=== PATIENT | female | born 1940 | race Hispanic/Latino ===

== ENCOUNTER 2017-06-07 10:57 | Emergency (ER) | payer MEDICARE, OTHER ==
[2017-06-07 11:25] VITALS: BMI 32.0
[2017-06-07 11:38] VITALS: TEMP 98.3
--- NOTE | 2017-06-07 11:50 | RAD ---
HISTORY: r/o infiltrate COMPARISON: 03/29/2016 at 1335 hours FINDINGS: LUNGS: Shallow lung volumes. No consolidation PLEURA: No significant pleural effusion identified, no pneumothorax apparent. CARDIOVASCULAR: Cardiomegaly. Central pulmonary venous congestion probable- in addition to crowding due to shallow lung volumes OSSEOUS STRUCTURES: Cervical thoracic spondylosis. Bilateral shoulder arthrosis. . 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 OTHER FINDINGS: None. IMPRESSION: Cardiomegaly with central pulmonary venous congestion - probably similar allowing for the more shallow current lung volumes.
--- NOTE | 2017-06-07 11:54 | C.PDOC ---
History Of Present Illness 77 year old female presents to the ED c/o upper abdominal pain she describes as "squeezing" for the past 2 days. Patient reports she ate last night without any difficulty. Patient denies fever, chills, nausea, vomit, CP, SOB, cough. Chief Complaint (Nursing): Chest Pain History Per: Patient History/Exam Limitations: no limitations Onset/Duration Of Symptoms: Days Current Symptoms Are (Timing): Still Present Quality: Squeezing Alleviating Factors: None Recent travel outside of the [place]: No Additional History Per: Patient Past Medical History Reviewed: Historical Data, Nursing Documentation, Vital Signs Vital Signs: Last Vital Signs Temp 98.3 F 06/07/17 11:38 Pulse 68 06/07/17 14:07 Resp 16 06/07/17 14:07 BP 119/58 L 06/07/17 14:07 Pulse Ox 98 06/07/17 14:07 - Medical History PMH: Anemia, Anxiety, Arthritis, CHF, Depression, Fractures (right ankle), Gall Bladder Disease, HTN, Hypercholesterolemia, Hypothyroidism Denies: Alzheimer's Disease, Asthma, Bipolar Disorder, Bronchitis, Cardia Arrhythmia, COPD, Crohn's Disease, Dementia, Diverticulitis, Emphysema, Fibromyalgia, Gastrointestinal Ulcer, HIV, Hyperthyroidism, Kidney Stones, Migraine, Mitral Valve Prolapse, Osteoporosis, Pancreatitis, Paranoia, Parkinson 's Disease, Peripheral Edema, Pneumonia, Post Traumatic Stress Disorder, Chronic Kidney Disease, Schizophrenia, Seizures, Sickle Cell Disease, Sexually Transmitted Disease, Sleep Apnea, TIA Surgical History: Cholecystectomy, Coronary Stent (x2) Denies: Appendectomy, Pacemaker - [facility] Procedures FLUOROSCOPY OF LEFT HEART USING LOW OSMOLAR CONTRAST (03/29/16) FLUOROSCOPY OF MULT COR ART USING L OSM CONTRAST (03/29/16) MEASURE OF CARDIAC SAMPL & PRESSURE, L HEART, PERC APPROACH (03/29/16) Family History: States: Unknown Family Hx - Social History Hx Alcohol Use: No Hx Substance Use: No Review Of Systems Constitutional: Negative for: Fever, Chills Cardiovascular: Negative for: Chest Pain, Palpitations Respiratory: Negative for: Cough, Shortness of Breath Gastrointestinal: Positive for: Abdominal Pain. Negative for: Nausea, Vomiting Genitourinary: Negative for: Dysuria Musculoskeletal: Negative for: Back Pain Skin: Negative for: Rash Neurological: Negative for: Weakness, Numbness Physical Exam - Physical Exam Appears: Non-toxic, No Acute Distress Skin: Normal Color, Warm, Dry Head: Atraumatic, Normacephalic Nose: No Discharge Oral Mucosa: Moist Neck: Normal ROM, Supple Chest: Symmetrical Cardiovascular: Rhythm Regular, No Murmur Respiratory: Normal Breath Sounds, No Rales, No Rhonchi, No Wheezing Gastrointestinal/Abdominal: Soft, Tenderness (mild upper abdomen), No Guarding, No Rebound Extremity: Normal ROM, Pedal Edema (lower extremities), No Calf Tenderness, No Deformity, No Swelling Neurological/Psych: Oriented x3, Normal Speech, Normal Cognition ED Course And Treatment - Laboratory Results Result Diagrams: 06/07/17 11:50 06/07/17 11:50 ECG: Interpreted By Me, Viewed By Me ECG Rhythm: Sinus Rhythm Interpretation Of ECG: Left axis deviation, 1st degree AV block Rate From EC O2 Sat by Pulse Oximetry: 97 (On RA) Pulse Ox Interpretation: Normal - Radiology CXR: Viewed By Me, Read By Radiologist CXR Interpretation: Yes: Cardiomegaly (Cardiomegaly with central pulmonary venous congestion - probably similar allowing for the more shallow current lung volumes.) - CT Scan/US CT abd/pelvis Other Rad Studies (CT/US): Read By Radiologist, Radiology Report Reviewed CT/US Interpretation: FINDINGS: LOWER THORAX: No infiltrate or effusion. Mild cardiomegaly. Coronary arterial calcification. LIVER: Nodular contour consistent with hepatic cirrhosis. No mass. No biliary ductal dilatation. GALLBLADDER AND BILE DUCTS: Not visualized. Likely contracted. Please correlate with any history of cholecystectomy. PANCREAS: Unremarkable. No gross lesion or ductal dilatation. SPLEEN: Unremarkable. ADRENALS: Unremarkable. No mass. KIDNEYS AND URETERS: Partially duplicated right renal collecting system. Right upper pole renal cyst, 7.1 cm, measuring 7 Hounsfield units attenuation. Two small nonobstructing calculi lower pole left kidney. Probable cortical calcification mid left kidney. No hydronephrosis. VASCULATURE : Unremarkable. No aortic aneurysm. BOWEL: Diverticulosis of distal descending and sigmoid colon. No evidence of diverticulitis. No bowel obstruction. APPENDIX: Unremarkable. Normal appendix. PERITONEUM: Unremarkable. No free fluid. No free air. LYMPH NODES: Unremarkable. No enlarged lymph nodes. BLADDER: Unremarkable. REPRODUCTIVE: Normal postmenopausal uterus. BONES: No evidence of fracture. Multilevel degenerative disc disease. OTHER FINDINGS: None. IMPRESSION: Probable hepatic cirrhosis. Gallbladder not well visualized. Likely contracted. Coronary arterial calcification. Additional minor findings as above Medical Decision Making Medical Decision Making: Impression : abdominal pain Plan: * EKG * CT abdo/pelvis * Blood work * Pepcid 20 mg IVP * Toradol 30 mg IVP * Zofran 4 mg IVP * urine culture * UA Patient states she is feeling better and will be d/c home. Patient was instructed to follow up with her PMD in 1-2 days for further evaluation. Disposition - Disposition Referrals: Heath Han [Staff Provider] - Disposition: HOME/ ROUTINE Disposition Time: 12:50 Condition: IMPROVED Additional Instructions: Thank you for letting us take care of you today. The emergency medical care you received today was directed at your acute symptoms. If you were prescribed any medication, please fill it and take as directed. It may take several days for your symptoms to resolve. Return to the Emergency Department if your symptoms worsen, do not improve, or if you have any other problems. Please contact your doctor or call one of the physicians/clinics you have been referred to that are listed on the Patient Visit Information form that is included in your discharge packet. Bring any paperwork you were given at discharge with you along with any medications you are taking to your follow up visit. Our treatment cannot replace ongoing medical care by a primary care provider (PCP) outside of the emergency department. Thank you for allowing the [facility] team to be part of your care today. Follow up with Dr. Han in 1-2 days for re-evaluation and further management. Prescriptions: Ciprofloxacin [Cipro] 500 mg PO BID #14 tab Ibuprofen [Motrin] 600 mg PO Q6 PRN #20 tab PRN Reason: Pain, Moderate (4-7) Ranitidine HCl [Zantac] 150 mg PO BID #20 tablet Instructions: Abdominal Pain (ED) Forms: [employer] ([place]ese) - Clinical Impression Clinical Impression: Abdominal pain - Scribe Statement The provider has reviewed the documentation as recorded by the Scribe Bird Cochran All medical record entries made by the Scribe were at my direction and personally dictated by me. I have reviewed the chart and agree that the record accurately reflects my personal performance of the history, physical exam, medical decision making, and the department course for this patient. I have also personally directed, reviewed, and agree with the discharge instructions and disposition.
[2017-06-07 12:07] LABS: BASO # 0.1 K/uL (0.0-0.2); BASO % 0.9 % (0.0-2.0); EOS # 0.1 K/uL (0.0-0.7); HEMATOCRIT 30.6 % (34.0-47.0); LYMPH # 0.9 K/uL (1.0-4.3); LYMPH % 12.3 % (20.0-40.0); MEAN CELL VOLUME 90.8 fL (81.0-99.0); MEAN CORPUSCULAR HEMOGLOBIN 30.5 pg (27.0-31.0); MEAN CORPUSCULAR HGB CONC 33.6 g/dL (33.0-37.0); MEAN PLATELET VOLUME 7.3 fL (7.2-11.7); MONO # 0.6 K/uL (0.0-0.8); MONO % 8.3 % (0.0-10.0); RED CELL DISTRIBUTION WIDTH 16.4 % (11.5-14.5)
[2017-06-07 12:08] LABS: WHITE BLOOD COUNT 7.3 K/uL (4.8-10.8)
--- NOTE | 2017-06-07 12:13 | CT ---
PROCEDURE: CT Abdomen and Pelvis without intravenous contrast HISTORY: upper abdominal pain COMPARISON: None. TECHNIQUE: Without contrast.. Contrast Dose: 0 Radiation dose: Total exam DLP = 1187.59 mGy-cm. This CT exam was performed using one or more of the following dose reduction techniques: Automated exposure control, adjustment of the mA and/or kV according to patient size, and/or use of iterative reconstruction technique. FINDINGS: LOWER THORAX: No infiltrate or effusion. Mild cardiomegaly. Coronary arterial calcification. LIVER: Nodular contour consistent with hepatic cirrhosis. No mass. No biliary ductal dilatation. GALLBLADDER AND BILE DUCTS: Not visualized. Likely contracted. Please correlate with any history of cholecystectomy. PANCREAS: Unremarkable. No gross lesion or ductal dilatation. SPLEEN: Unremarkable. ADRENALS: Unremarkable. No mass. KIDNEYS AND URETERS: Partially duplicated right renal collecting system. Right upper pole renal cyst, 7.1 cm, measuring 7 Hounsfield units attenuation. Two small nonobstructing calculi lower pole left kidney. Probable cortical calcification mid left kidney. No hydronephrosis. VASCULATURE: Unremarkable. No aortic aneurysm. BOWEL: Diverticulosis of distal descending and sigmoid colon. No evidence of diverticulitis. No bowel obstruction. APPENDIX: Unremarkable. Normal appendix. PERITONEUM: Unremarkable. No free fluid. No free air. LYMPH NODES: Unremarkable. No enlarged lymph nodes. BLADDER: Unremarkable. REPRODUCTIVE: Normal postmenopausal uterus BONES: No evidence of fracture. Multilevel degenerative disc disease. OTHER FINDINGS: None. IMPRESSION: Probable hepatic cirrhosis. Gallbladder not well visualized. Likely contracted. Coronary arterial calcification. Additional minor findings as above
[2017-06-07 12:20] LABS: BILIRUBIN,TOTAL 0.7 mg/dL (0.2-1.3); CALCIUM 8.4 mg/dl (8.6-10.4); POTASSIUM 3.9 mmol/L (3.6-5.2); TOTAL PROTEIN 6.9 g/dL (6.3-8.3)
[2017-06-07 12:35] LABS: TROPONIN I 0.015 ng/mL (0.00-0.120)
[2017-06-07 14:08] VITALS: BP 119/58; PULSE 68; RESP 16
[2017-06-07 18:32] VITALS: O2SAT 97
== END 2017-06-07 14:21 | disposition home or self-care (01) ==
LOC: C.ER 10:57
DX: R10.10 Upper abdominal pain, unspecified (principal); E78.00 Pure hypercholesterolemia, unspecified; I50.9 Heart failure, unspecified; I10 Essential (primary) hypertension; E03.9 Hypothyroidism, unspecified
CPT/HCPCS: 71010; 74176; 80053; 83690; 83880; 84484; 85025; 96374; 96375; 99284; J1885; J2405

== ENCOUNTER 2017-06-13 11:57 | Inpatient (IN) | payer MEDICARE, OTHER ==
[2017-06-13 11:57] VITALS: BMI 45.7
--- NOTE | 2017-06-13 12:44 | C.PDOC ---
History Of Present Illness 77 y/o female with PMHx of CHF and CAD presents to ED with complaints of sob with excertion, chest soreness and abdominal pain "for few days". Patient also complaints of bilateral leg swelling. Patient was seen recently at ED had negative labs and CT, was discharged home. Patient denies fever, chills, nausea , vomiting, weakness, numbness or any other complaints at this time. Time Seen by Provider: 06/13/17 12:19 Chief Complaint (Nursing): Abdominal Pain History Per: Patient History/Exam Limitations: no limitations Onset/Duration Of Symptoms: Days Current Symptoms Are (Timing): Still Present Past Medical History Reviewed: Historical Data, Nursing Documentation, Vital Signs Vital Signs: Last Vital Signs Temp 97.9 F 06/13/17 16:45 Pulse 60 06/13/17 16:45 Resp 20 06/13/17 16:45 BP 117/42 L 06/13/17 16:45 Pulse Ox 94 L 06/13/17 17:33 - Medical History PMH: Anemia, Anxiety, Arthritis, CHF, Depression, Fractures (right ankle), Gall Bladder Disease, HTN, Hypercholesterolemia, Hypothyroidism Surgical History: Cholecystectomy, Coronary Stent (x2) - [facility] Procedures FLUOROSCOPY OF LEFT HEART USING LOW OSMOLAR CONTRAST (03/29/16) FLUOROSCOPY OF MULT COR ART USING L OSM CONTRAST (03/29/16) MEASURE OF CARDIAC SAMPL & PRESSURE, L HEART, PERC APPROACH (03/29/16) Family History: States: No Known Family Hx - Social History Hx Alcohol Use: No Hx Substance Use: No Review Of Systems Constitutional: Negative for: Fever, Chills Cardiovascular: Positive for: Chest Pain (soreness) Respiratory: Positive for: SOB with Excertion Gastrointestinal: Negative for: Nausea, Vomiting Musculoskeletal: Positive for: Leg Pain Skin: Negative for: Rash Neurological: Negative for: Weakness, Numbness Physical Exam - Physical Exam Appears: Non-toxic, No Acute Distress Skin: Normal Color, Warm, Dry, No Rash Head: Atraumatic, Normacephalic Oral Mucosa: Moist Neck: Supple Chest: Symmetrical Cardiovascular: Rhythm Regular Respiratory: Rales (At bases bilaterally), No Rhonchi, No Wheezing Gastrointestinal/Abdominal: Soft, Tenderness (Epigastric), No Guarding, No Rebound Extremity: Pedal Edema (+2 bilateral), No Deformity Extremity: Bilateral: Normal ROM Pulses: Left Dorsalis Pedis: Normal, Right Dorsalis Pedis: Normal Neurological/Psych: Oriented x3, Normal Motor, Normal Sensation ED Course And Treatment - Laboratory Results Result Diagrams: 06/13/17 12:53 06/13/17 12:53 ECG: Interpreted By Me, Viewed By Me ECG Rhythm: Sinus Rhythm Rate From EC (bpm) O2 Sat by Pulse Oximetry: 94 (ra) Pulse Ox Interpretation: Normal Medical Decision Making Medical Decision Making: ro chf, dvt- recent neg abd ct neg. labs imagign pending 300: pt reassesed noted cxr with pulm vasc congestion, and elevated bnp. lasix dosed. discussed with hospitalist. accepts for admission. Progress: Patient state she took Aspirin today Disposition - Disposition Disposition: HOSPITALIZED Disposition Time: 05:00 Condition: FAIR - Clinical Impression Clinical Impression: Abdominal pain, CHF (congestive heart failure) - Scribe Statement The provider has reviewed the documentation as recorded by the Scribe Inder Caro All medical record entries made by the Scribe were at my direction and personally dictated by me. I have reviewed the chart and agree that the record accurately reflects my personal performance of the history, physical exam, medical decision making, and the department course for this patient. I have also personally directed, reviewed, and agree with the discharge instructions and disposition. Decision To Admit - Pt Status Changed To: Hospital Disposition Of: Inpatient - Admit Certification Admit to Inpatient:: After my assessment, the patient will require hospitalization for at least two midnights. This is because of the severity of symptoms shown, intensity of services needed, and/or the medical risk in this patient being treated as an outpatient. - InPatient: Physician Admission Certification:: needs iv diuresis - . Bed Request Type: Telemetry Admitting Physician: Jackie Vargas Patient Diagnosis: Abdominal pain, CHF (congestive heart failure)
[2017-06-13 12:57] LABS: BASO % 0.3 % (0.0-2.0); EOS % 0.5 % (0.0-4.0); HEMOGLOBIN 8.8 g/dL (11.0-16.0); LYMPH # 0.6 K/uL (1.0-4.3); LYMPH % 9.3 % (20.0-40.0); MEAN CORPUSCULAR HEMOGLOBIN 30.2 pg (27.0-31.0); MEAN CORPUSCULAR HGB CONC 33.2 g/dL (33.0-37.0); MEAN PLATELET VOLUME 7.2 fL (7.2-11.7); MONO # 0.4 K/uL (0.0-0.8); MONO % 6.3 % (0.0-10.0); NEUT # 5.8 K/uL (1.8-7.0); NEUT % 83.6 % (50.0-75.0); PLATELET COUNT 161 K/uL (130-400); RBC 2.92 Mil/uL (3.80-5.20); RED CELL DISTRIBUTION WIDTH 16.3 % (11.5-14.5)
[2017-06-13 13:06] LABS: INR 1.2; PROTHROMBIN TIME 14.3 SECONDS (9.7-12.2)
--- NOTE | 2017-06-13 13:18 | RAD ---
HISTORY: chest pain COMPARISON: Chest x-ray performed 06/07/17 TECHNIQUE: Chest, one view. FINDINGS: Examination limited by habitus and hypoinflation. LUNGS: Pulmonary vascular congestion versus vascular crowding due to hypoinflation. Please note that chest x-ray has limited sensitivity for the detection of pulmonary masses. PLEURA: No significant pleural effusion identified. No definite pneumothorax . CARDIOVASCULAR: Borderline cardiomegaly. OSSEOUS STRUCTURES: Osseous demineralization. Degenerative changes of the spine and shoulders. VISUALIZED UPPER ABDOMEN: Unremarkable. OTHER FINDINGS: None. IMPRESSION: Pulmonary venous congestion versus vascular crowding due to hypoinflation. Borderline cardiomegaly. Osseous demineralization. Degenerative changes.
[2017-06-13 13:21] LABS: TROPONIN I 0.038 ng/mL (0.00-0.120)
[2017-06-13 13:32] LABS: ALB/GLOB RATIO 0.9 (1.0-2.1)
[2017-06-13 13:33] LABS: ANISOCYTOSIS SLIGHT; BANDS 1 % (0-2); HYPOCHROMIC SLIGHT; LYMPHOCYTE 10 % (20-40); MONOCYTE 7 % (0-10); NEUTROPHIL 82 % (50-75); PLATELET ESTIMATE NORMAL (NORMAL); POIKILOCYTOSIS SLIGHT; TOTAL CELLS COUNTED 100
[2017-06-13] MEDS ORDERED: Potassium Chloride 20 mEq ER Tab PO STA (13:33)
[2017-06-13 13:34] LABS: TARGET CELLS SLIGHT
[2017-06-13] MEDS ORDERED: Potassium Chloride 20 mEq ER Tab PO ONE (13:44)
[2017-06-13 13:52] LABS: SQUAMOUS EPITHIAL < 1 /hpf (0-5); URINE BACTERIA OCC (<OCC); URINE BILIRUBIN NEGATIVE (NEGATIVE); URINE BLOOD NEGATIVE (NEGATIVE); URINE CLARITY Clear (Clear); URINE COLOR Yellow (YELLOW); URINE GLUCOSE (UA) NORMAL (Normal); URINE LEUKOCYTE ESTERASE NEG Leu/uL (Negative); URINE NITRATE NEGATIVE (NEGATIVE); URINE PROTEIN NEGATIVE (NEGATIVE); URINE UROBILINOGEN NORMAL mg/dL (0.2-1.0)
[2017-06-13 13:57] LABS: URINE HYALINE CAST >20 /lpf (0-2)
--- NOTE | 2017-06-13 16:06 | CP.PCM.HP ---
<Araceli Key - Last Filed: 06/13/17 17:54> History of Present Illness - History of Present Illness History of Present Illness: CC: "My legs hurt, I cant stand on them" HPI: Patient is a 77 year old female with past medical history of CHF, ID, HTN, HLD, CKD, CAD s/p 4 stents (last stent was placed in 2016) presents to the ED for bilateral lower extremity pain that has progressively getting worse. Patient has also noticed lower extremity swelling. Patient ambulates with a rollator however has not been able to walk due to the pain. Patient took ibuprofen at home with no relief in symptoms. Patient states that she does get short of breath on exertion, however she is currently at her baseline. Patient was recently seen in the ED for abdominal pain. At that time she was discharged on Ciprofloxacin, Motrin and Zantac. Denies fevers, chills, headaches, dizziness , cp, palpitations, urinary symptoms. Admits to feeling constipated, last BM was on Sunday. PMD: Dr Han Cardiology: Dr Maravilla Allergies: Iodinated contrast, PCN, sulfa, erythromycin base Medications: Levothyroxine 100mcg, Losartan 25mg, Lasix 40/20mg QamQpm, Gabapentin 300mg TID, Plavix 75mg, ASA 81mg, Carvedilol 3.125mg, Crestor 20mg Medical Hx: CHF, ID, HTN, HLD, CKD, CAD s/p 4 stents (last stent was placed in 2016 at [facility]), Hypothyroidism Surgical Hx: Cholecystectomy, B/L cataract surgery, D+C, Cyst removal from arm Social Hx: former smoker (3ppd x 2-3yrs - quit 42yrs ago); social alcohol use; no recreational drug use Family Hx: Father - cardiac arrest, heart dz, deafness; Brother - brain aneurysm ; Maternal grandfather - cancer Present on Admission - Present on Admission Any Indicators Present on Admission: No Review of Systems - Review of Systems All systems: reviewed and no additional remarkable complaints except - Constitutional Constitutional: absent: Chills, Fever, Frequent Falls, Headache - EENT Eyes: absent: Blurred Vision, Change in Vision Ears: absent: Dizziness - Cardiovascular Cardiovascular: Dyspnea, Leg Edema. absent: Chest Pain, Lightheadedness, Palpitations - Respiratory Respiratory: Dyspnea. absent: Cough, Wheezing - Gastrointestinal Gastrointestinal: Abdominal Pain, Constipation. absent: Diarrhea, Nausea, Vomiting (diffuse ) - Genitourinary Genitourinary: absent: Dysuria, Hematuria - Musculoskeletal Musculoskeletal: Numbness, Tingling - Neurological Neurological: Abnormal Gait. absent: Dizziness, Headaches, Weakness Past Patient History - Infectious Disease Hx of Infectious Diseases: None - Past Medical History & Family History Past Medical History?: Yes - Past Social History Smoking Status: Never Smoked - CARDIAC Hx Congestive Heart Failure: Yes Hx Hypercholesterolemia: Yes Hx Hypertension: Yes - PULMONARY Hx Emphysema: No Hx Sleep Apnea: No - NEUROLOGICAL Hx Seizures: No Hx Transient Ischemic Attacks (TIA): No - HEENT Hx HEENT Problems: Yes Hx Cataracts: Yes - RENAL Hx Chronic Kidney Disease: No - ENDOCRINE/METABOLIC Hx Hypothyroidism: Yes - HEMATOLOGICAL/ONCOLOGICAL Hx Anemia: Yes - INTEGUMENTARY Hx Dermatological Problems: Yes Other/Comment: rash right groin - MUSCULOSKELETAL/RHEUMATOLOGICAL Hx Arthritis: Yes Hx Fractures: Yes (right ankle) - GASTROINTESTINAL Hx Gall Bladder Disease: Yes - GENITOURINARY/GYNECOLOGICAL Hx Sexually Transmitted Disorders: No - PSYCHIATRIC Hx Anxiety: Yes Hx Depression: Yes Hx Substance Use: No - SURGICAL HISTORY Hx Cholecystectomy: Yes Hx Coronary Stent: Yes (x2) - ANESTHESIA Hx Anesthesia: Yes Hx Anesthesia Reactions: No Meds Allergies/Adverse Reactions: Allergies Allergy/AdvReac Type Severity Reaction Status Date / Time erythromycin base Allergy RASH Verified 03/27/17 12:34 Iodinated Contrast- Oral and Allergy SHORTNESS Verified 03/29/16 07:16 IV Dye OF BREATH [Iodinated Contrast Media - IV Dye] Penicillins Allergy RASH Verified 03/29/16 07:16 Sulfa (Sulfonamide Allergy RASH Verified 03/29/16 07:16 Antibiotics) ivp dye Allergy RASH Uncoded 03/27/17 12:34 tape Allergy RASH Uncoded 03/27/17 12:34 Physical Exam - Constitutional Appears: Well, No Acute Distress Additional comments: Obese - Head Exam Head Exam: ATRAUMATIC, NORMAL INSPECTION, NORMOCEPHALIC - Eye Exam Eye Exam: EOMI, Normal appearance - ENT Exam ENT Exam: Mucous Membranes Moist - Neck Exam Neck exam: Positive for: Full Rom - Respiratory Exam Respiratory Exam: Decreased Breath Sounds, Rales (Bilateral crackles in lower lung astudillo), NORMAL BREATHING PATTERN. absent: Accessory Muscle Use, Respiratory Distress Additional comments: Poor inspiratory effort - Cardiovascular Exam Cardiovascular Exam: REGULAR RHYTHM, +S1, +S2, Systolic Murmur. absent: Tachycardia - GI/Abdominal Exam GI & Abdominal Exam: Distended, Normal Bowel Sounds, Soft, Tenderness (Diffuse abdominal tenderness). absent: Firm, Guarding, Rigid - Rectal Exam Rectal Exam: Deferred - Extremities Exam Additional comments: +2 lower extremity edema bilaterally Pulses palpable bilaterally Right: 2cm healing ulcer on posterior aspect of right leg, dressed with island dressing and xeroform Left: warm to touch, erythema noted on lateral aspect of left leg - Neurological Exam Neurological exam: Alert, Oriented x3 - Psychiatric Exam Psychiatric exam: Normal Affect, Normal Mood - Skin Skin Exam: Dry, Normal Color, Warm Results - Vital Signs Recent Vital Signs: Last Vital Signs Temp 97.8 F 06/13/17 15:32 Pulse 60 06/13/17 15:32 Resp 18 06/13/17 15:32 BP 105/51 L 06/13/17 15:32 Pulse Ox 96 06/13/17 15:32 - Labs Result Diagrams: 06/13/17 12:53 06/13/17 12:53 Labs: Laboratory Results - last 24 hr 06/13/17 06/13/17 06/13/17 12:49 12:53 12:53 WBC 7.0 RBC 2.92 L Hgb 8.8 L Hct 26.5 L MCV 91.0 MCH 30.2 MCHC 33.2 RDW 16.3 H Plt Count 161 MPV 7.2 Neut % (Auto) 83.6 H Lymph % (Auto) 9.3 L [place] % (Auto) 6.3 Eos % (Auto) 0.5 Baso % (Auto) 0.3 Neut # 5.8 Lymph # 0.6 L [place] # 0.4 Eos # 0.0 Baso # 0.0 Neutrophils % (Manual) 82 H Band Neutrophils % 1 Lymphocytes % (Manual) 10 L Monocytes % (Manual) 7 Platelet Estimate Normal Hypochromasia (manual) Slight Poikilocytosis (manual Slight Anisocytosis (manual) Slight Target Cells Slight PT 14.3 H INR 1.2 APTT 28 Sodium Potassium Chloride Carbon Dioxide Anion Gap BUN Creatinine Est GFR ( Amer) Est GFR (Non-Af Amer) Random Glucose Calcium Total Bilirubin AST ALT Alkaline Phosphatase Troponin I NT-Pro-B Natriuret Pep Total Protein Albumin Globulin Albumin/Globulin Ratio Lipase Urine Color Yellow Urine Clarity Clear Urine pH 5.0 Ur Specific [place] 1.014 Urine Protein Negative Urine Glucose (UA) Normal Urine Ketones Negative Urine Blood Negative Urine Nitrate Negative Urine Bilirubin Negative Urine Urobilinogen Normal Ur Leukocyte Esterase Neg Urine WBC (Auto) 6 H Urine RBC (Auto) 3 Ur Squamous Epith Cells < 1 Urine Bacteria Occ H Hyaline Casts >20 H 06/13/17 12:53 WBC RBC Hgb Hct MCV MCH MCHC RDW Plt Count MPV Neut % (Auto) Lymph % (Auto) [place] % (Auto) Eos % (Auto) Baso % (Auto) Neut # Lymph # [place] # Eos # Baso # Neutrophils % (Manual) Band Neutrophils % Lymphocytes % (Manual) Monocytes % (Manual) Platelet Estimate Hypochromasia (manual) Poikilocytosis (manual Anisocytosis (manual) Target Cells PT INR APTT Sodium 138 Potassium 3.2 L Chloride 102 Carbon Dioxide 30 Anion Gap 10 BUN 36 H Creatinine 1.8 H Est GFR ( Amer) 33 Est GFR (Non-Af Amer) 27 Random Glucose 136 H Calcium 8.0 L Total Bilirubin 0.4 AST 33 ALT 21 Alkaline Phosphatase 63 Troponin I 0.0380 NT-Pro-B Natriuret Pep 4500 H Total Protein 6.4 Albumin 3.0 L Globulin 3.4 Albumin/Globulin Ratio 0.9 L Lipase 215 Urine Color Urine Clarity Urine pH Ur Specific [place] Urine Protein Urine Glucose (UA) Urine Ketones Urine Blood Urine Nitrate Urine Bilirubin Urine Urobilinogen Ur Leukocyte Esterase Urine WBC (Auto) Urine RBC (Auto) Ur Squamous Epith Cells Urine Bacteria Hyaline Casts Assessment & Plan - Assessment and Plan (Free Text) Assessment: Acute on Chronic CHF exacerbation -Stable, afebrile -Will admit to med/surg tele -BNP 4500 -Cardiac Catheterization 03/2016 showed EF 25-30% -CXR: pulmonary venous congestion vs vascular crowding due to hypoinflation. Borderline cardiomyopathy -Continue Carvedilol 3.125 mg PO fawn -Continue Cozaar 25mg PO daily -Cardiology on consult, Dr Bautista, help appreciated -Lasix 40mg IVP Qam, Lasix 20mg IVP Qpm -Daily weights, Strict I/Os -Supplemental O2 prn -HOB elevated 45 degrees Bilateral Lower Extremity Pain, Idiopathic Peripheral neuropathy -Lower extremity dopplers pending -Pain contol Ultram 25mg Q8H prn pain -Gabapentin 200mg TID (Home dose lowered due to CKD) -PT/OT evaluation Abdominal Pain -Will continue Ciprofloxacin 400mg IV Q12H -Protonix 40mg PO daily -CT abd/pelvis 05/2017 showed diverticulosis, no evidence of diverticulitis, hepatic cirrhosis Severe Coronary Artery Disease s/p stent placement -Last stent was placed in [address] Kaur at [facility] -Last Cardiac Cath in 2016; 95% proximal LAD and 90% proximal LCX occlusions. EF 25-30%. Elevated pulm artery pressure. -Troponin 0.0380 -Continue ASA 81mg -Continue Plavix 75mg -Continue Crestor 20mg PO HS -Cardiology on consult, Dr Bautista, help appreciated Ischemic Cardiomyopathy, Severe Pulmonary HTN -Continue ASA/Plavix -Cardiology on consult Anemia -Hgb 8.8 today -Baseline Hgb 9-10 -Patient was supposed to follow up with Heme/onc for outpatient workup -No active signs of bleeding at this time, will continue to monitor Hypokalemia -Potassium 3.2 -Replete, continue to monitor Right Lower Extremity Healing Wound -Wound care consulted Chronic Kidney Disease -BUN/Creatinine 36/1.8 -Appears at baseline -Avoid nephrotoxic medications, renally dose all medications -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 ; right upper pole renal cyst 7.1cm Hx of Hypertension -Continue Carvedilol 3.125mg PO daily -Cozaar 25mg PO daily Hx of Hypothyroidism -Continue Levothyroxine 100mcg daily Hx of Hyperlipidemia -Crestor 20mg PO HS -F/U lipid panel Prophylactic Measure -Protonix 40mg PO daily -Heparin 5000U Q8H -Heart Healthy Diet, Salt restricted <Jackie Vargas - Last Filed: 06/14/17 15:42> Results - Vital Signs Recent Vital Signs: Last Vital Signs Temp 98.0 F 06/14/17 07:20 Pulse 59 L 06/14/17 12:00 Resp 20 06/14/17 07:20 BP 110/67 06/14/17 11:51 Pulse Ox 98 06/14/17 07:20 - Labs Result Diagrams: 06/14/17 06:41 06/14/17 06:41 Labs: Laboratory Results - last 24 hr 06/14/17 06/14/17 06/14/17 06:41 06:41 06:41 WBC 6.3 RBC 2.78 L Hgb 8.6 L Hct 25.2 L MCV 90.4 MCH 30.7 MCHC 34.0 RDW 16.0 H Plt Count 161 MPV 7.5 Neut % (Auto) 78.8 H Lymph % (Auto) 12.9 L [place] % (Auto) 6.9 Eos % (Auto) 1.0 Baso % (Auto) 0.4 Neut # 5.0 Lymph # 0.8 L [place] # 0.4 Eos # 0.1 Baso # 0.0 Sodium 138 Potassium 3.3 L Chloride 104 Carbon Dioxide 27 Anion Gap 10 BUN 34 H Creatinine 1.6 H Est GFR ( Amer) 38 Est GFR (Non-Af Amer) 31 Random Glucose 138 H Hemoglobin A1c 6.1 Calcium 7.9 L Phosphorus 3.1 Magnesium 1.8 Total Bilirubin 0.3 AST 35 ALT 24 Alkaline Phosphatase 59 Total Protein 6.1 L Albumin 2.9 L Globulin 3.2 Albumin/Globulin Ratio 0.9 L Triglycerides 79 Cholesterol 98 LDL Cholesterol Direct 35 HDL Cholesterol 29 L Free T4 TSH 3rd Generation 4.08 06/14/17 06:41 WBC RBC Hgb Hct MCV MCH MCHC RDW Plt Count MPV Neut % (Auto) Lymph % (Auto) [place] % (Auto) Eos % (Auto) Baso % (Auto) Neut # Lymph # [place] # Eos # Baso # Sodium Potassium Chloride Carbon Dioxide Anion Gap BUN Creatinine Est GFR ( Amer) Est GFR (Non-Af Amer) Random Glucose Hemoglobin A1c Calcium Phosphorus Magnesium Total Bilirubin AST ALT Alkaline Phosphatase Total Protein Albumin Globulin Albumin/Globulin Ratio Triglycerides Cholesterol LDL Cholesterol Direct HDL Cholesterol Free T4 1.12 TSH 3rd Generation Attending/Attestation - Attestation I have personally seen and examined this patient.: Yes I have fully participated in the care of the patient.: Yes I have reviewed all pertinent clinical information: Yes Notes (Text): Patient was seen and examined Discussed with her daughter at bedside. c/o leg pain,dyspnea on exertion D/W the resident in detail I agree with the resident's documentation of the assessment and the plan
[2017-06-13] MEDS: Ciprofloxacin 400mg/200ml D5W 400 MG/200 ML BAG IVPB SCH (18:51)
[2017-06-13] MEDS: Tramadol 25 mg PO PRN (18:52)
--- NOTE | 2017-06-13 23:35 | CP.PCM.CON ---
History of Present Illness - History of Present Illness History of Present Illness: Patient seen and evaluated Admitted for pedal edema, cellulits and CHF CAD hx of multi vessel PCI Check ECHO Podiatry consult Past Patient History - Infectious Disease Hx of Infectious Diseases: None - Past Medical History & Family History Past Medical History?: Yes - Past Social History Smoking Status: Never Smoked - CARDIAC Hx Cardiac Disorders: Yes Hx Congestive Heart Failure: Yes (Hx) Hx Hypercholesterolemia: Yes Hx Hypertension: Yes - PULMONARY Hx Respiratory Disorders: No Hx Emphysema: No Hx Sleep Apnea: No - NEUROLOGICAL Hx Neurological Disorder: No Hx Seizures: No Hx Transient Ischemic Attacks (TIA): No - HEENT Hx HEENT Problems: Yes Hx Cataracts: Yes - RENAL Hx Chronic Kidney Disease: No - ENDOCRINE/METABOLIC Hx Endocrine Disorders: Yes Hx Hypothyroidism: Yes - HEMATOLOGICAL/ONCOLOGICAL Hx Blood Disorders: Yes Hx Anemia: Yes - INTEGUMENTARY Hx Dermatological Problems: Yes Other/Comment: rash right groin - MUSCULOSKELETAL/RHEUMATOLOGICAL Hx Arthritis: Yes Hx Falls: No Hx Fractures: Yes (right ankle) - GASTROINTESTINAL Hx Gall Bladder Disease: Yes - GENITOURINARY/GYNECOLOGICAL Hx Sexually Transmitted Disorders: No - PSYCHIATRIC Hx Anxiety: Yes Hx Depression: Yes Hx Substance Use: No - SURGICAL HISTORY Hx Cholecystectomy: Yes Hx Coronary Stent: Yes (x2) - ANESTHESIA Hx Anesthesia: Yes Hx Anesthesia Reactions: No Meds Allergies/Adverse Reactions: Allergies Allergy/AdvReac Type Severity Reaction Status Date / Time erythromycin base Allergy RASH Verified 03/27/17 12:34 Iodinated Contrast- Oral and Allergy SHORTNESS Verified 03/29/16 07:16 IV Dye OF BREATH [Iodinated Contrast Media - IV Dye] Penicillins Allergy RASH Verified 03/29/16 07:16 Sulfa (Sulfonamide Allergy RASH Verified 03/29/16 07:16 Antibiotics) ivp dye Allergy RASH Uncoded 03/27/17 12:34 tape Allergy RASH Uncoded 03/27/17 12:34 - Medications Medications: Current Medications Aspirin (Aspirin Chewable) 81 mg PO DAILY [facility] Carvedilol (Coreg) 3.125 mg PO DAILY [facility] Clopidogrel Bisulfate (Plavix) 75 mg PO DAILY [facility] Furosemide (Lasix) 20 mg IVP QPM [facility] Furosemide (Lasix) 40 mg IVP QAM [facility] Gabapentin (Neurontin) 200 mg PO TID [facility] Last Admin: 06/13/17 18:52 Dose: 200 mg Heparin Sodium (Porcine) (Heparin) 5,000 units SC Q8 [facility] Last Admin: 06/13/17 21:40 Dose: 5,000 units Ciprofloxacin (Cipro 400mg/200ml Dsw) 400 mg in 200 mls @ 133 mls/hr IVPB Q12H [facility] Stop: 06/14/17 07:31 Last Admin: 06/13/17 18:51 Dose: 133 mls/hr Levothyroxine Sodium (Synthroid) 100 mcg PO DAILY@0630 [facility] Losartan Potassium (Cozaar) 25 mg PO DAILY [facility] Pantoprazole Sodium (Protonix Ec Tab) 40 mg PO DAILY [facility] Rosuvastatin Calcium (Crestor) 20 mg PO HS [facility] Last Admin: 06/13/17 21:40 Dose: 20 mg Tramadol HCl (Ultram) 25 mg PO TID PRN PRN Reason: Pain, moderate (4-7) Last Admin: 06/13/17 18:52 Dose: 25 mg Results - Vital Signs Recent Vital Signs: Last Vital Signs Temp 98.1 F 06/13/17 18:08 Pulse 71 06/13/17 18:08 Resp 18 06/13/17 18:08 BP 107/64 06/13/17 18:08 Pulse Ox 97 06/13/17 18:08 - Labs Result Diagrams: 06/13/17 12:53 06/13/17 12:53 Labs: Laboratory Results - last 24 hr 06/13/17 06/13/17 06/13/17 12:49 12:53 12:53 WBC 7.0 RBC 2.92 L Hgb 8.8 L Hct 26.5 L MCV 91.0 MCH 30.2 MCHC 33.2 RDW 16.3 H Plt Count 161 MPV 7.2 Neut % (Auto) 83.6 H Lymph % (Auto) 9.3 L [place] % (Auto) 6.3 Eos % (Auto) 0.5 Baso % (Auto) 0.3 Neut # 5.8 Lymph # 0.6 L [place] # 0.4 Eos # 0.0 Baso # 0.0 Neutrophils % (Manual) 82 H Band Neutrophils % 1 Lymphocytes % (Manual) 10 L Monocytes % (Manual) 7 Platelet Estimate Normal Hypochromasia (manual) Slight Poikilocytosis (manual Slight Anisocytosis (manual) Slight Target Cells Slight PT 14.3 H INR 1.2 APTT 28 Sodium Potassium Chloride Carbon Dioxide Anion Gap BUN Creatinine Est GFR ( Amer) Est GFR (Non-Af Amer) Random Glucose Calcium Total Bilirubin AST ALT Alkaline Phosphatase Troponin I NT-Pro-B Natriuret Pep Total Protein Albumin Globulin Albumin/Globulin Ratio Lipase Urine Color Yellow Urine Clarity Clear Urine pH 5.0 Ur Specific [place] 1.014 Urine Protein Negative Urine Glucose (UA) Normal Urine Ketones Negative Urine Blood Negative Urine Nitrate Negative Urine Bilirubin Negative Urine Urobilinogen Normal Ur Leukocyte Esterase Neg Urine WBC (Auto) 6 H Urine RBC (Auto) 3 Ur Squamous Epith Cells < 1 Urine Bacteria Occ H Hyaline Casts >20 H 06/13/17 12:53 WBC RBC Hgb Hct MCV MCH MCHC RDW Plt Count MPV Neut % (Auto) Lymph % (Auto) [place] % (Auto) Eos % (Auto) Baso % (Auto) Neut # Lymph # [place] # Eos # Baso # Neutrophils % (Manual) Band Neutrophils % Lymphocytes % (Manual) Monocytes % (Manual) Platelet Estimate Hypochromasia (manual) Poikilocytosis (manual Anisocytosis (manual) Target Cells PT INR APTT Sodium 138 Potassium 3.2 L Chloride 102 Carbon Dioxide 30 Anion Gap 10 BUN 36 H Creatinine 1.8 H Est GFR ( Amer) 33 Est GFR (Non-Af Amer) 27 Random Glucose 136 H Calcium 8.0 L Total Bilirubin 0.4 AST 33 ALT 21 Alkaline Phosphatase 63 Troponin I 0.0380 NT-Pro-B Natriuret Pep 4500 H Total Protein 6.4 Albumin 3.0 L Globulin 3.4 Albumin/Globulin Ratio 0.9 L Lipase 215 Urine Color Urine Clarity Urine pH Ur Specific [place] Urine Protein Urine Glucose (UA) Urine Ketones Urine Blood Urine Nitrate Urine Bilirubin Urine Urobilinogen Ur Leukocyte Esterase Urine WBC (Auto) Urine RBC (Auto) Ur Squamous Epith Cells Urine Bacteria Hyaline Casts
[2017-06-14] MEDS ORDERED: Bismuth Subsalicylate 262 mg Chew Tab PO ONE (02:33)
[2017-06-14] MEDS: Ciprofloxacin 400mg/200ml D5W 400 MG/200 ML BAG IVPB SCH (05:50)
[2017-06-14] MEDS: Levothyroxine 100 MCG TAB PO SCH (05:51)
[2017-06-14 06:56] LABS: BASO % 0.4 % (0.0-2.0); EOS # 0.1 K/uL (0.0-0.7); HEMOGLOBIN 8.6 g/dL (11.0-16.0); LYMPH # 0.8 K/uL (1.0-4.3); LYMPH % 12.9 % (20.0-40.0); MEAN CELL VOLUME 90.4 fL (81.0-99.0); MEAN CORPUSCULAR HEMOGLOBIN 30.7 pg (27.0-31.0); MEAN PLATELET VOLUME 7.5 fL (7.2-11.7); MONO # 0.4 K/uL (0.0-0.8); MONO % 6.9 % (0.0-10.0); NEUT % 78.8 % (50.0-75.0); RBC 2.78 Mil/uL (3.80-5.20); WHITE BLOOD COUNT 6.3 K/uL (4.8-10.8)
[2017-06-14 07:00] LABS: ALBUMIN 2.9 g/dL (3.5-5.0); CALCIUM 7.9 mg/dl (8.6-10.4); MAGNESIUM 1.8 mg/dL (1.6-2.3)
[2017-06-14 07:02] LABS: ALB/GLOB RATIO 0.9 (1.0-2.1)
[2017-06-14] MEDS ORDERED: Potassium Chloride 20 mEq ER Tab PO SCH (10:00)
--- NOTE | 2017-06-14 10:00 | VASCLAB ---
PROCEDURE: Lower Extremity Venous Duplex Exam. HISTORY: leg pain PRIORS: None. TECHNIQUE: Bilateral common femoral, femoral, popliteal and posterior tibial, peroneal and great saphenous veins were evaluated. Flow was assessed with color Doppler, compressibility, assessment of phasic flow and augmentation response. Report prepared by JOHN Garcia, RVT FINDINGS: RIGHT: 1. Common Femoral Vein: 1.1. Compressibility - Fully compressible: Thrombus - None : Flow - Phasic: Augmentation -Normal: Reflux - None. 2. Femoral Vein: 2.1. Compressibility - Fully compressible: Thrombus - None : Flow - Phasic: Augmentation -Normal: Reflux - None. 3. Popliteal Vein: 3.1. Compressibility - Fully compressible: Thrombus - None : Flow - Phasic: Augmentation -Normal: Reflux - None. 4. Posterior Tibial Vein: 4.1. Compressibility - Fully compressible: Thrombus - None: Flow - Phasic: Augmentation -Normal: Reflux - None. 5. Peroneal Vein: 5.1. Compressibility - Fully compressible: Thrombus - None: Flow - Phasic: Augmentation -Normal: Reflux - None. 6. Great Saphenous Vein: 6.1. Compressibility - Fully compressible: Thrombus - None: Flow - Phasic: Augmentation - Normal: Reflux - None. LEFT: 1. Common Femoral Vein: 1.1. Compressibility - Fully compressible: Thrombus - None: Flow - Phasic: Augmentation -Normal: Reflux - None. 2. Femoral Vein: 2.1. Compressibility - Fully compressible: Thrombus - None: Flow - Phasic: Augmentation -Normal: Reflux - None. 3. Popliteal Vein: 3.1. Compressibility - Fully compressible: Thrombus - None : Flow - Phasic: Augmentation -Normal: Reflux - None. 4. Posterior Tibial Vein: 4.1. Compressibility - Fully compressible: Thrombus - None: Flow - Phasic: Augmentation -Normal: Reflux - None. 5. Peroneal Vein: 5.1. Compressibility - Fully compressible: Thrombus - None: Flow - Phasic: Augmentation -Normal: Reflux - None. 6. Great Saphenous Vein: 6.1. Compressibility - Fully compressible: Thrombus - None: Flow - Phasic: Augmentation - Normal: Reflux - None. OTHER FINDINGS: Technically limited study due to patient intolerance to compressions. IMPRESSION: Right: No evidence of deep or superficial vein thrombosis of the right lower extremity. Normal valve function noted of the right side. Left: No evidence of deep or superficial vein thrombosis of the left lower extremity. Normal valve function noted of the left side.
[2017-06-14] MEDS: Tramadol 25 mg PO PRN ×2 (10:52→20:01)
[2017-06-14] MEDS: Pantoprazole 40 mg EC Tab PO SCH (10:53)
--- NOTE | 2017-06-14 12:56 | CP.PCM.PN ---
<Ame Catalan - Last Filed: 06/14/17 12:50> Subjective - Date & Time of Evaluation Date of Evaluation: 06/14/17 Time of Evaluation: 07:00 - Subjective Subjective: PGY1- Medicine Note- Dr. Vargas's service Patient seen and examined at bedside and in no acute distress. Patient says her legs are painful to touch and it is hard for her to put any weight on them. Patient says the pain is the same as yesterday and feels like burning/stinging. Patient also complains of chronic shoulder pain which she says makes it hard for her to move, and she is worried she will not be able to tolerate her Echo. Patient denies any headache, shortness of breath, chest pain, abdominal pain, nausea, vomiting, constipation, or diarrhea. Objective - Vital Signs/Intake and Output Vital Signs (last 24 hours): Temp Pulse Resp BP Pulse Ox 98.0 F 60 20 110/67 98 06/14/17 07:20 06/14/17 11:49 06/14/17 07:20 06/14/17 11:51 06/14/17 07:20 Intake and Output: 06/14/17 06/14/17 06:59 18:59 Intake Total 200 Balance 200 - Medications Medications: Current Medications Aspirin (Aspirin Chewable) 81 mg PO DAILY [facility] Last Admin: 06/14/17 10:52 Dose: 81 mg Carvedilol (Coreg) 3.125 mg PO DAILY [facility] Last Admin: 06/14/17 10:53 Dose: 3.125 mg Ciprofloxacin (Cipro) 500 mg PO BID [facility] Clopidogrel Bisulfate (Plavix) 75 mg PO DAILY [facility] Last Admin: 06/14/17 10:54 Dose: 75 mg Furosemide (Lasix) 20 mg IVP QPM [facility] Furosemide (Lasix) 40 mg IVP QAM [facility] Last Admin: 06/14/17 11:51 Dose: 40 mg Gabapentin (Neurontin) 200 mg PO TID [facility] Last Admin: 06/14/17 10:53 Dose: 200 mg Heparin Sodium (Porcine) (Heparin) 5,000 units SC Q8 [facility] Last Admin: 06/14/17 05:50 Dose: 5,000 units Levothyroxine Sodium (Synthroid) 100 mcg PO DAILY@0630 [facility] Last Admin: 06/14/17 05:51 Dose: 100 mcg Losartan Potassium (Cozaar) 25 mg PO DAILY [facility] Last Admin: 06/14/17 10:53 Dose: 25 mg Mupirocin (Bactroban Ointment) 0 gm TOP BID [facility] Last Admin: 06/14/17 11:50 Dose: Not Given Pantoprazole Sodium (Protonix Ec Tab) 40 mg PO DAILY [facility] Last Admin: 06/14/17 10:53 Dose: 40 mg Rosuvastatin Calcium (Crestor) 20 mg PO [facility] Last Admin: 06/13/17 21:40 Dose: 20 mg Tramadol HCl (Ultram) 25 mg PO TID PRN PRN Reason: Pain, moderate (4-7) Last Admin: 06/14/17 10:52 Dose: 25 mg Zolpidem Tartrate (Ambien) 5 mg PO HS PRN PRN Reason: Insomnia Stop: 06/15/17 02:00 - Labs Labs: 06/14/17 06:41 06/14/17 06:41 PT 14.3 SECONDS (9.7-12.2) H 06/13/17 12:53 INR 1.2 06/13/17 12:53 APTT 28 SECONDS (21-34) 06/13/17 12:53 - Constitutional Appears: Non-toxic, Other (morbidly obese) - Head Exam Head Exam: ATRAUMATIC, NORMAL INSPECTION, NORMOCEPHALIC - Eye Exam Eye Exam: EOMI, Normal appearance - ENT Exam ENT Exam: Mucous Membranes Moist - Neck Exam Neck Exam: Full ROM - Respiratory Exam Respiratory Exam: Decreased Breath Sounds, Rales, NORMAL BREATHING PATTERN. absent: Rhonchi, Wheezes, Respiratory Distress, Stridor - Cardiovascular Exam Cardiovascular Exam: REGULAR RHYTHM, +S1, +S2 - GI/Abdominal Exam GI & Abdominal Exam: Soft, Normal Bowel Sounds. absent: Firm, Guarding, Tenderness - Extremities Exam Extremities Exam: Pedal Edema, Tenderness Additional comments: Right: 2cm healing ulcer on posterior aspect of right leg, dressed with island dressing and xeroform - Neurological Exam Neurological Exam: Alert, Awake, Oriented x3 - Psychiatric Exam Psychiatric exam: Anxious, Normal Affect - Skin Skin Exam: Normal Color, Warm Assessment and Plan - Assessment and Plan (Free Text) Assessment: Acute on Chronic CHF exacerbation -Stable, afebrile -BNP 4500 -Cardiac Catheterization 03/2016 showed EF 25-30% -CXR: pulmonary venous congestion vs vascular crowding due to hypoinflation. Borderline cardiomyopathy -Continue Carvedilol 3.125 mg PO fawn -Continue Cozaar 25mg PO daily -Cardiology on consult, Dr Bautista, help appreciated -Lasix 40mg IVP Qam, Lasix 20mg IVP Qpm -Daily weights, Strict I/Os -Supplemental O2 prn -HOB elevated 45 degrees -f/u Echo Bilateral Lower Extremity Pain, Idiopathic Peripheral neuropathy -Lower extremity dopplers negative for DVT -Pain contol Ultram 25mg Q8H prn pain -Gabapentin 200mg TID (Home dose lowered due to CKD) -PT/OT evaluation Abdominal Pain -Cipro changed to 500mg po BID as patient was having pain from IV cipro -Protonix 40mg PO daily -CT abd/pelvis 05/2017 showed diverticulosis, no evidence of diverticulitis, hepatic cirrhosis Severe Coronary Artery Disease s/p stent placement -Last stent was placed in [address] Kaur at [place] -Last Cardiac Cath in 2015; 95% proximal LAD and 90% proximal LCX occlusions. EF 25-30%. Elevated pulm artery pressure. -Troponin 0.0380 -Continue ASA 81mg -Continue Plavix 75mg -Continue Crestor 20mg PO HS -Cardiology on consult, Dr Bautista, help appreciated Ischemic Cardiomyopathy, Severe Pulmonary HTN -Continue ASA/Plavix -Cardiology on consult Anemia -Hgb 8.8 today -Baseline Hgb 9-10 -Patient was supposed to follow up with Heme/onc for outpatient workup -No active signs of bleeding at this time, will continue to monitor -f/u Iron, TIBC, Ferritin, Folate, B12 Hypokalemia -Potassium 3.3 -Replete, continue to monitor Right Lower Extremity Healing Wound -Wound care consulted, help appreciated -Podiatry consulted, help appreciated Chronic Kidney Disease -BUN/Creatinine 34/1.6 -Appears at baseline -Avoid nephrotoxic medications, renally dose all medications -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 Garcia consulted, help appreciated Hx of Hypertension -Continue Carvedilol 3.125mg PO daily -Cozaar 25mg PO daily Hx of Hypothyroidism -Continue Levothyroxine 100mcg daily Hx of Hyperlipidemia -Crestor 20mg PO HS -lipid panel: triglycerides: 79, cholesterol: 98, LDL: 35, HDL: 29 Prophylactic Measure -Protonix 40mg PO daily -Heparin 5000U Q8H -Heart Healthy Diet, Salt restricted <Alfredo Vargaspedrofredrick - Last Filed: 06/15/17 17:58> Objective - Vital Signs/Intake and Output Vital Signs (last 24 hours): Temp Pulse Resp BP Pulse Ox 99.3 F 61 20 115/72 100 06/14/17 15:13 06/14/17 15:13 06/14/17 15:13 06/14/17 18:21 06/14/17 15:13 Intake and Output: 06/14/17 06/14/17 06:59 18:59 Intake Total 200 400 Balance 200 400 - Medications Medications: Current Medications Aspirin (Aspirin Chewable) 81 mg PO DAILY [facility] Last Admin: 06/14/17 10:52 Dose: 81 mg Carvedilol (Coreg) 3.125 mg PO DAILY [facility] Last Admin: 06/14/17 10:53 Dose: 3.125 mg Ciprofloxacin (Cipro) 500 mg PO BID [facility] Last Admin: 06/14/17 18:22 Dose: 500 mg Clopidogrel Bisulfate (Plavix) 75 mg PO DAILY [facility] Last Admin: 06/14/17 10:54 Dose: 75 mg Furosemide (Lasix) 20 mg IVP QPM [facility] Last Admin: 06/14/17 18:21 Dose: 20 mg Furosemide (Lasix) 40 mg IVP QAM [facility] Last Admin: 06/14/17 11:51 Dose: 40 mg Gabapentin (Neurontin) 200 mg PO TID [facility] Last Admin: 06/14/17 18:21 Dose: 200 mg Heparin Sodium (Porcine) (Heparin) 5,000 units SC Q8 [facility] Last Admin: 06/14/17 14:54 Dose: 5,000 units Levothyroxine Sodium (Synthroid) 100 mcg PO DAILY@0630 [facility] Last Admin: 06/14/17 05:51 Dose: 100 mcg Losartan Potassium (Cozaar) 25 mg PO DAILY [facility] Last Admin: 06/14/17 10:53 Dose: 25 mg Mupirocin (Bactroban Ointment) 0 gm TOP BID [facility] Last Admin: 06/14/17 11:50 Dose: Not Given Pantoprazole Sodium (Protonix Ec Tab) 40 mg PO DAILY [facility] Last Admin: 06/14/17 10:53 Dose: 40 mg Rosuvastatin Calcium (Crestor) 20 mg PO HS [facility] Last Admin: 06/13/17 21:40 Dose: 20 mg Tramadol HCl (Ultram) 25 mg PO TID PRN PRN Reason: Pain, moderate (4-7) Last Admin: 06/14/17 10:52 Dose: 25 mg Zolpidem Tartrate (Ambien) 5 mg PO HS PRN PRN Reason: Insomnia Stop: 06/15/17 02:00 - Labs Labs: 06/14/17 06:41 06/14/17 06:41 PT 14.3 SECONDS (9.7-12.2) H 06/13/17 12:53 INR 1.2 06/13/17 12:53 APTT 28 SECONDS (21-34) 06/13/17 12:53 Attending/Attestation - Attestation I have personally seen and examined this patient.: Yes I have fully participated in the care of the patient.: Yes I have reviewed all pertinent clinical information, including history, physical exam and plan: Yes Notes (Text): Patient was seen and examined She is anxious about her Echo c/o leg pain and unable to ambulate due to her wound.She has dyspnea on exertion. 1.Acute on chronic systolic heart failure CAD and s/p Stent,cardiomyopathy , pulmonary hypertension continue lasix 40mg IV in am,20mg qpm continue cozaar,carvedilol,asprin and plavix follow echo report monitor creatinine Dr Bautista consult appreciated 2.Leg pain-Idiopathic peripheral neuropathy gabapentin and ultram PT and ot Rehab 3.leg wound is on cipro 4.Anemia Low Iron,has chronic kidney disease also we will follow nephrology recommendation to give epogen start on oral iron 5.Chronic kidney disease continue current meds including lasix and follow creatinine follow renal consult 6.HYpertension 7.Hypothyroidism 8.Hyperlipidemia 9. cnontiue prophylactic -Protonix 40mg PO daily Heparin 5000U Q8H 10.Heart Healthy Diet, Salt restricted
--- NOTE | 2017-06-14 13:02 | CP.PCM.CON ---
<Rozina Taylor - Last Filed: 06/14/17 12:57> History of Present Illness - History of Present Illness History of Present Illness: Podiatry note for Dr. Andrade 77 year old female patient with PMHx of CHF, ME, HTN, HLD, CKD, CAD s/p 4 stents was seen at bedside this morning with attending Dr. Andrade concerning ulceration to right leg. Patient states that she had the wound for for than a week and her daughter at home was treating it with saline. She denies of any trauma to the area, and does not recall how it started. She complains of severe pain to right foot more than right leg where the ulceration is. Patient states that she noticed pain only a few days ago from today. Patient denies of any N/V/ F/C or SOB today Review of Systems - Constitutional Constitutional: As Per HPI Past Patient History - Infectious Disease Hx of Infectious Diseases: None - Past Medical History & Family History Past Medical History?: Yes - Past Social History Smoking Status: Never Smoked - CARDIAC Hx Cardiac Disorders: Yes Hx Congestive Heart Failure: Yes (Hx) Hx Hypercholesterolemia: Yes Hx Hypertension: Yes - PULMONARY Hx Respiratory Disorders: No Hx Emphysema: No Hx Sleep Apnea: No - NEUROLOGICAL Hx Neurological Disorder: No Hx Seizures: No Hx Transient Ischemic Attacks (TIA): No - HEENT Hx HEENT Problems: Yes Hx Cataracts: Yes - RENAL Hx Chronic Kidney Disease: No - ENDOCRINE/METABOLIC Hx Endocrine Disorders: Yes Hx Hypothyroidism: Yes - HEMATOLOGICAL/ONCOLOGICAL Hx Blood Disorders: Yes Hx Anemia: Yes - INTEGUMENTARY Hx Dermatological Problems: Yes Other/Comment: rash right groin - MUSCULOSKELETAL/RHEUMATOLOGICAL Hx Arthritis: Yes Hx Falls: No Hx Fractures: Yes (right ankle) - GASTROINTESTINAL Hx Gall Bladder Disease: Yes - GENITOURINARY/GYNECOLOGICAL Hx Sexually Transmitted Disorders: No - PSYCHIATRIC Hx Anxiety: Yes Hx Depression: Yes Hx Substance Use: No - SURGICAL HISTORY Hx Cholecystectomy: Yes Hx Coronary Stent: Yes (x2) - ANESTHESIA Hx Anesthesia: Yes Hx Anesthesia Reactions: No Meds Allergies/Adverse Reactions: Allergies Allergy/AdvReac Type Severity Reaction Status Date / Time erythromycin base Allergy RASH Verified 03/27/17 12:34 Iodinated Contrast- Oral and Allergy SHORTNESS Verified 03/29/16 07:16 IV Dye OF BREATH [Iodinated Contrast Media - IV Dye] Penicillins Allergy RASH Verified 03/29/16 07:16 Sulfa (Sulfonamide Allergy RASH Verified 03/29/16 07:16 Antibiotics) ivp dye Allergy RASH Uncoded 03/27/17 12:34 tape Allergy RASH Uncoded 03/27/17 12:34 - Medications Medications: Current Medications Aspirin (Aspirin Chewable) 81 mg PO DAILY [facility] Last Admin: 06/14/17 10:52 Dose: 81 mg Carvedilol (Coreg) 3.125 mg PO DAILY [facility] Last Admin: 06/14/17 10:53 Dose: 3.125 mg Ciprofloxacin (Cipro) 500 mg PO BID [facility] Clopidogrel Bisulfate (Plavix) 75 mg PO DAILY [facility] Last Admin: 06/14/17 10:54 Dose: 75 mg Furosemide (Lasix) 20 mg IVP QPM [facility] Furosemide (Lasix) 40 mg IVP QAM [facility] Last Admin: 06/14/17 11:51 Dose: 40 mg Gabapentin (Neurontin) 200 mg PO TID [facility] Last Admin: 06/14/17 10:53 Dose: 200 mg Heparin Sodium (Porcine) (Heparin) 5,000 units SC Q8 [facility] Last Admin: 06/14/17 05:50 Dose: 5,000 units Levothyroxine Sodium (Synthroid) 100 mcg PO DAILY@0630 [facility] Last Admin: 06/14/17 05:51 Dose: 100 mcg Losartan Potassium (Cozaar) 25 mg PO DAILY [facility] Last Admin: 06/14/17 10:53 Dose: 25 mg Mupirocin (Bactroban Ointment) 0 gm TOP BID [facility] Last Admin: 06/14/17 11:50 Dose: Not Given Pantoprazole Sodium (Protonix Ec Tab) 40 mg PO DAILY [facility] Last Admin: 06/14/17 10:53 Dose: 40 mg Rosuvastatin Calcium (Crestor) 20 mg PO HS [facility] Last Admin: 06/13/17 21:40 Dose: 20 mg Tramadol HCl (Ultram) 25 mg PO TID PRN PRN Reason: Pain, moderate (4-7) Last Admin: 06/14/17 10:52 Dose: 25 mg Zolpidem Tartrate (Ambien) 5 mg PO HS PRN PRN Reason: Insomnia Stop: 06/15/17 02:00 Physical Exam - Constitutional Appears: Well, Non-toxic, No Acute Distress - Head Exam Head Exam: ATRAUMATIC - Extremities Exam Additional comments: Right lower extremity exam DERM: Open wound noted to posterior aspect of right mid leg measuring 3cm x 1cm x 0.3cm with fibrotic base. Mild drainage is noted. No malodor noted. nu erythema noted around the wound. No probe to bone noted. VASC: +2 lower extremity edema bilaterally. Palpable DP and PT noted b/l 2/4 manager of hospital <3 sec to all digits ORTHO: Pain on palpation to right lower extremity from distal to knee NEURO: Dross sensation intact to bilateral feet - Neurological Exam Neurological exam: Alert, Oriented x3 - Psychiatric Exam Psychiatric exam: Normal Affect, Normal Mood - Skin Skin Exam: Normal Color, Warm Results - Vital Signs Recent Vital Signs: Last Vital Signs Temp 98.0 F 06/14/17 07:20 Pulse 60 06/14/17 11:49 Resp 20 06/14/17 07:20 BP 110/67 06/14/17 11:51 Pulse Ox 98 06/14/17 07:20 - Labs Result Diagrams: 06/14/17 06:41 06/14/17 06:41 Labs: Laboratory Results - last 24 hr 06/13/17 06/13/17 06/13/17 12:49 12:53 12:53 WBC 7.0 RBC 2.92 L Hgb 8.8 L Hct 26.5 L MCV 91.0 MCH 30.2 MCHC 33.2 RDW 16.3 H Plt Count 161 MPV 7.2 Neut % (Auto) 83.6 H Lymph % (Auto) 9.3 L [place] % (Auto) 6.3 Eos % (Auto) 0.5 Baso % (Auto) 0.3 Neut # 5.8 Lymph # 0.6 L [place] # 0.4 Eos # 0.0 Baso # 0.0 Neutrophils % (Manual) 82 H Band Neutrophils % 1 Lymphocytes % (Manual) 10 L Monocytes % (Manual) 7 Platelet Estimate Normal Hypochromasia (manual) Slight Poikilocytosis (manual Slight Anisocytosis (manual) Slight Target Cells Slight PT 14.3 H INR 1.2 APTT 28 Sodium Potassium Chloride Carbon Dioxide Anion Gap BUN Creatinine Est GFR ( Amer) Est GFR (Non-Af Amer) Random Glucose Hemoglobin A1c Calcium Phosphorus Magnesium Total Bilirubin AST ALT Alkaline Phosphatase Troponin I NT-Pro-B Natriuret Pep Total Protein Albumin Globulin Albumin/Globulin Ratio Triglycerides Cholesterol LDL Cholesterol Direct HDL Cholesterol Lipase Free T4 TSH 3rd Generation Urine Color Yellow Urine Clarity Clear Urine pH 5.0 Ur Specific [place] 1.014 Urine Protein Negative Urine Glucose (UA) Normal Urine Ketones Negative Urine Blood Negative Urine Nitrate Negative Urine Bilirubin Negative Urine Urobilinogen Normal Ur Leukocyte Esterase Neg Urine WBC (Auto) 6 H Urine RBC (Auto) 3 Ur Squamous Epith Cells < 1 Urine Bacteria Occ H Hyaline Casts >20 H 06/13/17 06/14/17 06/14/17 12:53 06:41 06:41 WBC 6.3 RBC 2.78 L Hgb 8.6 L Hct 25.2 L MCV 90.4 MCH 30.7 MCHC 34.0 RDW 16.0 H Plt Count 161 MPV 7.5 Neut % (Auto) 78.8 H Lymph % (Auto) 12.9 L [place] % (Auto) 6.9 Eos % (Auto) 1.0 Baso % (Auto) 0.4 Neut # 5.0 Lymph # 0.8 L [place] # 0.4 Eos # 0.1 Baso # 0.0 Neutrophils % (Manual) Band Neutrophils % Lymphocytes % (Manual) Monocytes % (Manual) Platelet Estimate Hypochromasia (manual) Poikilocytosis (manual Anisocytosis (manual) Target Cells PT INR APTT Sodium 138 138 Potassium 3.2 L 3.3 L Chloride 102 104 Carbon Dioxide 30 27 Anion Gap 10 10 BUN 36 H 34 H Creatinine 1.8 H 1.6 H Est GFR ( Amer) 33 38 Est GFR (Non-Af Amer) 27 31 Random Glucose 136 H 138 H Hemoglobin A1c Calcium 8.0 L 7.9 L Phosphorus 3.1 Magnesium 1.8 Total Bilirubin 0.4 0.3 AST 33 35 ALT 21 24 Alkaline Phosphatase 63 59 Troponin I 0.0380 NT-Pro-B Natriuret Pep 4500 H Total Protein 6.4 6.1 L Albumin 3.0 L 2.9 L Globulin 3.4 3.2 Albumin/Globulin Ratio 0.9 L 0.9 L Triglycerides 79 Cholesterol 98 LDL Cholesterol Direct 35 HDL Cholesterol 29 L Lipase 215 Free T4 TSH 3rd Generation 4.08 Urine Color Urine Clarity Urine pH Ur Specific [place] Urine Protein Urine Glucose (UA) Urine Ketones Urine Blood Urine Nitrate Urine Bilirubin Urine Urobilinogen Ur Leukocyte Esterase Urine WBC (Auto) Urine RBC (Auto) Ur Squamous Epith Cells Urine Bacteria Hyaline Casts 06/14/17 06/14/17 06:41 06:41 WBC RBC Hgb Hct MCV MCH MCHC RDW Plt Count MPV Neut % (Auto) Lymph % (Auto) [place] % (Auto) Eos % (Auto) Baso % (Auto) Neut # Lymph # [place] # Eos # Baso # Neutrophils % (Manual) Band Neutrophils % Lymphocytes % (Manual) Monocytes % (Manual) Platelet Estimate Hypochromasia (manual) Poikilocytosis (manual Anisocytosis (manual) Target Cells PT INR APTT Sodium Potassium Chloride Carbon Dioxide Anion Gap BUN Creatinine Est GFR ( Amer) Est GFR (Non-Af Amer) Random Glucose Hemoglobin A1c 6.1 Calcium Phosphorus Magnesium Total Bilirubin AST ALT Alkaline Phosphatase Troponin I NT-Pro-B Natriuret Pep Total Protein Albumin Globulin Albumin/Globulin Ratio Triglycerides Cholesterol LDL Cholesterol Direct HDL Cholesterol Lipase Free T4 1.12 TSH 3rd Generation Urine Color Urine Clarity Urine pH Ur Specific [place] Urine Protein Urine Glucose (UA) Urine Ketones Urine Blood Urine Nitrate Urine Bilirubin Urine Urobilinogen Ur Leukocyte Esterase Urine WBC (Auto) Urine RBC (Auto) Ur Squamous Epith Cells Urine Bacteria Hyaline Casts Assessment & Plan - Assessment and Plan (Free Text) Assessment: 77 yo female patient presents with open ulceration to right leg posterior aspect Plan: Patient was seen, evaluated discussed in detail with attending Dr. Andrade labs and vitals reviewed; afebrile right lower extremity dressed with Xeroform, DSD Help from woundcare appreciated. Podiatry will continue to follow inhouse <Oneal Andrade - Last Filed: 06/15/17 08:29> Meds - Medications Medications: Current Medications Aspirin (Aspirin Chewable) 81 mg PO DAILY [facility] Last Admin: 06/14/17 10:52 Dose: 81 mg Carvedilol (Coreg) 3.125 mg PO DAILY [facility] Last Admin: 06/14/17 10:53 Dose: 3.125 mg Ciprofloxacin (Cipro) 500 mg PO BID [facility] Last Admin: 06/14/17 18:22 Dose: 500 mg Clopidogrel Bisulfate (Plavix) 75 mg PO DAILY [facility] Last Admin: 06/14/17 10:54 Dose: 75 mg Furosemide (Lasix) 20 mg IVP QPM [facility] Last Admin: 06/14/17 18:21 Dose: 20 mg Furosemide (Lasix) 40 mg IVP QAM [facility] Last Admin: 06/14/17 11:51 Dose: 40 mg Gabapentin (Neurontin) 200 mg PO TID [facility] Last Admin: 06/14/17 18:21 Dose: 200 mg Heparin Sodium (Porcine) (Heparin) 5,000 units SC Q8 [facility] Last Admin: 06/15/17 05:39 Dose: 5,000 units Levothyroxine Sodium (Synthroid) 100 mcg PO DAILY@0630 [facility] Last Admin: 06/15/17 05:36 Dose: 100 mcg Losartan Potassium (Cozaar) 25 mg PO DAILY [facility] Last Admin: 06/14/17 10:53 Dose: 25 mg Mupirocin (Bactroban Ointment) 0 gm TOP BID [facility] Last Admin: 06/14/17 18:25 Dose: 1 applic Pantoprazole Sodium (Protonix Ec Tab) 40 mg PO DAILY [facility] Last Admin: 06/14/17 10:53 Dose: 40 mg Rosuvastatin Calcium (Crestor) 20 mg PO HS [facility] Tramadol HCl (Ultram) 25 mg PO TID PRN PRN Reason: Pain, moderate (4-7) Last Admin: 06/14/17 20:01 Dose: 25 mg Results - Vital Signs Recent Vital Signs: Last Vital Signs Temp 98.4 F 06/15/17 07:10 Pulse 65 06/15/17 07:10 Resp 20 06/15/17 07:10 BP 106/58 L 06/15/17 07:10 Pulse Ox 97 06/15/17 07:10 - Labs Result Diagrams: 06/15/17 07:23 06/14/17 06:41 Labs: Laboratory Results - last 24 hr 06/14/17 06/15/17 06:41 07:23 WBC 6.0 RBC 2.74 L Hgb 8.4 L Hct 24.7 L MCV 90.2 MCH 30.9 MCHC 34.2 RDW 15.8 H Plt Count 173 MPV 7.7 Neut % (Auto) 73.3 Lymph % (Auto) 15.8 L [place] % (Auto) 9.7 Eos % (Auto) 0.8 Baso % (Auto) 0.4 Neut # 4.4 Lymph # 0.9 L [place] # 0.6 Eos # 0.0 Baso # 0.0 Hemoglobin A1c 6.1 Attending/Attestation - Attestation I have personally seen and examined this patient.: Yes I have fully participated in the care of the patient.: Yes I have reviewed all pertinent clinical information: Yes Notes (Text): 06/15/17 08:28 Pt seen at bedside with resident. Will treat with local wound care. Pt may need Unna boot dressing as outpatient.
--- NOTE | 2017-06-14 14:14 | US ---
PROCEDURE: Ultrasound of the Kidneys HISTORY: CKD COMPARISON: CT abdomen pelvis without contrast performed 06/07/17 TECHNIQUE: Sonogram of the kidneys. FINDINGS: Examination limited by habitus. RIGHT KIDNEY: Measures: 12.2 x 5.5 x 6.1 cm. 7.7 x 7.0 x 7.3 cm upper pole renal cyst. No hydronephrosis or obstructing calculus. LEFT KIDNEY: Measures: 10.1 x 4.8 x 6.3 cm. No hydronephrosis or obstructing calculus. OTHER FINDINGS: None. IMPRESSION: Markedly limited examination. 7.7 x 7.0 x 7.3 cm right upper pole renal cyst.
--- NOTE | 2017-06-14 14:43 | CARD ---
APPROVED REPORT EKG Measurement Heart [id number] <Conclusion> Sinus rhythm with 1st degree AV block Left axis deviation Septal infarct, age undetermined Possible Lateral infarct, age undetermined Abnormal ECG
--- NOTE | 2017-06-14 22:05 | CP.PCM.PN ---
Subjective - Date & Time of Evaluation Date of Evaluation: 06/14/17 Time of Evaluation: 08:05 - Subjective Subjective: Patient seen and evaluated Denies chest pain and dyspnea Chronic systolic CHF CAD s/p multi vessel PCI Objective - Vital Signs/Intake and Output Vital Signs (last 24 hours): Temp Pulse Resp BP Pulse Ox 99.3 F 61 20 115/72 100 06/14/17 15:13 06/14/17 16:00 06/14/17 15:13 06/14/17 18:21 06/14/17 15:13 Intake and Output: 06/14/17 06/15/17 18:59 06:59 Intake Total 400 Balance 400 - Medications Medications: Current Medications Aspirin (Aspirin Chewable) 81 mg PO DAILY [facility] Last Admin: 06/14/17 10:52 Dose: 81 mg Carvedilol (Coreg) 3.125 mg PO DAILY [facility] Last Admin: 06/14/17 10:53 Dose: 3.125 mg Ciprofloxacin (Cipro) 500 mg PO BID [facility] Last Admin: 06/14/17 18:22 Dose: 500 mg Clopidogrel Bisulfate (Plavix) 75 mg PO DAILY [facility] Last Admin: 06/14/17 10:54 Dose: 75 mg Furosemide (Lasix) 20 mg IVP QPM [facility] Last Admin: 06/14/17 18:21 Dose: 20 mg Furosemide (Lasix) 40 mg IVP QAM [facility] Last Admin: 06/14/17 11:51 Dose: 40 mg Gabapentin (Neurontin) 200 mg PO TID [facility] Last Admin: 06/14/17 18:21 Dose: 200 mg Heparin Sodium (Porcine) (Heparin) 5,000 units SC Q8 [facility] Last Admin: 06/14/17 14:54 Dose: 5,000 units Levothyroxine Sodium (Synthroid) 100 mcg PO DAILY@0630 [facility] Last Admin: 06/14/17 05:51 Dose: 100 mcg Losartan Potassium (Cozaar) 25 mg PO DAILY [facility] Last Admin: 06/14/17 10:53 Dose: 25 mg Mupirocin (Bactroban Ointment) 0 gm TOP BID [facility] Last Admin: 06/14/17 18:25 Dose: 1 applic Pantoprazole Sodium (Protonix Ec Tab) 40 mg PO DAILY [facility] Last Admin: 06/14/17 10:53 Dose: 40 mg Rosuvastatin Calcium (Crestor) 20 mg PO HS [facility] Last Admin: 06/13/17 21:40 Dose: 20 mg Tramadol HCl (Ultram) 25 mg PO TID PRN PRN Reason: Pain, moderate (4-7) Last Admin: 06/14/17 20:01 Dose: 25 mg Zolpidem Tartrate (Ambien) 5 mg PO HS PRN PRN Reason: Insomnia Stop: 06/15/17 02:00 - Labs Labs: 06/14/17 06:41 06/14/17 06:41 PT 14.3 SECONDS (9.7-12.2) H 06/13/17 12:53 INR 1.2 06/13/17 12:53 APTT 28 SECONDS (21-34) 06/13/17 12:53
[2017-06-15] MEDS: Levothyroxine 100 MCG TAB PO SCH (05:36)
[2017-06-15 07:37] LABS: BASO % 0.4 % (0.0-2.0); EOS % 0.8 % (0.0-4.0); HEMOGLOBIN 8.4 g/dL (11.0-16.0); LYMPH # 0.9 K/uL (1.0-4.3); LYMPH % 15.8 % (20.0-40.0); MEAN CELL VOLUME 90.2 fL (81.0-99.0); MEAN CORPUSCULAR HEMOGLOBIN 30.9 pg (27.0-31.0); MEAN CORPUSCULAR HGB CONC 34.2 g/dL (33.0-37.0); MEAN PLATELET VOLUME 7.7 fL (7.2-11.7); MONO # 0.6 K/uL (0.0-0.8); MONO % 9.7 % (0.0-10.0); NEUT # 4.4 K/uL (1.8-7.0); NEUT % 73.3 % (50.0-75.0); RBC 2.74 Mil/uL (3.80-5.20); RED CELL DISTRIBUTION WIDTH 15.8 % (11.5-14.5)
[2017-06-15] MEDS: Tramadol 25 mg PO PRN ×2 (08:42→21:45)
[2017-06-15 08:45] LABS: IRON < 10 ug/dL (37-170)
[2017-06-15 08:51] LABS: % IRON SATURATION 4.5 (20-55); ALB/GLOB RATIO 0.9 (1.0-2.1); ALBUMIN 2.9 g/dL (3.5-5.0); ALT/SGPT 28 U/L (9-52); AST/SGOT 44 U/L (14-36); BLOOD UREA NITROGEN 29 mg/dL (7-17); CALCIUM 7.8 mg/dl (8.6-10.4); GFR AFRICAN-AMERICAN 41; GFR NON-AFRICAN AMERICAN 34; MAGNESIUM 1.8 mg/dL (1.6-2.3); TOTAL IRON BINDING CAPACITY 223 ug/dL (250-450)
[2017-06-15 09:36] LABS: FOLATE > 20.0 ng/mL
[2017-06-15] MEDS ORDERED: Perflutren Lipid Microsphere 1.5 ML SUS IV ONE (10:10)
[2017-06-15] MEDS: Pantoprazole 40 mg EC Tab PO SCH (11:11)
--- NOTE | 2017-06-15 13:59 | CP.PCM.PN ---
<Rozina Taylor - Last Filed: 06/15/17 13:56> Subjective - Date & Time of Evaluation Date of Evaluation: 06/15/17 Time of Evaluation: 11:56 - Subjective Subjective: Podiatry note for Dr. Andrade 77 year old female patient was seen at bedside this morning with attending Dr. Andrade concerning ulceration to right leg. Patient was resting comfortably in bed and denies of any over night acute distress. AAOx3, NAD. She complains of severe pain to entire right lower extremity distal to knee. Patient denies of any N/V/F/C or SOB today Objective - Vital Signs/Intake and Output Vital Signs (last 24 hours): Temp Pulse Resp BP Pulse Ox 98.4 F 60 20 110/69 98 06/15/17 07:10 06/15/17 12:36 06/15/17 07:10 06/15/17 12:37 06/15/17 12:36 Intake and Output: 06/15/17 06/15/17 06:59 18:59 Intake Total 100 Balance 100 - Medications Medications: Current Medications Aspirin (Aspirin Chewable) 81 mg PO DAILY [facility] Last Admin: 06/15/17 11:10 Dose: 81 mg Carvedilol (Coreg) 3.125 mg PO DAILY [facility] Last Admin: 06/15/17 11:12 Dose: 3.125 mg Ciprofloxacin (Cipro) 500 mg PO BID [facility] Last Admin: 06/15/17 11:12 Dose: 500 mg Clopidogrel Bisulfate (Plavix) 75 mg PO DAILY [facility] Last Admin: 06/15/17 11:11 Dose: 75 mg Ferrous Sulfate (Feosol) 325 mg PO BID [facility] Last Admin: 06/15/17 11:55 Dose: 325 mg Furosemide (Lasix) 20 mg IVP QPM [facility] Last Admin: 06/14/17 18:21 Dose: 20 mg Furosemide (Lasix) 40 mg IVP QAM [facility] Last Admin: 06/15/17 12:37 Dose: 40 mg Gabapentin (Neurontin) 200 mg PO TID [facility] Last Admin: 06/15/17 11:12 Dose: 200 mg Heparin Sodium (Porcine) (Heparin) 5,000 units SC Q8 [facility] Last Admin: 06/15/17 05:39 Dose: 5,000 units Levothyroxine Sodium (Synthroid) 100 mcg PO DAILY@0630 [facility] Last Admin: 06/15/17 05:36 Dose: 100 mcg Losartan Potassium (Cozaar) 25 mg PO DAILY [facility] Last Admin: 06/15/17 11:11 Dose: 25 mg Mupirocin (Bactroban Ointment) 0 gm TOP BID [facility] Last Admin: 06/15/17 11:13 Dose: 1 applic Pantoprazole Sodium (Protonix Ec Tab) 40 mg PO DAILY [facility] Last Admin: 06/15/17 11:11 Dose: 40 mg Rosuvastatin Calcium (Crestor) 10 mg PO [facility] Tramadol HCl (Ultram) 25 mg PO TID PRN PRN Reason: Pain, moderate (4-7) Last Admin: 06/15/17 08:42 Dose: 25 mg - Labs Labs: 06/15/17 07:23 06/15/17 07:23 PT 14.3 SECONDS (9.7-12.2) H 06/13/17 12:53 INR 1.2 06/13/17 12:53 APTT 28 SECONDS (21-34) 06/13/17 12:53 - Constitutional Appears: Well, Non-toxic, No Acute Distress - Head Exam Head Exam: ATRAUMATIC - Extremities Exam Additional comments: Right lower extremity exam DERM: Open wound noted to posterior aspect of right mid leg measuring 3cm x 1cm x 0.3cm with fibrotic base. Mild drainage is noted. No malodor noted. nu erythema noted around the wound. No probe to bone noted. VASC: +2 lower extremity edema bilaterally. 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 Andrade labs and vitals reviewed; afebrile right lower extremity dressed with Xeroform, DSD Help from woundcare appreciated. Podiatry will continue to follow inhouse <Oneal Andrade - Last Filed: 06/18/17 10:08> Objective - Vital Signs/Intake and Output Vital Signs (last 24 hours): Temp Pulse Resp BP Pulse Ox 101.1 F H 81 20 119/76 94 L 06/18/17 08:00 06/18/17 08:00 06/18/17 08:00 06/18/17 09:49 06/18/17 08:00 - Medications Medications: Current Medications Acetaminophen (Tylenol 325mg Tab) 650 mg PO Q6 PRN PRN Reason: Fever >100.4 F Aspirin (Aspirin Chewable) 81 mg PO DAILY [facility] Last Admin: 06/18/17 09:48 Dose: 81 mg Carvedilol (Coreg) 3.125 mg PO DAILY [facility] Last Admin: 06/18/17 09:49 Dose: 3.125 mg Ciprofloxacin (Cipro) 500 mg PO BID [facility] Last Admin: 06/18/17 09:49 Dose: 500 mg Clopidogrel Bisulfate (Plavix) 75 mg PO DAILY [facility] Last Admin: 06/18/17 09:49 Dose: 75 mg Cyclobenzaprine HCl (Flexeril) 5 mg PO TID [facility] Stop: 06/18/17 10:46 Last Admin: 06/18/17 09:48 Dose: 5 mg Docusate Sodium (Colace) 100 mg PO BID [facility] Last Admin: 06/18/17 09:49 Dose: Not Given Furosemide (Lasix) 20 mg IVP QPM [facility] Last Admin: 06/17/17 17:32 Dose: 20 mg Furosemide (Lasix) 40 mg IVP QAM [facility] Last Admin: 06/18/17 09:49 Dose: 40 mg Gabapentin (Neurontin) 200 mg PO TID [facility] Last Admin: 06/18/17 09:48 Dose: 200 mg Levothyroxine Sodium (Synthroid) 100 mcg PO DAILY@0630 [facility] Last Admin: 06/18/17 06:32 Dose: 100 mcg Losartan Potassium (Cozaar) 25 mg PO DAILY [facility] Last Admin: 06/18/17 09:49 Dose: 25 mg Morphine Sulfate (Morphine) 2 mg IVP Q4 PRN PRN Reason: Pain, severe (8-10) Last Admin: 06/16/17 21:42 Dose: 2 mg Mupirocin (Bactroban Ointment) 0 gm TOP BID [facility] Last Admin: 06/17/17 17:41 Dose: Not Given Pantoprazole Sodium (Protonix Ec Tab) 40 mg PO DAILY [facility] Last Admin: 06/18/17 09:49 Dose: 40 mg Rosuvastatin Calcium (Crestor) 10 mg PO HS [facility] Last Admin: 06/17/17 21:25 Dose: 10 mg Tramadol HCl (Ultram) 25 mg PO TID PRN PRN Reason: Pain, moderate (4-7) Last Admin: 06/18/17 08:14 Dose: 25 mg Trolamine Salicylate (Aspercreme) 0 gm TOP TID [facility] Last Admin: 06/18/17 09:50 Dose: 85 gm - Labs Labs: 06/18/17 07:30 06/18/17 07:30 PT 14.3 SECONDS (9.7-12.2) H 06/13/17 12:53 INR 1.2 06/13/17 12:53 APTT 28 SECONDS (21-34) 06/13/17 12:53 Attending/Attestation - Attestation I have personally seen and examined this patient.: Yes I have fully participated in the care of the patient.: Yes I have reviewed all pertinent clinical information, including history, physical exam and plan: Yes
--- NOTE | 2017-06-15 14:42 | CP.PCM.PN ---
<HosseinAme L. - Last Filed: 06/15/17 14:33> Subjective - Date & Time of Evaluation Date of Evaluation: 06/15/17 Time of Evaluation: 07:00 - Subjective Subjective: PGY1- Medicine Note- Dr. Vargas's service Patient seen and examined at bedside and in no acute distress. Patient says her legs are painful to touch and it is hard for her to put any weight on them. Patient says the pain is the same as yesterday and feels like burning/stinging. Patient says she does not want to work with PT today. As per telemtry, patient had 6 beats of vtach at 730. Patient denied any chest pain or palpitations. Patient denies any headache, shortness of breath, abdominal pain, nausea, vomiting, constipation, or diarrhea. Objective - Vital Signs/Intake and Output Vital Signs (last 24 hours): Temp Pulse Resp BP Pulse Ox 98.4 F 60 20 110/69 98 06/15/17 07:10 06/15/17 12:36 06/15/17 07:10 06/15/17 12:37 06/15/17 12:36 Intake and Output: 06/15/17 06/15/17 06:59 18:59 Intake Total 100 Balance 100 - Medications Medications: Current Medications Aspirin (Aspirin Chewable) 81 mg PO DAILY [facility] Last Admin: 06/15/17 11:10 Dose: 81 mg Carvedilol (Coreg) 3.125 mg PO DAILY [facility] Last Admin: 06/15/17 11:12 Dose: 3.125 mg Ciprofloxacin (Cipro) 500 mg PO BID [facility] Last Admin: 06/15/17 11:12 Dose: 500 mg Clopidogrel Bisulfate (Plavix) 75 mg PO DAILY [facility] Last Admin: 06/15/17 11:11 Dose: 75 mg Ferrous Sulfate (Feosol) 325 mg PO BID [facility] Last Admin: 06/15/17 11:55 Dose: 325 mg Furosemide (Lasix) 20 mg IVP QPM [facility] Last Admin: 06/14/17 18:21 Dose: 20 mg Furosemide (Lasix) 40 mg IVP QAM [facility] Last Admin: 06/15/17 12:37 Dose: 40 mg Gabapentin (Neurontin) 200 mg PO TID [facility] Last Admin: 06/15/17 11:12 Dose: 200 mg Heparin Sodium (Porcine) (Heparin) 5,000 units SC Q8 [facility] Last Admin: 06/15/17 05:39 Dose: 5,000 units Levothyroxine Sodium (Synthroid) 100 mcg PO DAILY@0630 [facility] Last Admin: 06/15/17 05:36 Dose: 100 mcg Losartan Potassium (Cozaar) 25 mg PO DAILY [facility] Last Admin: 06/15/17 11:11 Dose: 25 mg Mupirocin (Bactroban Ointment) 0 gm TOP BID [facility] Last Admin: 06/15/17 11:13 Dose: 1 applic Pantoprazole Sodium (Protonix Ec Tab) 40 mg PO DAILY [facility] Last Admin: 06/15/17 11:11 Dose: 40 mg Rosuvastatin Calcium (Crestor) 10 mg PO HS [facility] Tramadol HCl (Ultram) 25 mg PO TID PRN PRN Reason: Pain, moderate (4-7) Last Admin: 06/15/17 08:42 Dose: 25 mg - Labs Labs: 06/15/17 07:23 06/15/17 07:23 PT 14.3 SECONDS (9.7-12.2) H 06/13/17 12:53 INR 1.2 06/13/17 12:53 APTT 28 SECONDS (21-34) 06/13/17 12:53 - Constitutional Appears: Non-toxic, No Acute Distress, Other (morbidly obese) - Head Exam Head Exam: ATRAUMATIC, NORMAL INSPECTION, NORMOCEPHALIC - Eye Exam Eye Exam: EOMI, Normal appearance - ENT Exam ENT Exam: Mucous Membranes Moist - Respiratory Exam Respiratory Exam: Decreased Breath Sounds, NORMAL BREATHING PATTERN - Cardiovascular Exam Cardiovascular Exam: REGULAR RHYTHM, +S1, +S2 - GI/Abdominal Exam GI & Abdominal Exam: Soft, Normal Bowel Sounds. absent: Tenderness - Extremities Exam Extremities Exam: Pedal Edema Additional comments: trace pedal edema Right: 2cm healing ulcer on posterior aspect of right leg, dressed with island dressing and xeroform - Neurological Exam Neurological Exam: Alert, Awake, Oriented x3 - Psychiatric Exam Psychiatric exam: Agitated, Normal Affect - Skin Skin Exam: Intact, Normal Color, Warm Assessment and Plan - Assessment and Plan (Free Text) Assessment: Acute on Chronic CHF exacerbation -Stable, afebrile -BNP 4500 -Cardiac Catheterization 03/2016 showed EF 25-30% -CXR: pulmonary venous congestion vs vascular crowding due to hypo-inflation. Borderline cardiomyopathy -Continue Carvedilol 3.125 mg PO daily -Continue Cozaar 25mg PO daily -Cardiology on consult, Dr Bautista, help appreciated -Lasix 40mg IVP Qam, Lasix 20mg IVP Qpm -Daily weights, Strict I/Os -Supplemental O2 prn -HOB elevated 45 degrees -f/u Echo Bilateral Lower Extremity Pain, Idiopathic Peripheral neuropathy -Lower extremity dopplers negative for DVT -Pain contol Ultram 25mg Q8H prn pain -Gabapentin 200mg TID (Home dose lowered due to CKD) -PT/OT Abdominal Pain -Cipro changed to 500mg po BID as patient was having pain from IV cipro -Protonix 40mg PO daily -CT abd/pelvis 05/2017 showed diverticulosis, no evidence of diverticulitis, hepatic cirrhosis Severe Coronary Artery Disease s/p stent placement -Last stent was placed in [address] Kaur at [facility] -Last Cardiac Cath in 2015; 95% proximal LAD and 90% proximal LCX occlusions. EF 25-30%. Elevated pulm artery pressure. -Troponin 0.0380 -Continue ASA 81mg -Continue Plavix 75mg -Continue Crestor 20mg PO HS -Cardiology on consult, Dr Bautista, help appreciated Ischemic Cardiomyopathy, Severe Pulmonary HTN -Continue ASA/Plavix -Cardiology on consult Anemia -Hgb 8.4 today -Baseline Hgb 9-10 -Patient was supposed to follow up with Heme/onc for outpatient workup -No active signs of bleeding at this time, will continue to monitor -Iron<10, TIBC: 223, %Sat 4.5, B12: 612, Folate >20 -Feosol 325mg po BID Hypokalemia, resolved -Potassium 3.7 -Replete, continue to monitor Right Lower Extremity Healing Wound -Wound care consulted, help appreciated -Podiatry consulted, help appreciated Chronic Kidney Disease -BUN/Creatinine 29/1.5 -Appears at baseline -Avoid nephrotoxic medications, renally dose all medications -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 Garcia consulted, help appreciated Hx of Hypertension -Continue Carvedilol 3.125mg PO daily -Cozaar 25mg PO daily Hx of Hypothyroidism -Continue Levothyroxine 100mcg daily Hx of Hyperlipidemia -Crestor decreased to 10mg PO HS for renal dosing -lipid panel: triglycerides: 79, cholesterol: 98, LDL: 35, HDL: 29 Prophylactic Measure -Protonix 40mg PO daily -Heparin 5000U Q8H -Heart Healthy Diet, Salt restricted <AliciaAlfredokarelkyle - Last Filed: 06/15/17 17:59> Objective - Vital Signs/Intake and Output Vital Signs (last 24 hours): Temp Pulse Resp BP Pulse Ox 98.9 F 86 18 126/77 96 06/15/17 15:25 06/15/17 15:25 06/15/17 15:25 06/15/17 15:25 06/15/17 15:25 Intake and Output: 06/15/17 06/15/17 06:59 18:59 Intake Total 100 400 Balance 100 400 - Medications Medications: Current Medications Aspirin (Aspirin Chewable) 81 mg PO DAILY [facility] Last Admin: 06/15/17 11:10 Dose: 81 mg Carvedilol (Coreg) 3.125 mg PO DAILY [facility] Last Admin: 06/15/17 11:12 Dose: 3.125 mg Ciprofloxacin (Cipro) 500 mg PO BID [facility] Last Admin: 06/15/17 11:12 Dose: 500 mg Clopidogrel Bisulfate (Plavix) 75 mg PO DAILY [facility] Last Admin: 06/15/17 11:11 Dose: 75 mg Ferrous Sulfate (Feosol) 325 mg PO BID [facility] Last Admin: 06/15/17 11:55 Dose: 325 mg Furosemide (Lasix) 20 mg IVP QPM [facility] Last Admin: 06/14/17 18:21 Dose: 20 mg Furosemide (Lasix) 40 mg IVP QAM [facility] Last Admin: 06/15/17 12:37 Dose: 40 mg Gabapentin (Neurontin) 200 mg PO TID [facility] Last Admin: 06/15/17 15:08 Dose: 200 mg Heparin Sodium (Porcine) (Heparin) 5,000 units SC Q8 [facility] Last Admin: 06/15/17 14:30 Dose: Not Given Levothyroxine Sodium (Synthroid) 100 mcg PO DAILY@0630 [facility] Last Admin: 06/15/17 05:36 Dose: 100 mcg Losartan Potassium (Cozaar) 25 mg PO DAILY [facility] Last Admin: 06/15/17 11:11 Dose: 25 mg Mupirocin (Bactroban Ointment) 0 gm TOP BID [facility] Last Admin: 06/15/17 11:13 Dose: 1 applic Pantoprazole Sodium (Protonix Ec Tab) 40 mg PO DAILY [facility] Last Admin: 06/15/17 11:11 Dose: 40 mg Rosuvastatin Calcium (Crestor) 10 mg PO HS [facility] Tramadol HCl (Ultram) 25 mg PO TID PRN PRN Reason: Pain, moderate (4-7) Last Admin: 06/15/17 08:42 Dose: 25 mg - Labs Labs: 06/15/17 07:23 06/15/17 07:23 PT 14.3 SECONDS (9.7-12.2) H 06/13/17 12:53 INR 1.2 06/13/17 12:53 APTT 28 SECONDS (21-34) 06/13/17 12:53 Attending/Attestation - Attestation I have personally seen and examined this patient.: Yes I have fully participated in the care of the patient.: Yes I have reviewed all pertinent clinical information, including history, physical exam and plan: Yes Notes (Text): 1. Acute on chronic systolic heart failure CAD and s/p Stent,cardiomyopathy , pulmonary hypertension continue lasix 40mg IV in am,20mg qpm continue cozaar,carvedilol,asprin and plavix follow echo report monitor creatinine Dr Bautista consult appreciated 2.Leg pain-Idiopathic peripheral neuropathy gabapentin and ultram PT and ot Rehab 3.leg wound is on cipro 4.Anemia Low Iron,has chronic kidney disease also we will follow nephrology recommendation to give epogen start on oral iron 5.Chronic kidney disease continue current meds including lasix and follow creatinine follow renal consult 6.HYpertension 7.Hypothyroidism 8.Hyperlipidemia 9. cnontiue prophylactic -Protonix 40mg PO daily Heparin 5000U Q8H 10.Heart Healthy Diet, Salt restricted d/w patient's son at bedside
--- NOTE | 2017-06-15 23:20 | CARD ---
APPROVED REPORT EXAM: Two-dimensional and M-mode echocardiogram with Doppler, color Doppler with contrast. Other Information Quality : TDSRhythm : INDICATION Cardiac Disease: CAD Pulmonary Hypertention Congestive Heart Failure 2D DIMENSIONS IVSd0.9 (0.7-1.1cm)Aortic Root (2D)3.1 (2.0-3.7cm) LVDd5.5 (3.9-5.9cm)PWd1.0 (0.7-1.1cm) LVDs3.7 (2.5-4.0cm)FS (%) 31.4 % LVEF (%)35.0 (>50%) M-Mode DIMENSIONS Left Atrium (MM)3.89 (2.5-4.0cm)Aortic Root2.98 (2.2-3.7cm) Aortic Cusp Exc.2.12 (1.5-2.0cm) Mitral Valve MV E [id number]/sMV A Ihyelyri456.9cm/sE/A ratio1.0 TDI E/Lateral E'0.0E/Medial E'0.0 Tricuspid Valve TR Peak [id number]/sTR Peak [id number] LEFT VENTRICLE The left ventricle is normal size. There is normal left ventricular wall thickness. The left ventricular function is moderately reduced. The mid/apical-septal, apical, anteroseptal, apical-lateral and inferoapical lantigua are akinetic. The left ventricular ejection fraction is about 35%. No regional wall motion abnormalities noted. Transmitral Doppler flow pattern is Grade I-abnormal relaxation pattern. No left ventricle thrombus noted on this study. There is no ventricular septal defect visualized. There is no left ventricular aneurysm. There is no mass noted in the left ventricle. RIGHT VENTRICLE The right ventricle is normal size. There is normal right ventricular wall thickness. The right ventricular systolic function is normal. ATRIA The left atrium size is normal. The right atrium size is normal. The interatrial septum is intact with no evidence for an atrial septal defect. AORTIC VALVE The aortic valve is normal in structure and function. No aortic regurgitation is present. There is no aortic valvular stenosis. There is no aortic valvular vegetation. MITRAL VALVE The mitral valve is normal in structure and function. There is no evidence of mitral valve prolapse. There is no mitral valve stenosis. There is no mitral valve regurgitation noted. TRICUSPID VALVE The tricuspid valve is normal in structure and function. There is mild tricuspid valve regurgitation noted. There is no tricuspid valve prolapse or vegetation. There is no tricuspid valve stenosis. PULMONIC VALVE The pulmonary valve is normal in structure and function. There is no pulmonic valvular regurgitation. There is no pulmonic valvular stenosis. GREAT VESSELS The aortic root is normal in size. The ascending aorta is normal in size. The pulmonary artery is normal. The IVC is dilated and collapses >50% with inspiration. PERICARDIAL EFFUSION The pericardium appears normal. There is no pleural effusion. <Conclusion> Ischemic cardiomyopathy with moderately reduced LV EF Normal Doppler.
[2017-06-16] MEDS: Levothyroxine 100 MCG TAB PO SCH (06:32)
[2017-06-16] MEDS: Tramadol 25 mg PO PRN ×2 (06:35→15:15)
[2017-06-16 08:00] LABS: BASO % 0.6 % (0.0-2.0); EOS % 0.7 % (0.0-4.0); HEMOGLOBIN 8.9 g/dL (11.0-16.0); LYMPH # 0.9 K/uL (1.0-4.3); LYMPH % 12.9 % (20.0-40.0); MEAN CELL VOLUME 90.1 fL (81.0-99.0); MEAN CORPUSCULAR HEMOGLOBIN 30.7 pg (27.0-31.0); MEAN CORPUSCULAR HGB CONC 34.1 g/dL (33.0-37.0); MEAN PLATELET VOLUME 7.8 fL (7.2-11.7); MONO # 0.6 K/uL (0.0-0.8); MONO % 9.1 % (0.0-10.0); NEUT # 5.2 K/uL (1.8-7.0); NEUT % 76.7 % (50.0-75.0); RBC 2.9 Mil/uL (3.80-5.20); RED CELL DISTRIBUTION WIDTH 15.4 % (11.5-14.5); WHITE BLOOD COUNT 6.8 K/uL (4.8-10.8)
[2017-06-16 08:19] LABS: MAGNESIUM 1.8 mg/dL (1.6-2.3)
[2017-06-16 08:21] LABS: ALB/GLOB RATIO 0.9 (1.0-2.1)
[2017-06-16] MEDS ORDERED: Ferric Sodium Gluconat Complex 62.5 mg/5 ml Vial IVPB SCH (10:45)
[2017-06-16] MEDS: Pantoprazole 40 mg EC Tab PO SCH (11:00)
[2017-06-16] MEDS ORDERED: Ferric Sodium Gluconat Complex 125 MG in Sodium Chloride 0.9% 100 ML IVPB ONE (11:00)
--- NOTE | 2017-06-16 11:23 | CP.PCM.CON ---
History of Present Illness - History of Present Illness History of Present Illness: HPI: Patient is a 77 year old female with past medical history of CHF, MN, HTN, HLD, CKD, CAD s/p 4 stents (last stent was placed in 2015) presents to the ED for bilateral lower extremity pain that has progressively getting worse. Patient has also noticed lower extremity swelling. Patient ambulates with a rollator however has not been able to walk due to the pain. Patient took ibuprofen at home with no relief in symptoms. Patient states that she does get short of breath on exertion, however she is currently at her baseline. Patient was recently seen in the ED for abdominal pain. At that time she was discharged on Ciprofloxacin, Motrin and Zantac. Denies fevers, chills, headaches, dizziness , cp, palpitations, urinary symptoms. Admits to feeling constipated, last BM was on Sunday. PMD: Dr Han Cardiology: Dr Maravilla Allergies: Iodinated contrast, PCN, sulfa, erythromycin base Medications: Levothyroxine 100mcg, Losartan 25mg, Lasix 40/20mg QamQpm, Gabapentin 300mg TID, Plavix 75mg, ASA 81mg, Carvedilol 3.125mg, Crestor 20mg Medical Hx: CHF, MN, HTN, HLD, CKD, CAD s/p 4 stents (last stent was placed in 2015 at [place]), Hypothyroidism Surgical Hx: Cholecystectomy, B/L cataract surgery, D+C, Cyst removal from arm Social Hx: former smoker (3ppd x 2-3yrs - quit 42yrs ago); social alcohol use; no recreational drug use Family Hx: Father - cardiac arrest, heart dz, deafness; Brother - brain aneurysm ; Maternal grandfather - cancer Consulted for CKD- pt claims she has had this for long time To receive IV Fe for fe deficiency anemia Review of Systems - Constitutional Constitutional: Fatigue, Weakness - EENT Eyes: absent: As Per HPI, Blind Spots, Blurred Vision, Change in Vision, Decreased Night Vision, Diplopia, Discharge, Dry Eye, Exophthalmos, Floaters, Irritation, Itchy Eyes, Loss of Peripheral Vision, Pain, Photophobia, Requires Corrective Lenses, Sees Flashes, Spots in Vision, Tunnel Vision, Other Visual Disturbances, Loss of Vision, Other Ears: absent: As Per HPI, Decreased Hearing, Ear Discharge, Ear Pain, Tinnitus, Abnormal Hearing, Disequilibrium, Dizziness, Other Nose/Mouth/Throat: absent: As Per HPI, Epistaxis, Nasal Congestion, Nasal Discharge, Nasal Obstruction, Nasal Trauma, Nose Pain, Post Nasal Drip, Sinus Pain, Sinus Pressure, Bleeding Gums, Change in Voice, Dental Pain, Dry Mouth, Dysphagia, Halitosis, Hoarsness, Lip Swelling, Mouth Lesions, Mouth Pain, Odynophagia, Sore Throat, Throat Swelling, Tongue Swelling, Facial Pain, Neck Pain, Neck Mass, Other - Cardiovascular Cardiovascular: Dyspnea on Exertion, Pedal Edema - Respiratory Respiratory: Cough, Pain on Inspiration - Gastrointestinal Gastrointestinal: Early Satiety, Nausea - Genitourinary Genitourinary: Voiding Freq/Small Amts - Musculoskeletal Musculoskeletal: Arthralgias, Muscle Cramps, Muscle Weakness, Stiffness Past Patient History - Infectious Disease Hx of Infectious Diseases: None - Past Medical History & Family History Past Medical History?: Yes Past Family History: Reviewed and not pertinent - Past Social History Smoking Status: Never Smoked Chewing Tobacco Use: No Cigar Use: No Alcohol: None Drugs: Denies - CARDIAC Hx Cardiac Disorders: Yes Hx Congestive Heart Failure: Yes (Hx) Hx Hypercholesterolemia: Yes Hx Hypertension: Yes - PULMONARY Hx Respiratory Disorders: No Hx Emphysema: No Hx Sleep Apnea: No - NEUROLOGICAL Hx Neurological Disorder: No Hx Seizures: No Hx Transient Ischemic Attacks (TIA): No - HEENT Hx HEENT Problems: Yes Hx Cataracts: Yes - RENAL Hx Chronic Kidney Disease: No - ENDOCRINE/METABOLIC Hx Hypothyroidism: Yes - HEMATOLOGICAL/ONCOLOGICAL Hx Blood Disorders: Yes Hx Anemia: Yes - INTEGUMENTARY Hx Dermatological Problems: Yes Other/Comment: rash right groin - MUSCULOSKELETAL/RHEUMATOLOGICAL Hx Arthritis: Yes - GASTROINTESTINAL Hx Gall Bladder Disease: Yes - GENITOURINARY/GYNECOLOGICAL Hx Sexually Transmitted Disorders: No - PSYCHIATRIC Hx Anxiety: Yes Hx Depression: Yes Hx Substance Use: No - SURGICAL HISTORY Hx Cholecystectomy: Yes Hx Coronary Stent: Yes (x2) - ANESTHESIA Hx Anesthesia: Yes Hx Anesthesia Reactions: No Meds Allergies/Adverse Reactions: Allergies Allergy/AdvReac Type Severity Reaction Status Date / Time erythromycin base Allergy RASH Verified 03/27/17 12:34 Iodinated Contrast- Oral and Allergy SHORTNESS Verified 03/29/16 07:16 IV Dye OF BREATH [Iodinated Contrast Media - IV Dye] Penicillins Allergy RASH Verified 03/29/16 07:16 Sulfa (Sulfonamide Allergy RASH Verified 03/29/16 07:16 Antibiotics) ivp dye Allergy RASH Uncoded 03/27/17 12:34 tape Allergy RASH Uncoded 03/27/17 12:34 - Medications Medications: Current Medications Aspirin (Aspirin Chewable) 81 mg PO DAILY [facility] Last Admin: 06/16/17 11:00 Dose: 81 mg Carvedilol (Coreg) 3.125 mg PO DAILY [facility] Last Admin: 06/16/17 11:00 Dose: 3.125 mg Ciprofloxacin (Cipro) 500 mg PO BID [facility] Last Admin: 06/16/17 11:00 Dose: 500 mg Clopidogrel Bisulfate (Plavix) 75 mg PO DAILY [facility] Last Admin: 06/16/17 11:00 Dose: 75 mg Cyclobenzaprine HCl (Flexeril) 5 mg PO TID [facility] Stop: 06/18/17 10:46 Last Admin: 06/16/17 11:13 Dose: 5 mg Docusate Sodium (Colace) 100 mg PO BID [facility] Last Admin: 06/16/17 11:00 Dose: Not Given Furosemide (Lasix) 20 mg IVP QPM [facility] Last Admin: 06/15/17 18:36 Dose: 20 mg Furosemide (Lasix) 40 mg IVP QAM [facility] Last Admin: 06/16/17 11:00 Dose: 40 mg Gabapentin (Neurontin) 200 mg PO TID [facility] Last Admin: 06/16/17 11:00 Dose: 200 mg Heparin Sodium (Porcine) (Heparin) 5,000 units SC Q8 [facility] Last Admin: 06/16/17 06:32 Dose: 5,000 units Ferric Sodium Gluconate Complex 125 mg/ Sodium Chloride 110 mls @ 110 mls/hr IVPB ONCE ONE Stop: 06/16/17 11:59 Levothyroxine Sodium (Synthroid) 100 mcg PO DAILY@0630 [facility] Last Admin: 06/16/17 06:32 Dose: 100 mcg Losartan Potassium (Cozaar) 25 mg PO DAILY [facility] Last Admin: 06/16/17 11:00 Dose: 25 mg Mupirocin (Bactroban Ointment) 0 gm TOP BID [facility] Last Admin: 06/16/17 11:00 Dose: 1 applic Pantoprazole Sodium (Protonix Ec Tab) 40 mg PO DAILY [facility] Last Admin: 06/16/17 11:00 Dose: 40 mg Rosuvastatin Calcium (Crestor) 10 mg PO HS [facility] Last Admin: 06/15/17 21:44 Dose: 10 mg Tramadol HCl (Ultram) 25 mg PO TID PRN PRN Reason: Pain, moderate (4-7) Last Admin: 06/16/17 06:35 Dose: 25 mg Physical Exam - Constitutional Appears: No Acute Distress, Chronically Ill - Head Exam Head Exam: ATRAUMATIC, NORMAL INSPECTION - Eye Exam Eye Exam: EOMI, Normal appearance - Neck Exam Neck exam: Positive for: Normal Inspection, Tenderness - Respiratory Exam Respiratory Exam: Rhonchi, NORMAL BREATHING PATTERN - Cardiovascular Exam Cardiovascular Exam: REGULAR RHYTHM, +S1 - GI/Abdominal Exam GI & Abdominal Exam: Soft. absent: Tenderness - Extremities Exam Extremities exam: Positive for: pedal edema, tenderness - Neurological Exam Neurological exam: Alert, CN II-XII Intact - Skin Skin Exam: Dry, Warm Results - Vital Signs Recent Vital Signs: Last Vital Signs Temp 98.2 F 06/16/17 08:34 Pulse 81 06/16/17 08:34 Resp 20 06/16/17 08:34 BP 103/56 L 06/16/17 11:00 Pulse Ox 95 06/16/17 08:34 - Labs Result Diagrams: 06/16/17 07:51 06/16/17 07:51 Labs: Laboratory Results - last 24 hr 06/16/17 06/16/17 07:51 07:51 WBC 6.8 RBC 2.90 L Hgb 8.9 L Hct 26.1 L MCV 90.1 MCH 30.7 MCHC 34.1 RDW 15.4 H Plt Count 186 MPV 7.8 Neut % (Auto) 76.7 H Lymph % (Auto) 12.9 L Roberts % (Auto) 9.1 Eos % (Auto) 0.7 Baso % (Auto) 0.6 Neut # 5.2 Lymph # 0.9 L Roberts # 0.6 Eos # 0.0 Baso # 0.0 Sodium 134 Potassium 3.8 Chloride 98 Carbon Dioxide 30 Anion Gap 9 L BUN 29 H Creatinine 1.4 H Est GFR ( Amer) 44 Est GFR (Non-Af Amer) 37 Random Glucose 118 H Calcium 8.0 L Phosphorus 3.1 Magnesium 1.8 Total Bilirubin 0.5 AST 44 H ALT 27 Alkaline Phosphatase 67 Total Protein 6.3 Albumin 3.0 L Globulin 3.3 Albumin/Globulin Ratio 0.9 L Assessment & Plan (1) CHF (congestive heart failure) Status: Acute (2) Iron deficiency anemia Status: Acute (3) CAD (coronary artery disease) Status: Acute (4) Cellulitis of right leg Status: Acute - Assessment and Plan (Free Text) Plan: CHF appears controlled Agree with IV Fe rx Recheck for proteinuria Check PTH, recheck chemistries Renal US noted
--- NOTE | 2017-06-16 13:18 | CP.PCM.PN ---
<Bia Sellers - Last Filed: 06/16/17 20:34> Subjective - Date & Time of Evaluation Date of Evaluation: 06/16/17 Time of Evaluation: 12:00 - Subjective Subjective: Podiatry note for Dr. Andrade 77 year old female patient was seen at bedside this morning for ulceration to right leg. Patient resting comfortably in bed at time of visit. Patient is AAOx3 , NAD. Patient still complains of severe pain to entire right lower extremity distal to knee, and says its painful to lift the leg at all. Patient denies F/C/ N/V/SOB today Objective - Vital Signs/Intake and Output Vital Signs (last 24 hours): Temp Pulse Resp BP Pulse Ox 98.2 F 66 20 117/70 95 06/16/17 08:34 06/16/17 12:18 06/16/17 08:34 06/16/17 12:18 06/16/17 08:34 Intake and Output: 06/16/17 06/16/17 06:59 18:59 Intake Total 720 Balance 720 - Medications Medications: Current Medications Aspirin (Aspirin Chewable) 81 mg PO DAILY [facility] Last Admin: 06/16/17 11:00 Dose: 81 mg Carvedilol (Coreg) 3.125 mg PO DAILY [facility] Last Admin: 06/16/17 11:00 Dose: 3.125 mg Ciprofloxacin (Cipro) 500 mg PO BID [facility] Last Admin: 06/16/17 11:00 Dose: 500 mg Clopidogrel Bisulfate (Plavix) 75 mg PO DAILY [facility] Last Admin: 06/16/17 11:00 Dose: 75 mg Cyclobenzaprine HCl (Flexeril) 5 mg PO TID [facility] Stop: 06/18/17 10:46 Last Admin: 06/16/17 11:13 Dose: 5 mg Docusate Sodium (Colace) 100 mg PO BID [facility] Last Admin: 06/16/17 11:00 Dose: Not Given Furosemide (Lasix) 20 mg IVP QPM [facility] Last Admin: 06/15/17 18:36 Dose: 20 mg Furosemide (Lasix) 40 mg IVP QAM [facility] Last Admin: 06/16/17 11:00 Dose: 40 mg Gabapentin (Neurontin) 200 mg PO TID [facility] Last Admin: 06/16/17 11:00 Dose: 200 mg Heparin Sodium (Porcine) (Heparin) 5,000 units SC Q8 [facility] Last Admin: 06/16/17 06:32 Dose: 5,000 units Levothyroxine Sodium (Synthroid) 100 mcg PO DAILY@0630 [facility] Last Admin: 06/16/17 06:32 Dose: 100 mcg Losartan Potassium (Cozaar) 25 mg PO DAILY [facility] Last Admin: 06/16/17 11:00 Dose: 25 mg Mupirocin (Bactroban Ointment) 0 gm TOP BID [facility] Last Admin: 06/16/17 11:00 Dose: 1 applic Pantoprazole Sodium (Protonix Ec Tab) 40 mg PO DAILY [facility] Last Admin: 06/16/17 11:00 Dose: 40 mg Rosuvastatin Calcium (Crestor) 10 mg PO HS [facility] Last Admin: 06/15/17 21:44 Dose: 10 mg Tramadol HCl (Ultram) 25 mg PO TID PRN PRN Reason: Pain, moderate (4-7) Last Admin: 06/16/17 06:35 Dose: 25 mg - Labs Labs: 06/16/17 07:51 06/16/17 07:51 PT 14.3 SECONDS (9.7-12.2) H 06/13/17 12:53 INR 1.2 06/13/17 12:53 APTT 28 SECONDS (21-34) 06/13/17 12:53 - Constitutional Appears: Well, Non-toxic, No Acute Distress - Extremities Exam Additional comments: Right lower extremity exam DERM: Open wound noted to posterior aspect of right mid leg measuring 2.5cm x 1cm x 0.3cm with fibrotic base. Mild drainage, no malodor, no fluctuance noted. No erythema noted to wound periphery. No probe to bone noted. VASC: +2 lower extremity edema. DP/PT palpable 2/4. CFT<3 sec to all digits ORTHO: Pain on palpation to right lower extremity extending distally from knee to digits. NEURO: Gross sensation intact - Neurological Exam Neurological Exam: Alert, Awake, Oriented x3 - Psychiatric Exam Psychiatric exam: Normal Affect, Normal Mood Assessment and Plan - Assessment and Plan (Free Text) Assessment: 77 yo female patient presents with open ulceration to posterior aspect of right calf Plan: Patient was seen, evaluated at bedside Discussed in detail with attending Dr. Andrade Labs and vitals reviewed; afebrile, WBC 6.8 Right lower extremity dressed with Mupirocin and DSD Wound does not appear clinically infected at this time Podiatry will continue to follow in house <Oneal Andrade - Last Filed: 06/18/17 10:11> Objective - Vital Signs/Intake and Output Vital Signs (last 24 hours): Temp Pulse Resp BP Pulse Ox 101.1 F H 81 20 119/76 94 L 06/18/17 08:00 06/18/17 08:00 06/18/17 08:00 06/18/17 09:49 06/18/17 08:00 - Medications Medications: Current Medications Acetaminophen (Tylenol 325mg Tab) 650 mg PO Q6 PRN PRN Reason: Fever >100.4 F Aspirin (Aspirin Chewable) 81 mg PO DAILY [facility] Last Admin: 06/18/17 09:48 Dose: 81 mg Carvedilol (Coreg) 3.125 mg PO DAILY [facility] Last Admin: 06/18/17 09:49 Dose: 3.125 mg Ciprofloxacin (Cipro) 500 mg PO BID [facility] Last Admin: 06/18/17 09:49 Dose: 500 mg Clopidogrel Bisulfate (Plavix) 75 mg PO DAILY [facility] Last Admin: 06/18/17 09:49 Dose: 75 mg Cyclobenzaprine HCl (Flexeril) 5 mg PO TID [facility] Stop: 06/18/17 10:46 Last Admin: 06/18/17 09:48 Dose: 5 mg Docusate Sodium (Colace) 100 mg PO BID [facility] Last Admin: 06/18/17 09:49 Dose: Not Given Furosemide (Lasix) 20 mg IVP QPM [facility] Last Admin: 06/17/17 17:32 Dose: 20 mg Furosemide (Lasix) 40 mg IVP QAM [facility] Last Admin: 06/18/17 09:49 Dose: 40 mg Gabapentin (Neurontin) 200 mg PO TID [facility] Last Admin: 06/18/17 09:48 Dose: 200 mg Levothyroxine Sodium (Synthroid) 100 mcg PO DAILY@0630 [facility] Last Admin: 06/18/17 06:32 Dose: 100 mcg Losartan Potassium (Cozaar) 25 mg PO DAILY [facility] Last Admin: 06/18/17 09:49 Dose: 25 mg Morphine Sulfate (Morphine) 2 mg IVP Q4 PRN PRN Reason: Pain, severe (8-10) Last Admin: 06/16/17 21:42 Dose: 2 mg Mupirocin (Bactroban Ointment) 0 gm TOP BID [facility] Last Admin: 06/17/17 17:41 Dose: Not Given Pantoprazole Sodium (Protonix Ec Tab) 40 mg PO DAILY [facility] Last Admin: 06/18/17 09:49 Dose: 40 mg Rosuvastatin Calcium (Crestor) 10 mg PO HS [facility] Last Admin: 06/17/17 21:25 Dose: 10 mg Tramadol HCl (Ultram) 25 mg PO TID PRN PRN Reason: Pain, moderate (4-7) Last Admin: 06/18/17 08:14 Dose: 25 mg Trolamine Salicylate (Aspercreme) 0 gm TOP TID [facility] Last Admin: 06/18/17 09:50 Dose: 85 gm - Labs Labs: 06/18/17 07:30 06/18/17 07:30 PT 14.3 SECONDS (9.7-12.2) H 06/13/17 12:53 INR 1.2 06/13/17 12:53 APTT 28 SECONDS (21-34) 06/13/17 12:53 Attending/Attestation - Attestation I have fully participated in the care of the patient.: Yes I have reviewed all pertinent clinical information, including history, physical exam and plan: Yes
--- NOTE | 2017-06-16 16:09 | CP.PCM.PN ---
Subjective - Date & Time of Evaluation Date of Evaluation: 06/16/17 Time of Evaluation: 11:00 - Subjective Subjective: Seen and examined this morning lying comfortable ,no discomfort noted C/O left neck stiffness. Not in SOB Objective - Vital Signs/Intake and Output Vital Signs (last 24 hours): Temp Pulse Resp BP Pulse Ox 98.2 F 66 20 117/70 95 06/16/17 08:34 06/16/17 12:18 06/16/17 08:34 06/16/17 12:18 06/16/17 08:34 Intake and Output: 06/16/17 06/16/17 06:59 18:59 Intake Total 720 Balance 720 - Medications Medications: Current Medications Aspirin (Aspirin Chewable) 81 mg PO DAILY [facility] Last Admin: 06/16/17 11:00 Dose: 81 mg Carvedilol (Coreg) 3.125 mg PO DAILY [facility] Last Admin: 06/16/17 11:00 Dose: 3.125 mg Ciprofloxacin (Cipro) 500 mg PO BID [facility] Last Admin: 06/16/17 11:00 Dose: 500 mg Clopidogrel Bisulfate (Plavix) 75 mg PO DAILY [facility] Last Admin: 06/16/17 11:00 Dose: 75 mg Cyclobenzaprine HCl (Flexeril) 5 mg PO TID [facility] Stop: 06/18/17 10:46 Last Admin: 06/16/17 15:00 Dose: 5 mg Docusate Sodium (Colace) 100 mg PO BID [facility] Last Admin: 06/16/17 11:00 Dose: Not Given Furosemide (Lasix) 20 mg IVP QPM [facility] Last Admin: 06/15/17 18:36 Dose: 20 mg Furosemide (Lasix) 40 mg IVP QAM [facility] Last Admin: 06/16/17 11:00 Dose: 40 mg Gabapentin (Neurontin) 200 mg PO TID [facility] Last Admin: 06/16/17 15:00 Dose: 200 mg Heparin Sodium (Porcine) (Heparin) 5,000 units SC Q8 [facility] Last Admin: 06/16/17 15:00 Dose: 5,000 units Levothyroxine Sodium (Synthroid) 100 mcg PO DAILY@0630 [facility] Last Admin: 06/16/17 06:32 Dose: 100 mcg Losartan Potassium (Cozaar) 25 mg PO DAILY [facility] Last Admin: 06/16/17 11:00 Dose: 25 mg Mupirocin (Bactroban Ointment) 0 gm TOP BID [facility] Last Admin: 06/16/17 11:00 Dose: 1 applic Pantoprazole Sodium (Protonix Ec Tab) 40 mg PO DAILY [facility] Last Admin: 06/16/17 11:00 Dose: 40 mg Rosuvastatin Calcium (Crestor) 10 mg PO HS [facility] Last Admin: 06/15/17 21:44 Dose: 10 mg Tramadol HCl (Ultram) 25 mg PO TID PRN PRN Reason: Pain, moderate (4-7) Last Admin: 06/16/17 15:15 Dose: 25 mg - Labs Labs: 06/16/17 07:51 06/16/17 07:51 PT 14.3 SECONDS (9.7-12.2) H 06/13/17 12:53 INR 1.2 06/13/17 12:53 APTT 28 SECONDS (21-34) 06/13/17 12:53 - Constitutional Appears: Non-toxic - Head Exam Head Exam: NORMAL INSPECTION - Eye Exam Eye Exam: Normal appearance - ENT Exam ENT Exam: Mucous Membranes Moist - Neck Exam Neck Exam: Full ROM - Respiratory Exam Respiratory Exam: Clear to Ausculation Bilateral, NORMAL BREATHING PATTERN - Cardiovascular Exam Cardiovascular Exam: REGULAR RHYTHM - GI/Abdominal Exam GI & Abdominal Exam: Soft, Normal Bowel Sounds - Extremities Exam Extremities Exam: Normal Inspection, Pedal Edema (mild) - Back Exam Back Exam: NORMAL INSPECTION - Neurological Exam Neurological Exam: Awake, Oriented x3 - Psychiatric Exam Psychiatric exam: Normal Mood - Skin Skin Exam: Dry Assessment and Plan - Assessment and Plan (Free Text) Plan: 1.Acute on Chronic SYSTOLIC CHF exacerbation BNP 4500,Cardiac Catheterization in 03/2016 showed EF 25-30% CXR: pulmonary venous congestion vs vascular crowding due to hypo-inflation. Borderline cardiomyopathy Continue Carvedilol 3.125,Continue Cozaar 25mg PO daily,Lasix 40mg IVP Qam, Lasix 20mg IVP Qpm Daily weights, Strict I/Os,Supplemental O2 prn ECHO done -EF 35% s/p ^ beats on VT d/w Dr Bautista 07/16 ,pending MUGA scan 2.Bilateral Lower Extremity Pain, Idiopathic Peripheral neuropathy Lower extremity dopplers negative for DVT,Pain contol Ultram 25mg Q8H prn pain Gabapentin 200mg TID (Home dose lowered due to CKD) Decline in ambulation and leg pain with hypersensitivity PT/OT 3.Severe Coronary Artery Disease s/p stent placement Last stent [place] [address] Kaur at [place] continue asprin and plavix 3.Anemia likely due to Iron deficiency/CRF -Iron<10, TIBC: 223, %Sat 4.5, B12: 612, Folate >20 started on Iron infusion 4.Right Lower Extremity Healing Wound Wound care consulted,Podiatry consulted, help appreciated 5.Chronic Kidney Disease Avoid nephrotoxic medications,monitor creatinine on lasix -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 Hypertension Carvedilol 3.125mg PO daily,Cozaar 25mg PO daily 7 Hypothyroidism Levothyroxine 100mcg daily 8 Hyperlipdemia Crestor Prophylactic Measure -Protonix 40mg PO daily -Heparin 5000U Q8H -Heart Healthy Diet, Salt restricted
[2017-06-17] MEDS: Levothyroxine 100 MCG TAB PO SCH (06:18)
[2017-06-17 08:57] LABS: BASO % 0.5 % (0.0-2.0); EOS # 0.1 K/uL (0.0-0.7); EOS % 0.9 % (0.0-4.0); HEMOGLOBIN 8.9 g/dL (11.0-16.0); LYMPH # 0.8 K/uL (1.0-4.3); LYMPH % 12.6 % (20.0-40.0); MEAN CELL VOLUME 90.2 fL (81.0-99.0); MEAN CORPUSCULAR HEMOGLOBIN 30.5 pg (27.0-31.0); MEAN CORPUSCULAR HGB CONC 33.8 g/dL (33.0-37.0); MEAN PLATELET VOLUME 7.6 fL (7.2-11.7); MONO # 0.6 K/uL (0.0-0.8); MONO % 9.5 % (0.0-10.0); NEUT # 4.9 K/uL (1.8-7.0); NEUT % 76.5 % (50.0-75.0); NRBC % 0.1 % (0.0-2.0); RBC 2.91 Mil/uL (3.80-5.20); RED CELL DISTRIBUTION WIDTH 15.9 % (11.5-14.5); WHITE BLOOD COUNT 6.4 K/uL (4.8-10.8)
--- NOTE | 2017-06-17 09:34 | CP.PCM.PN ---
Subjective - Date & Time of Evaluation Date of Evaluation: 06/15/17 Time of Evaluation: 08:25 - Subjective Subjective: Patient seen and evaluated Denies chest pain and dyspnea Chronic systolic CHF CAD s/p multi vessel PCI Objective - Vital Signs/Intake and Output Vital Signs (last 24 hours): Temp Pulse Resp BP Pulse Ox 99.0 F 81 20 121/71 100 06/17/17 08:00 06/17/17 08:00 06/17/17 08:00 06/17/17 08:00 06/17/17 08:00 Intake and Output: 06/17/17 06/17/17 06:59 18:59 Intake Total 600 Balance 600 - Medications Medications: Current Medications Aspirin (Aspirin Chewable) 81 mg PO DAILY [facility] Last Admin: 06/16/17 11:00 Dose: 81 mg Carvedilol (Coreg) 3.125 mg PO DAILY [facility] Last Admin: 06/16/17 11:00 Dose: 3.125 mg Ciprofloxacin (Cipro) 500 mg PO BID [facility] Last Admin: 06/16/17 18:32 Dose: 500 mg Clopidogrel Bisulfate (Plavix) 75 mg PO DAILY [facility] Last Admin: 06/16/17 11:00 Dose: 75 mg Cyclobenzaprine HCl (Flexeril) 5 mg PO TID [facility] Stop: 06/18/17 10:46 Last Admin: 06/16/17 18:32 Dose: 5 mg Docusate Sodium (Colace) 100 mg PO BID [facility] Last Admin: 06/16/17 18:30 Dose: Not Given Furosemide (Lasix) 20 mg IVP QPM [facility] Last Admin: 06/16/17 18:33 Dose: 20 mg Furosemide (Lasix) 40 mg IVP QAM [facility] Last Admin: 06/16/17 11:00 Dose: 40 mg Gabapentin (Neurontin) 200 mg PO TID [facility] Last Admin: 06/16/17 18:32 Dose: 200 mg Levothyroxine Sodium (Synthroid) 100 mcg PO DAILY@0630 [facility] Last Admin: 06/17/17 06:18 Dose: 100 mcg Losartan Potassium (Cozaar) 25 mg PO DAILY [facility] Last Admin: 06/16/17 11:00 Dose: 25 mg Morphine Sulfate (Morphine) 2 mg IVP Q4 PRN PRN Reason: Pain, severe (8-10) Last Admin: 06/16/17 21:42 Dose: 2 mg Mupirocin (Bactroban Ointment) 0 gm TOP BID [facility] Last Admin: 06/16/17 18:32 Dose: 1 applic Pantoprazole Sodium (Protonix Ec Tab) 40 mg PO DAILY [facility] Last Admin: 06/16/17 11:00 Dose: 40 mg Rosuvastatin Calcium (Crestor) 10 mg PO HS [facility] Last Admin: 06/16/17 21:33 Dose: 10 mg Tramadol HCl (Ultram) 25 mg PO TID PRN PRN Reason: Pain, moderate (4-7) Last Admin: 06/16/17 15:15 Dose: 25 mg Trolamine Salicylate (Aspercreme) 1 gm TOP TID [facility] - Labs Labs: 06/17/17 08:50 PT 14.3 SECONDS (9.7-12.2) H 06/13/17 12:53 INR 1.2 06/13/17 12:53 APTT 28 SECONDS (21-34) 06/13/17 12:53
--- NOTE | 2017-06-17 09:36 | CP.PCM.PN ---
Subjective - Date & Time of Evaluation Date of Evaluation: 06/16/17 Time of Evaluation: 10:20 - Subjective Subjective: Patient seen and evaluated Denies chest pain and dyspnea 6 beats of V Tach Chronic systolic CHF CAD s/p multi vessel PCI Check MUGA to assess EF If EF less than 35% will get LifeVest and ICD eval as out patient Objective - Vital Signs/Intake and Output Vital Signs (last 24 hours): Temp Pulse Resp BP Pulse Ox 99.0 F 81 20 121/71 100 06/17/17 08:00 06/17/17 08:00 06/17/17 08:00 06/17/17 08:00 06/17/17 08:00 Intake and Output: 06/17/17 06/17/17 06:59 18:59 Intake Total 600 Balance 600 - Medications Medications: Current Medications Aspirin (Aspirin Chewable) 81 mg PO DAILY [facility] Last Admin: 06/16/17 11:00 Dose: 81 mg Carvedilol (Coreg) 3.125 mg PO DAILY [facility] Last Admin: 06/16/17 11:00 Dose: 3.125 mg Ciprofloxacin (Cipro) 500 mg PO BID [facility] Last Admin: 06/16/17 18:32 Dose: 500 mg Clopidogrel Bisulfate (Plavix) 75 mg PO DAILY [facility] Last Admin: 06/16/17 11:00 Dose: 75 mg Cyclobenzaprine HCl (Flexeril) 5 mg PO TID [facility] Stop: 06/18/17 10:46 Last Admin: 06/16/17 18:32 Dose: 5 mg Docusate Sodium (Colace) 100 mg PO BID [facility] Last Admin: 06/16/17 18:30 Dose: Not Given Furosemide (Lasix) 20 mg IVP QPM [facility] Last Admin: 06/16/17 18:33 Dose: 20 mg Furosemide (Lasix) 40 mg IVP QAM [facility] Last Admin: 06/16/17 11:00 Dose: 40 mg Gabapentin (Neurontin) 200 mg PO TID [facility] Last Admin: 06/16/17 18:32 Dose: 200 mg Levothyroxine Sodium (Synthroid) 100 mcg PO DAILY@0630 [facility] Last Admin: 06/17/17 06:18 Dose: 100 mcg Losartan Potassium (Cozaar) 25 mg PO DAILY [facility] Last Admin: 06/16/17 11:00 Dose: 25 mg Morphine Sulfate (Morphine) 2 mg IVP Q4 PRN PRN Reason: Pain, severe (8-10) Last Admin: 06/16/17 21:42 Dose: 2 mg Mupirocin (Bactroban Ointment) 0 gm TOP BID [facility] Last Admin: 06/16/17 18:32 Dose: 1 applic Pantoprazole Sodium (Protonix Ec Tab) 40 mg PO DAILY [facility] Last Admin: 06/16/17 11:00 Dose: 40 mg Rosuvastatin Calcium (Crestor) 10 mg PO HS [facility] Last Admin: 06/16/17 21:33 Dose: 10 mg Tramadol HCl (Ultram) 25 mg PO TID PRN PRN Reason: Pain, moderate (4-7) Last Admin: 06/16/17 15:15 Dose: 25 mg Trolamine Salicylate (Aspercreme) 1 gm TOP TID [facility] - Labs Labs: 06/17/17 08:50 PT 14.3 SECONDS (9.7-12.2) H 06/13/17 12:53 INR 1.2 06/13/17 12:53 APTT 28 SECONDS (21-34) 06/13/17 12:53
[2017-06-17 09:37] LABS: ALB/GLOB RATIO 0.9 (1.0-2.1); ALT/SGPT 24 U/L (9-52); AST/SGOT 46 U/L (14-36); BLOOD UREA NITROGEN 36 mg/dL (7-17); CALCIUM 8.1 mg/dl (8.6-10.4); CK-MB < 0.22 ng/mL (0.0-3.38); GFR AFRICAN-AMERICAN 41; GFR NON-AFRICAN AMERICAN 34; MAGNESIUM 1.8 mg/dL (1.6-2.3)
[2017-06-17] MEDS: Pantoprazole 40 mg EC Tab PO SCH (09:58)
[2017-06-17] MEDS: Tramadol 25 mg PO PRN (09:59)
[2017-06-17] MEDS: Trolamine Salicylate 10% Cream (85 gm) TOP SCH ×3 (10:01→17:48)
--- NOTE | 2017-06-17 15:07 | CP.PCM.PN ---
<Bia Sellers - Last Filed: 06/17/17 18:37> Subjective - Date & Time of Evaluation Date of Evaluation: 06/17/17 Time of Evaluation: 15:07 - Subjective Subjective: Podiatry note for Dr. Andrade 77 year old female patient was seen at bedside this afternoon for ulceration to right leg. Patient resting comfortably in bed at time of visit. Patient is AAOx3 , NAD. Patient still complains of severe pain to entire right lower extremity distal to knee, and says its painful to elevate the leg or foot. Patient denies F/C/N/V/SOB today Objective - Vital Signs/Intake and Output Vital Signs (last 24 hours): Temp Pulse Resp BP Pulse Ox 99.0 F 81 20 120/73 100 06/17/17 08:00 06/17/17 08:00 06/17/17 08:00 06/17/17 10:00 06/17/17 08:00 Intake and Output: 06/17/17 06/17/17 06:59 18:59 Intake Total 600 Balance 600 - Medications Medications: Current Medications Aspirin (Aspirin Chewable) 81 mg PO DAILY [facility] Last Admin: 06/17/17 10:00 Dose: 81 mg Carvedilol (Coreg) 3.125 mg PO DAILY [facility] Last Admin: 06/17/17 10:03 Dose: 3.125 mg Ciprofloxacin (Cipro) 500 mg PO BID [facility] Last Admin: 06/17/17 09:58 Dose: 500 mg Clopidogrel Bisulfate (Plavix) 75 mg PO DAILY [facility] Last Admin: 06/17/17 09:58 Dose: 75 mg Cyclobenzaprine HCl (Flexeril) 5 mg PO TID [facility] Stop: 06/18/17 10:46 Last Admin: 06/17/17 14:54 Dose: 5 mg Docusate Sodium (Colace) 100 mg PO BID [facility] Last Admin: 06/17/17 10:07 Dose: Not Given Furosemide (Lasix) 20 mg IVP QPM [facility] Last Admin: 06/16/17 18:33 Dose: 20 mg Furosemide (Lasix) 40 mg IVP QAM [facility] Last Admin: 06/17/17 10:00 Dose: 40 mg Gabapentin (Neurontin) 200 mg PO TID [facility] Last Admin: 06/17/17 09:59 Dose: 200 mg Levothyroxine Sodium (Synthroid) 100 mcg PO DAILY@0630 [facility] Last Admin: 06/17/17 06:18 Dose: 100 mcg Losartan Potassium (Cozaar) 25 mg PO DAILY [facility] Last Admin: 06/17/17 09:59 Dose: 25 mg Morphine Sulfate (Morphine) 2 mg IVP Q4 PRN PRN Reason: Pain, severe (8-10) Last Admin: 06/16/17 21:42 Dose: 2 mg Mupirocin (Bactroban Ointment) 0 gm TOP BID [facility] Last Admin: 06/17/17 10:00 Dose: Not Given Pantoprazole Sodium (Protonix Ec Tab) 40 mg PO DAILY [facility] Last Admin: 06/17/17 09:58 Dose: 40 mg Rosuvastatin Calcium (Crestor) 10 mg PO HS [facility] Last Admin: 06/16/17 21:33 Dose: 10 mg Tramadol HCl (Ultram) 25 mg PO TID PRN PRN Reason: Pain, moderate (4-7) Last Admin: 06/17/17 09:59 Dose: 25 mg Trolamine Salicylate (Aspercreme) 0 gm TOP TID [facility] Last Admin: 06/17/17 14:50 Dose: 1 gm - Labs Labs: 06/17/17 08:50 06/17/17 08:50 PT 14.3 SECONDS (9.7-12.2) H 06/13/17 12:53 INR 1.2 06/13/17 12:53 APTT 28 SECONDS (21-34) 06/13/17 12:53 - Constitutional Appears: Well, Non-toxic, No Acute Distress - Extremities Exam Additional comments: Right lower extremity exam DERM: Open wound noted to posterior aspect of right mid leg measuring 2.5cm x 1cm x 0.3cm with mixed granular and fibrotic base. Mild drainage, no malodor, no fluctuance noted. No erythema noted to wound periphery. No probe to bone noted. VASC: +2 lower extremity edema. DP/PT palpable 2/4. CFT<3 sec to all digits ORTHO: Pain on palpation to right lower extremity extending distally from knee to digits. NEURO: Gross sensation intact - Neurological Exam Neurological Exam: Alert, Awake, Oriented x3 - Psychiatric Exam Psychiatric exam: Normal Affect, Normal Mood Assessment and Plan - Assessment and Plan (Free Text) Assessment: 77 y/o female patient presents with open ulceration to posterior aspect of right calf Plan: Patient was seen, evaluated at bedside Discussed in detail with attending Dr. Andrade Labs and vitals reviewed; afebrile, WBC 6.4 Right lower extremity dressed with Mupirocin and DSD Wound does not appear clinically infected at this time Podiatry will continue to follow in house <Oneal Andrade - Last Filed: 06/18/17 10:12> Objective - Vital Signs/Intake and Output Vital Signs (last 24 hours): Temp Pulse Resp BP Pulse Ox 101.1 F H 81 20 119/76 94 L 06/18/17 08:00 06/18/17 08:00 06/18/17 08:00 06/18/17 09:49 06/18/17 08:00 - Medications Medications: Current Medications Acetaminophen (Tylenol 325mg Tab) 650 mg PO Q6 PRN PRN Reason: Fever >100.4 F Aspirin (Aspirin Chewable) 81 mg PO DAILY [facility] Last Admin: 06/18/17 09:48 Dose: 81 mg Carvedilol (Coreg) 3.125 mg PO DAILY [facility] Last Admin: 06/18/17 09:49 Dose: 3.125 mg Ciprofloxacin (Cipro) 500 mg PO BID [facility] Last Admin: 06/18/17 09:49 Dose: 500 mg Clopidogrel Bisulfate (Plavix) 75 mg PO DAILY [facility] Last Admin: 06/18/17 09:49 Dose: 75 mg Cyclobenzaprine HCl (Flexeril) 5 mg PO TID [facility] Stop: 06/18/17 10:46 Last Admin: 06/18/17 09:48 Dose: 5 mg Docusate Sodium (Colace) 100 mg PO BID [facility] Last Admin: 06/18/17 09:49 Dose: Not Given Furosemide (Lasix) 20 mg IVP QPM [facility] Last Admin: 06/17/17 17:32 Dose: 20 mg Furosemide (Lasix) 40 mg IVP QAM [facility] Last Admin: 06/18/17 09:49 Dose: 40 mg Gabapentin (Neurontin) 200 mg PO TID [facility] Last Admin: 06/18/17 09:48 Dose: 200 mg Levothyroxine Sodium (Synthroid) 100 mcg PO DAILY@0630 [facility] Last Admin: 06/18/17 06:32 Dose: 100 mcg Losartan Potassium (Cozaar) 25 mg PO DAILY [facility] Last Admin: 06/18/17 09:49 Dose: 25 mg Morphine Sulfate (Morphine) 2 mg IVP Q4 PRN PRN Reason: Pain, severe (8-10) Last Admin: 06/16/17 21:42 Dose: 2 mg Mupirocin (Bactroban Ointment) 0 gm TOP BID [facility] Last Admin: 06/17/17 17:41 Dose: Not Given Pantoprazole Sodium (Protonix Ec Tab) 40 mg PO DAILY [facility] Last Admin: 06/18/17 09:49 Dose: 40 mg Rosuvastatin Calcium (Crestor) 10 mg PO HS [facility] Last Admin: 06/17/17 21:25 Dose: 10 mg Tramadol HCl (Ultram) 25 mg PO TID PRN PRN Reason: Pain, moderate (4-7) Last Admin: 06/18/17 08:14 Dose: 25 mg Trolamine Salicylate (Aspercreme) 0 gm TOP TID [facility] Last Admin: 06/18/17 09:50 Dose: 85 gm - Labs Labs: 06/18/17 07:30 06/18/17 07:30 PT 14.3 SECONDS (9.7-12.2) H 06/13/17 12:53 INR 1.2 06/13/17 12:53 APTT 28 SECONDS (21-34) 06/13/17 12:53 Attending/Attestation - Attestation I have fully participated in the care of the patient.: Yes I have reviewed all pertinent clinical information, including history, physical exam and plan: Yes
--- NOTE | 2017-06-17 16:33 | CP.PCM.PN ---
Subjective - Date & Time of Evaluation Date of Evaluation: 06/17/17 Time of Evaluation: 12:00 - Subjective Subjective: Seen and examined,complaining of left neck pain, left neck stiffness Objective - Vital Signs/Intake and Output Vital Signs (last 24 hours): Temp Pulse Resp BP Pulse Ox 99.0 F 81 20 120/73 100 06/17/17 08:00 06/17/17 08:00 06/17/17 08:00 06/17/17 10:00 06/17/17 08:00 Intake and Output: 06/17/17 06/17/17 06:59 18:59 Intake Total 600 Balance 600 - Medications Medications: Current Medications Aspirin (Aspirin Chewable) 81 mg PO DAILY [facility] Last Admin: 06/17/17 10:00 Dose: 81 mg Carvedilol (Coreg) 3.125 mg PO DAILY [facility] Last Admin: 06/17/17 10:03 Dose: 3.125 mg Ciprofloxacin (Cipro) 500 mg PO BID [facility] Last Admin: 06/17/17 09:58 Dose: 500 mg Clopidogrel Bisulfate (Plavix) 75 mg PO DAILY [facility] Last Admin: 06/17/17 09:58 Dose: 75 mg Cyclobenzaprine HCl (Flexeril) 5 mg PO TID [facility] Stop: 06/18/17 10:46 Last Admin: 06/17/17 14:54 Dose: 5 mg Docusate Sodium (Colace) 100 mg PO BID [facility] Last Admin: 06/17/17 10:07 Dose: Not Given Furosemide (Lasix) 20 mg IVP QPM [facility] Last Admin: 06/16/17 18:33 Dose: 20 mg Furosemide (Lasix) 40 mg IVP QAM [facility] Last Admin: 06/17/17 10:00 Dose: 40 mg Gabapentin (Neurontin) 200 mg PO TID [facility] Last Admin: 06/17/17 15:00 Dose: 200 mg Levothyroxine Sodium (Synthroid) 100 mcg PO DAILY@0630 [facility] Last Admin: 06/17/17 06:18 Dose: 100 mcg Losartan Potassium (Cozaar) 25 mg PO DAILY [facility] Last Admin: 06/17/17 09:59 Dose: 25 mg Morphine Sulfate (Morphine) 2 mg IVP Q4 PRN PRN Reason: Pain, severe (8-10) Last Admin: 06/16/17 21:42 Dose: 2 mg Mupirocin (Bactroban Ointment) 0 gm TOP BID [facility] Last Admin: 06/17/17 10:00 Dose: Not Given Pantoprazole Sodium (Protonix Ec Tab) 40 mg PO DAILY [facility] Last Admin: 06/17/17 09:58 Dose: 40 mg Rosuvastatin Calcium (Crestor) 10 mg PO HS [facility] Last Admin: 06/16/17 21:33 Dose: 10 mg Tramadol HCl (Ultram) 25 mg PO TID PRN PRN Reason: Pain, moderate (4-7) Last Admin: 06/17/17 09:59 Dose: 25 mg Trolamine Salicylate (Aspercreme) 0 gm TOP TID [facility] Last Admin: 06/17/17 14:50 Dose: 1 gm - Labs Labs: 06/17/17 08:50 06/17/17 08:50 PT 14.3 SECONDS (9.7-12.2) H 06/13/17 12:53 INR 1.2 06/13/17 12:53 APTT 28 SECONDS (21-34) 06/13/17 12:53 - Constitutional Appears: Non-toxic - Eye Exam Eye Exam: Normal appearance - Neck Exam Neck Exam: Normal Inspection, Tenderness (left sternoclenoid muscle area). absent: Meningismus - Respiratory Exam Respiratory Exam: Clear to Ausculation Bilateral - Cardiovascular Exam Cardiovascular Exam: REGULAR RHYTHM - GI/Abdominal Exam GI & Abdominal Exam: Soft, Normal Bowel Sounds. absent: Tenderness - Extremities Exam Extremities Exam: Full ROM - Back Exam Back Exam: CVA tenderness (L) - Neurological Exam Neurological Exam: Awake, Oriented x3 - Psychiatric Exam Psychiatric exam: Normal Mood - Skin Skin Exam: Dry Assessment and Plan - Assessment and Plan (Free Text) Plan: 1.Acute on Chronic SYSTOLIC CHF exacerbation Imroving.c/o SOB on exertion BNP 4500,Cardiac Catheterization in 03/2016 showed EF 25-30% CXR: pulmonary venous congestion vs vascular crowding due to hypo-inflation. Borderline cardiomyopathy Continue Carvedilol 3.125,Continue Cozaar 25mg PO daily,Lasix 40mg IVP Qam, Lasix 20mg IVP Qpm Daily weights, Strict I/Os,Supplemental O2 prn ECHO done -EF 35% s/p ^ beats on VT d/w Dr Bautista 07/16 ,pending MUGA scan 2.Bilateral Lower Extremity Pain, Idiopathic Peripheral neuropathy Lower extremity dopplers negative for DVT,Pain contol Ultram 25mg Q8H prn pain Gabapentin 200mg TID (Home dose lowered due to CKD) Decline in ambulation and leg pain with hypersensitivity -PT/OT and rehab 3.Severe Coronary Artery Disease s/p stent placement Last stent [place] [address] Kaur at [place] continue asprin and plavix 3.Anemia likely due to Iron deficiency/CRF -Iron<10, TIBC: 223, %Sat 4.5, B12: 612, Folate >20 started on Iron infusion 4.Right Lower Extremity Healing Wound Wound care consulted,Podiatry consulted, help appreciated 5.Chronic Kidney Disease Avoid nephrotoxic medications,monitor creatinine on lasix -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 Hypertension Carvedilol 3.125mg PO daily,Cozaar 25mg PO daily 7 Hypothyroidism Levothyroxine 100mcg daily 8 Hyperlipdemia Crestor 9.neck stiffness-pain meds and flexeril Prophylactic Measure -Protonix 40mg PO daily -Heparin 5000U Q8H -Heart Healthy Diet, Salt restricted
--- NOTE | 2017-06-17 21:47 | CP.PCM.PN ---
Subjective - Date & Time of Evaluation Date of Evaluation: 06/17/17 Time of Evaluation: 18:30 - Subjective Subjective: Patient seen and evaluated Denies chest pain and dyspnea 6 beats of V Tach Chronic systolic CHF CAD s/p multi vessel PCI Check MUGA to assess EF If EF less than 35% will get LifeVest and ICD eval as out patient Objective - Vital Signs/Intake and Output Vital Signs (last 24 hours): Temp Pulse Resp BP Pulse Ox 98.4 F 66 22 123/65 94 L 06/17/17 18:30 06/17/17 16:00 06/17/17 16:00 06/17/17 17:32 06/17/17 16:00 Intake and Output: 06/17/17 06/18/17 18:59 06:59 Intake Total 480 Balance 480 - Medications Medications: Current Medications Aspirin (Aspirin Chewable) 81 mg PO DAILY [facility] Last Admin: 06/17/17 10:00 Dose: 81 mg Carvedilol (Coreg) 3.125 mg PO DAILY [facility] Last Admin: 06/17/17 10:03 Dose: 3.125 mg Ciprofloxacin (Cipro) 500 mg PO BID [facility] Last Admin: 06/17/17 17:31 Dose: 500 mg Clopidogrel Bisulfate (Plavix) 75 mg PO DAILY [facility] Last Admin: 06/17/17 09:58 Dose: 75 mg Cyclobenzaprine HCl (Flexeril) 5 mg PO TID [facility] Stop: 06/18/17 10:46 Last Admin: 06/17/17 17:31 Dose: 5 mg Docusate Sodium (Colace) 100 mg PO BID [facility] Last Admin: 06/17/17 18:29 Dose: Not Given Furosemide (Lasix) 20 mg IVP QPM [facility] Last Admin: 06/17/17 17:32 Dose: 20 mg Furosemide (Lasix) 40 mg IVP QAM [facility] Last Admin: 06/17/17 10:00 Dose: 40 mg Gabapentin (Neurontin) 200 mg PO TID [facility] Last Admin: 06/17/17 17:31 Dose: 200 mg Levothyroxine Sodium (Synthroid) 100 mcg PO DAILY@0630 [facility] Last Admin: 06/17/17 06:18 Dose: 100 mcg Losartan Potassium (Cozaar) 25 mg PO DAILY [facility] Last Admin: 06/17/17 09:59 Dose: 25 mg Morphine Sulfate (Morphine) 2 mg IVP Q4 PRN PRN Reason: Pain, severe (8-10) Last Admin: 06/16/17 21:42 Dose: 2 mg Mupirocin (Bactroban Ointment) 0 gm TOP BID [facility] Last Admin: 06/17/17 17:41 Dose: Not Given Pantoprazole Sodium (Protonix Ec Tab) 40 mg PO DAILY [facility] Last Admin: 06/17/17 09:58 Dose: 40 mg Rosuvastatin Calcium (Crestor) 10 mg PO HS [facility] Last Admin: 06/17/17 21:25 Dose: 10 mg Tramadol HCl (Ultram) 25 mg PO TID PRN PRN Reason: Pain, moderate (4-7) Last Admin: 06/17/17 09:59 Dose: 25 mg Trolamine Salicylate (Aspercreme) 0 gm TOP TID [facility] Last Admin: 06/17/17 17:48 Dose: 1 gm - Labs Labs: 06/17/17 08:50 06/17/17 08:50 PT 14.3 SECONDS (9.7-12.2) H 06/13/17 12:53 INR 1.2 06/13/17 12:53 APTT 28 SECONDS (21-34) 06/13/17 12:53
[2017-06-18] MEDS: Levothyroxine 100 MCG TAB PO SCH (06:32)
[2017-06-18 07:50] LABS: BASO % 0.4 % (0.0-2.0); EOS # 0.2 K/uL (0.0-0.7); EOS % 2.4 % (0.0-4.0); LYMPH # 0.9 K/uL (1.0-4.3); LYMPH % 12.2 % (20.0-40.0); MEAN CELL VOLUME 90.9 fL (81.0-99.0); MEAN CORPUSCULAR HEMOGLOBIN 29.6 pg (27.0-31.0); MEAN CORPUSCULAR HGB CONC 32.6 g/dL (33.0-37.0); MEAN PLATELET VOLUME 7.5 fL (7.2-11.7); MONO # 0.8 K/uL (0.0-0.8); MONO % 9.7 % (0.0-10.0); NEUT # 5.8 K/uL (1.8-7.0); NEUT % 75.3 % (50.0-75.0); NRBC % 0.1 % (0.0-2.0); RBC 3.04 Mil/uL (3.80-5.20); RED CELL DISTRIBUTION WIDTH 15.5 % (11.5-14.5); WHITE BLOOD COUNT 7.7 K/uL (4.8-10.8)
[2017-06-18] MEDS: Tramadol 25 mg PO PRN ×2 (08:14→18:11)
[2017-06-18 08:37] LABS: ALB/GLOB RATIO 0.9 (1.0-2.1); CALCIUM 7.9 mg/dl (8.6-10.4)
[2017-06-18] MEDS: Pantoprazole 40 mg EC Tab PO SCH (09:49)
[2017-06-18] MEDS: Trolamine Salicylate 10% Cream (85 gm) TOP SCH ×3 (09:50→18:06)
--- NOTE | 2017-06-18 09:51 | RAD ---
Chest x-ray single frontal view History: Shortness of breath. Comparison: 06/13/2017 Findings: Mild venous congestion. Cardiomegaly. Tortuous ectatic aorta. Degenerative changes in the spine and shoulders. Impression: Mild venous congestion with cardiomegaly.
--- NOTE | 2017-06-18 09:53 | CP.PCM.PN ---
Subjective - Date & Time of Evaluation Date of Evaluation: 06/18/17 Time of Evaluation: 07:00 - Subjective Subjective: PGY1- Medicine Note- Dr. Garcia's Service Patient seen and examined at bedside and in no acute distress. Patient says she is still having neck spasms. Patient says sometimes when her neck spasms her whole body hurts from it. Patient denies any shortness of breath, abdominal pain , nausea, vomiting, constipation, or diarrhea. Objective - Vital Signs/Intake and Output Vital Signs (last 24 hours): Temp Pulse Resp BP Pulse Ox 101.1 F H 81 20 119/76 94 L 06/18/17 08:00 06/18/17 08:00 06/18/17 08:00 06/18/17 09:49 06/18/17 08:00 - Medications Medications: Current Medications Acetaminophen (Tylenol 325mg Tab) 650 mg PO Q6 PRN PRN Reason: Fever >100.4 F Aspirin (Aspirin Chewable) 81 mg PO DAILY [facility] Last Admin: 06/18/17 09:48 Dose: 81 mg Carvedilol (Coreg) 3.125 mg PO DAILY [facility] Last Admin: 06/18/17 09:49 Dose: 3.125 mg Ciprofloxacin (Cipro) 500 mg PO BID [facility] Last Admin: 06/18/17 09:49 Dose: 500 mg Clopidogrel Bisulfate (Plavix) 75 mg PO DAILY [facility] Last Admin: 06/18/17 09:49 Dose: 75 mg Cyclobenzaprine HCl (Flexeril) 5 mg PO TID [facility] Stop: 06/18/17 10:46 Last Admin: 06/18/17 09:48 Dose: 5 mg Docusate Sodium (Colace) 100 mg PO BID [facility] Last Admin: 06/18/17 09:49 Dose: Not Given Furosemide (Lasix) 20 mg IVP QPM [facility] Last Admin: 06/17/17 17:32 Dose: 20 mg Furosemide (Lasix) 40 mg IVP QAM [facility] Last Admin: 06/18/17 09:49 Dose: 40 mg Gabapentin (Neurontin) 200 mg PO TID [facility] Last Admin: 06/18/17 09:48 Dose: 200 mg Levothyroxine Sodium (Synthroid) 100 mcg PO DAILY@0630 [facility] Last Admin: 06/18/17 06:32 Dose: 100 mcg Losartan Potassium (Cozaar) 25 mg PO DAILY [facility] Last Admin: 06/18/17 09:49 Dose: 25 mg Morphine Sulfate (Morphine) 2 mg IVP Q4 PRN PRN Reason: Pain, severe (8-10) Last Admin: 06/16/17 21:42 Dose: 2 mg Mupirocin (Bactroban Ointment) 0 gm TOP BID [facility] Last Admin: 06/17/17 17:41 Dose: Not Given Pantoprazole Sodium (Protonix Ec Tab) 40 mg PO DAILY [facility] Last Admin: 06/18/17 09:49 Dose: 40 mg Rosuvastatin Calcium (Crestor) 10 mg PO HS [facility] Last Admin: 06/17/17 21:25 Dose: 10 mg Tramadol HCl (Ultram) 25 mg PO TID PRN PRN Reason: Pain, moderate (4-7) Last Admin: 06/18/17 08:14 Dose: 25 mg Trolamine Salicylate (Aspercreme) 0 gm TOP TID [facility] Last Admin: 06/18/17 09:50 Dose: 85 gm - Labs Labs: 06/18/17 07:30 06/18/17 07:30 PT 14.3 SECONDS (9.7-12.2) H 06/13/17 12:53 INR 1.2 06/13/17 12:53 APTT 28 SECONDS (21-34) 06/13/17 12:53 - Constitutional Appears: Non-toxic, No Acute Distress - Head Exam Head Exam: ATRAUMATIC, NORMAL INSPECTION, NORMOCEPHALIC - Eye Exam Eye Exam: EOMI, Normal appearance - ENT Exam ENT Exam: Mucous Membranes Moist - Respiratory Exam Respiratory Exam: Clear to Ausculation Bilateral, NORMAL BREATHING PATTERN - Cardiovascular Exam Cardiovascular Exam: REGULAR RHYTHM, RRR, +S1, +S2 - GI/Abdominal Exam GI & Abdominal Exam: Soft, Normal Bowel Sounds. absent: Tenderness - Extremities Exam Extremities Exam: Normal Inspection, Tenderness. absent: Full ROM (pain with movement), Pedal Edema - Neurological Exam Neurological Exam: Alert, Awake, Oriented x3 - Psychiatric Exam Psychiatric exam: Normal Affect, Normal Mood - Skin Skin Exam: Intact, Normal Color, Warm Assessment and Plan - Assessment and Plan (Free Text) Assessment: Acute on Chronic SYSTOLIC CHF exacerbation Improving c/o SOB on exertion BNP 4500,Cardiac Catheterization in 03/2016 showed EF 25-30% CXR: pulmonary venous congestion vs vascular crowding due to hypo-inflation. Borderline cardiomyopathy Continue Carvedilol 3.125,Continue Cozaar 25mg PO daily,Lasix 40mg IVP Qam, Lasix 20mg IVP Qpm Daily weights, Strict I/Os,Supplemental O2 prn ECHO done -EF 35% s/p ^ beats on VT d/w Dr Bautista 07/16 ,pending MUGA scan if EF <35 will need life vest or ICD eval as an outpatient * MUGA scan unable to be done because patient unable to be in proper positioning due to pain Bilateral Lower Extremity Pain, Idiopathic Peripheral neuropathy Lower extremity dopplers negative for DVT,Pain contol Ultram 25mg Q8H prn pain Gabapentin 200mg TID (Home dose lowered due to CKD) Decline in ambulation and leg pain with hypersensitivity -PT/OT and rehab Fever r/o infectious process Cxray to r/o pneumonia 06/18/17: mild venous congestion with cardiomegaly blood cultures UA and UC Severe Coronary Artery Disease s/p stent placement Last stent was [place] in [address] Kaur at [place] continue aspirin and plavix Anemia likely due to Iron deficiency/CRF -Iron<10, TIBC: 223, %Sat 4.5, B12: 612, Folate >20 iron infusion contraindicated due to possible infectious process Feosol 325mg po daily Right Lower Extremity Healing Wound Wound care consulted,Podiatry consulted, help appreciated Cipro 500mg po BID Chronic Kidney Disease increased on 06/18 to 46/2.2 Avoid nephrotoxic medications,monitor creatinine on lasix, Lasix decreased to 40mg daily due to increasing BUN/Cr -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 Garcia
[2017-06-18 09:58] LABS: HEPATITIS B SURFACE AG NEGATIVE (NEGATIVE)
[2017-06-18] MEDS ORDERED: Ferric Sodium Gluconat Complex 62.5 mg/5 ml Vial IVPB SCH (10:30)
[2017-06-18] MEDS ORDERED: Ferric Sodium Gluconat Complex 125 MG in Sodium Chloride 0.9% 100 ML IVPB ONE (11:00)
--- NOTE | 2017-06-18 13:09 | CP.PCM.PN ---
Subjective - Date & Time of Evaluation Date of Evaluation: 06/18/17 Time of Evaluation: 13:07 - Subjective Subjective: Could not have XR this AM due to neck pain Creat increased to 2.2 CHF sxs better still with severe nack pain Objective - Vital Signs/Intake and Output Vital Signs (last 24 hours): Temp Pulse Resp BP Pulse Ox 101.1 F H 81 20 119/76 94 L 06/18/17 08:00 06/18/17 08:00 06/18/17 08:00 06/18/17 09:49 06/18/17 08:00 - Medications Medications: Current Medications Acetaminophen (Tylenol 325mg Tab) 650 mg PO Q6 PRN PRN Reason: Fever >100.4 F Aspirin (Aspirin Chewable) 81 mg PO DAILY [facility] Last Admin: 06/18/17 09:48 Dose: 81 mg Carvedilol (Coreg) 3.125 mg PO DAILY [facility] Last Admin: 06/18/17 09:49 Dose: 3.125 mg Ciprofloxacin (Cipro) 500 mg PO BID [facility] Last Admin: 06/18/17 09:49 Dose: 500 mg Clopidogrel Bisulfate (Plavix) 75 mg PO DAILY [facility] Last Admin: 06/18/17 09:49 Dose: 75 mg Docusate Sodium (Colace) 100 mg PO BID [facility] Last Admin: 06/18/17 09:49 Dose: Not Given Furosemide (Lasix) 20 mg IVP QPM [facility] Last Admin: 06/17/17 17:32 Dose: 20 mg Furosemide (Lasix) 40 mg IVP QAM [facility] Last Admin: 06/18/17 09:49 Dose: 40 mg Gabapentin (Neurontin) 200 mg PO TID [facility] Last Admin: 06/18/17 09:48 Dose: 200 mg Levothyroxine Sodium (Synthroid) 100 mcg PO DAILY@0630 [facility] Last Admin: 06/18/17 06:32 Dose: 100 mcg Losartan Potassium (Cozaar) 25 mg PO DAILY [facility] Last Admin: 06/18/17 09:49 Dose: 25 mg Morphine Sulfate (Morphine) 2 mg IVP Q4 PRN PRN Reason: Pain, severe (8-10) Last Admin: 06/18/17 10:55 Dose: 2 mg Mupirocin (Bactroban Ointment) 0 gm TOP BID [facility] Last Admin: 01/07/18 17:41 Dose: Not Given Pantoprazole Sodium (Protonix Ec Tab) 40 mg PO DAILY [facility] Last Admin: 06/18/17 09:49 Dose: 40 mg Rosuvastatin Calcium (Crestor) 10 mg PO HS [facility] Last Admin: 06/17/17 21:25 Dose: 10 mg Tramadol HCl (Ultram) 25 mg PO TID PRN PRN Reason: Pain, moderate (4-7) Last Admin: 06/18/17 08:14 Dose: 25 mg Trolamine Salicylate (Aspercreme) 0 gm TOP TID [facility] Last Admin: 06/18/17 09:50 Dose: 85 gm - Labs Labs: 06/18/17 07:30 06/18/17 07:30 PT 14.3 SECONDS (9.7-12.2) H 06/13/17 12:53 INR 1.2 06/13/17 12:53 APTT 28 SECONDS (21-34) 06/13/17 12:53 - Constitutional Appears: Non-toxic, In Acute Distress, Chronically Ill - Head Exam Head Exam: ATRAUMATIC, NORMAL INSPECTION - Eye Exam Eye Exam: EOMI, Normal appearance - Neck Exam Neck Exam: Normal Inspection. absent: Tenderness - Respiratory Exam Respiratory Exam: Clear to Ausculation Bilateral, NORMAL BREATHING PATTERN - Cardiovascular Exam Cardiovascular Exam: REGULAR RHYTHM, +S1 - GI/Abdominal Exam GI & Abdominal Exam: Soft. absent: Tenderness - Extremities Exam Extremities Exam: Normal Inspection, Tenderness - Neurological Exam Neurological Exam: Alert, CN II-XII Intact - Skin Skin Exam: Dry, Warm Assessment and Plan (1) CHF (congestive heart failure) Status: Acute (2) Iron deficiency anemia Status: Acute (3) CAD (coronary artery disease) Status: Acute (4) Cellulitis of right leg Status: Acute - Assessment and Plan (Free Text) Plan: Due to increase creat- hold ARB and decrease lasix
[2017-06-18] MEDS ORDERED: Magnesium Sulfate 1 gm in D5W 1 GM/100 ML BAG IVPB ONE (14:41)
--- NOTE | 2017-06-18 16:15 | CP.PCM.PN ---
<Johanny Corcoran - Last Filed: 06/18/17 16:13> Subjective - Date & Time of Evaluation Date of Evaluation: 06/18/17 Time of Evaluation: 16:14 - Subjective Subjective: Podiatry note for Dr. Andrade 77 year old female patient was seen at bedside this afternoon for ulceration to posterior right leg. Patient resting comfortably in bed at time of visit. Patient is AAOx3, NAD. Patient still complains of severe pain to entire right lower extremity distal to knee, and says its painful to elevate the leg or foot. Patient denies F/C/N/V/SOB today Objective - Vital Signs/Intake and Output Vital Signs (last 24 hours): Temp Pulse Resp BP Pulse Ox 101.1 F H 81 20 119/76 94 L 06/18/17 08:00 06/18/17 08:00 06/18/17 08:00 06/18/17 09:49 06/18/17 08:00 - Medications Medications: Current Medications Acetaminophen (Tylenol 325mg Tab) 650 mg PO Q6 PRN PRN Reason: Fever >100.4 F Aspirin (Aspirin Chewable) 81 mg PO DAILY [facility] Last Admin: 06/18/17 09:48 Dose: 81 mg Carvedilol (Coreg) 3.125 mg PO DAILY [facility] Last Admin: 06/18/17 09:49 Dose: 3.125 mg Ciprofloxacin (Cipro) 500 mg PO BID [facility] Last Admin: 06/18/17 09:49 Dose: 500 mg Clopidogrel Bisulfate (Plavix) 75 mg PO DAILY [facility] Last Admin: 06/18/17 09:49 Dose: 75 mg Cyclobenzaprine HCl (Flexeril) 10 mg PO BID [facility] Docusate Sodium (Colace) 100 mg PO BID [facility] Last Admin: 06/18/17 09:49 Dose: Not Given Ferrous Sulfate (Feosol) 325 mg PO DAILY [facility] Furosemide (Lasix) 40 mg PO DAILY [facility] Gabapentin (Neurontin) 200 mg PO TID [facility] Last Admin: 06/18/17 13:28 Dose: 200 mg Ipratropium [place] (Atrovent Hfa) 2 puff IH BID [facility] Levothyroxine Sodium (Synthroid) 100 mcg PO DAILY@0630 [facility] Last Admin: 06/18/17 06:32 Dose: 100 mcg Morphine Sulfate (Morphine) 2 mg IVP Q4 PRN PRN Reason: Pain, severe (8-10) Last Admin: 06/18/17 10:55 Dose: 2 mg Mupirocin (Bactroban Ointment) 0 gm TOP BID [facility] Last Admin: 06/18/17 13:00 Dose: 1 applic Pantoprazole Sodium (Protonix Ec Tab) 40 mg PO DAILY [facility] Last Admin: 06/18/17 09:49 Dose: 40 mg Rosuvastatin Calcium (Crestor) 10 mg PO HS [facility] Last Admin: 06/17/17 21:25 Dose: 10 mg Tramadol HCl (Ultram) 25 mg PO TID PRN PRN Reason: Pain, moderate (4-7) Last Admin: 06/18/17 08:14 Dose: 25 mg Trolamine Salicylate (Aspercreme) 0 gm TOP TID [facility] Last Admin: 06/18/17 13:33 Dose: 85 gm - Labs Labs: 06/18/17 07:30 06/18/17 07:30 PT 14.3 SECONDS (9.7-12.2) H 06/13/17 12:53 INR 1.2 06/13/17 12:53 APTT 28 SECONDS (21-34) 06/13/17 12:53 - Constitutional Appears: Well, Non-toxic, No Acute Distress - Extremities Exam Additional comments: Right lower extremity exam DERM: Open wound noted to posterior aspect of right mid leg measuring 2.5cm x 1cm x 0.3cm with mixed granular and fibrotic base. Mild drainage, no malodor, no fluctuance noted. No erythema noted to wound periphery. No probe to bone noted. VASC: +2 lower extremity edema. DP/PT palpable 2/4. CFT<3 sec to all digits ORTHO: Pain on palpation to right lower extremity extending distally from knee to digits. NEURO: Gross sensation intact - Neurological Exam Neurological Exam: Alert, Awake, Oriented x3 - Psychiatric Exam Psychiatric exam: Normal Affect, Normal Mood Assessment and Plan - Assessment and Plan (Free Text) Assessment: 77 y/o female patient presents with open ulceration to posterior aspect of right calf Plan: Patient was seen, evaluated at bedside Discussed in detail with attending Dr. Andrade Labs and vitals reviewed; afebrile, WBC 7.7 Right lower extremity dressed with Mupirocin and DSD Wound does not appear clinically infected at this time Podiatry will continue to follow in house <Oneal Andrade - Last Filed: 06/19/17 11:16> Objective - Vital Signs/Intake and Output Vital Signs (last 24 hours): Temp Pulse Resp BP Pulse Ox 98.4 F 74 20 99/50 L 95 06/19/17 08:37 06/19/17 08:37 06/19/17 08:37 06/19/17 10:13 06/19/17 08:37 Intake and Output: 06/19/17 06/19/17 06:59 18:59 Intake Total 340 Balance 340 - Medications Medications: Current Medications Acetaminophen (Tylenol 325mg Tab) 650 mg PO Q6 PRN PRN Reason: Fever >100.4 F Aspirin (Aspirin Chewable) 81 mg PO DAILY [facility] Last Admin: 06/19/17 10:07 Dose: 81 mg Carvedilol (Coreg) 3.125 mg PO DAILY [facility] Last Admin: 06/19/17 10:13 Dose: Not Given Ciprofloxacin (Cipro) 500 mg PO BID [facility] Last Admin: 06/19/17 10:07 Dose: 500 mg Clopidogrel Bisulfate (Plavix) 75 mg PO DAILY [facility] Last Admin: 06/19/17 10:07 Dose: 75 mg Cyclobenzaprine HCl (Flexeril) 10 mg PO BID [facility] Last Admin: 06/19/17 10:07 Dose: 10 mg Docusate Sodium (Colace) 100 mg PO BID [facility] Last Admin: 06/19/17 10:13 Dose: Not Given Ferrous Sulfate (Feosol) 325 mg PO DAILY [facility] Last Admin: 06/19/17 10:07 Dose: 325 mg Furosemide (Lasix) 40 mg PO DAILY [facility] Last Admin: 06/19/17 10:13 Dose: Not Given Gabapentin (Neurontin) 200 mg PO TID [facility] Last Admin: 06/19/17 10:07 Dose: 200 mg Ipratropium [place] (Atrovent Hfa) 2 puff IH BID [facility] Levothyroxine Sodium (Synthroid) 100 mcg PO DAILY@0630 [facility] Last Admin: 06/19/17 06:25 Dose: 100 mcg Morphine Sulfate (Morphine) 2 mg IVP Q4 PRN PRN Reason: Pain, severe (8-10) Last Admin: 06/18/17 21:12 Dose: 2 mg Mupirocin (Bactroban Ointment) 0 gm TOP BID [facility] Last Admin: 06/19/17 10:15 Dose: 1 applic Pantoprazole Sodium (Protonix Ec Tab) 40 mg PO DAILY [facility] Last Admin: 06/19/17 10:07 Dose: 40 mg Psyllium Hydrophilic Mucilloid (Hydrocil Instant) 1 pkt PO BID [facility] Rosuvastatin Calcium (Crestor) 10 mg PO HS [facility] Last Admin: 06/18/17 21:12 Dose: 10 mg Tramadol HCl (Ultram) 25 mg PO TID PRN PRN Reason: Pain, moderate (4-7) Last Admin: 06/19/17 08:22 Dose: 25 mg Trolamine Salicylate (Aspercreme) 0 gm TOP TID [facility] Last Admin: 06/19/17 10:04 Dose: 85 gm - Labs Labs: 06/19/17 07:10 06/19/17 07:10 PT 14.3 SECONDS (9.7-12.2) H 06/13/17 12:53 INR 1.2 06/13/17 12:53 APTT 28 SECONDS (21-34) 06/13/17 12:53 Attending/Attestation - Attestation I have fully participated in the care of the patient.: Yes I have reviewed all pertinent clinical information, including history, physical exam and plan: Yes
[2017-06-18] MEDS ORDERED: Ipratropium 17 mcg/puff-200 puff/12.5 gm HFA Inh IH SCH (18:00)
--- NOTE | 2017-06-19 00:03 | CARD ---
APPROVED REPORT EKG Measurement Heart [id number] <Conclusion> Sinus rhythm with premature atrial complexes Left axis deviation Septal infarct, age undetermined Possible Lateral infarct, age undetermined Abnormal ECG
[2017-06-19] MEDS: Levothyroxine 100 MCG TAB PO SCH (06:25)
[2017-06-19 07:16] LABS: BASO # 0.1 K/uL (0.0-0.2); BASO % 0.7 % (0.0-2.0); EOS # 0.1 K/uL (0.0-0.7); EOS % 1.7 % (0.0-4.0); HEMOGLOBIN 8.7 g/dL (11.0-16.0); LYMPH # 0.9 K/uL (1.0-4.3); LYMPH % 12.4 % (20.0-40.0); MEAN CORPUSCULAR HEMOGLOBIN 30.4 pg (27.0-31.0); MEAN CORPUSCULAR HGB CONC 33.8 g/dL (33.0-37.0); MEAN PLATELET VOLUME 7.7 fL (7.2-11.7); MONO # 0.7 K/uL (0.0-0.8); MONO % 9.4 % (0.0-10.0); NEUT # 5.6 K/uL (1.8-7.0); NEUT % 75.8 % (50.0-75.0); RBC 2.88 Mil/uL (3.80-5.20); RED CELL DISTRIBUTION WIDTH 15.8 % (11.5-14.5); WHITE BLOOD COUNT 7.4 K/uL (4.8-10.8)
[2017-06-19 08:14] LABS: ALB/GLOB RATIO 0.9 (1.0-2.1); CALCIUM 7.9 mg/dl (8.6-10.4); MAGNESIUM 2.2 mg/dL (1.6-2.3)
[2017-06-19] MEDS: Tramadol 25 mg PO PRN (08:22)
[2017-06-19] MEDS: Trolamine Salicylate 10% Cream (85 gm) TOP SCH ×3 (10:04→18:09)
[2017-06-19] MEDS: Pantoprazole 40 mg EC Tab PO SCH (10:07)
--- NOTE | 2017-06-19 11:41 | CP.PCM.PN ---
<Johanny Corcoran - Last Filed: 06/19/17 11:39> Subjective - Date & Time of Evaluation Date of Evaluation: 06/19/17 Time of Evaluation: 11:39 - Subjective Subjective: Podiatry note for Dr. Andrade 77 year old female patient was seen at bedside this afternoon for ulceration to posterior right leg. Patient resting comfortably in bed at time of visit. Patient is AAOx3, NAD. Patient still complains of severe pain to entire right lower extremity distal to knee, and says its painful to elevate the leg or foot. Patient denies F/C/N/V/SOB today Objective - Vital Signs/Intake and Output Vital Signs (last 24 hours): Temp Pulse Resp BP Pulse Ox 98.4 F 74 20 99/50 L 95 06/19/17 08:37 06/19/17 08:37 06/19/17 08:37 06/19/17 10:13 06/19/17 08:37 Intake and Output: 06/19/17 06/19/17 06:59 18:59 Intake Total 340 Balance 340 - Medications Medications: Current Medications Acetaminophen (Tylenol 325mg Tab) 650 mg PO Q6 PRN PRN Reason: Fever >100.4 F Aspirin (Aspirin Chewable) 81 mg PO DAILY [facility] Last Admin: 06/19/17 10:07 Dose: 81 mg Carvedilol (Coreg) 3.125 mg PO DAILY [facility] Last Admin: 06/19/17 10:13 Dose: Not Given Ciprofloxacin (Cipro) 500 mg PO BID [facility] Last Admin: 06/19/17 10:07 Dose: 500 mg Clopidogrel Bisulfate (Plavix) 75 mg PO DAILY [facility] Last Admin: 06/19/17 10:07 Dose: 75 mg Cyclobenzaprine HCl (Flexeril) 10 mg PO BID [facility] Last Admin: 06/19/17 10:07 Dose: 10 mg Docusate Sodium (Colace) 100 mg PO BID [facility] Last Admin: 06/19/17 10:13 Dose: Not Given Ferrous Sulfate (Feosol) 325 mg PO DAILY [facility] Last Admin: 06/19/17 10:07 Dose: 325 mg Furosemide (Lasix) 40 mg PO DAILY [facility] Last Admin: 06/19/17 10:13 Dose: Not Given Gabapentin (Neurontin) 200 mg PO TID [facility] Last Admin: 06/19/17 10:07 Dose: 200 mg Ipratropium [place] (Atrovent Hfa) 2 puff IH BID [facility] Levothyroxine Sodium (Synthroid) 100 mcg PO DAILY@0630 [facility] Last Admin: 06/19/17 06:25 Dose: 100 mcg Morphine Sulfate (Morphine) 2 mg IVP Q4 PRN PRN Reason: Pain, severe (8-10) Last Admin: 06/18/17 21:12 Dose: 2 mg Mupirocin (Bactroban Ointment) 0 gm TOP BID [facility] Last Admin: 06/19/17 10:15 Dose: 1 applic Pantoprazole Sodium (Protonix Ec Tab) 40 mg PO DAILY [facility] Last Admin: 06/19/17 10:07 Dose: 40 mg Psyllium Hydrophilic Mucilloid (Hydrocil Instant) 1 pkt PO BID [facility] Rosuvastatin Calcium (Crestor) 10 mg PO HS [facility] Last Admin: 06/18/17 21:12 Dose: 10 mg Tramadol HCl (Ultram) 25 mg PO TID PRN PRN Reason: Pain, moderate (4-7) Last Admin: 06/19/17 08:22 Dose: 25 mg Trolamine Salicylate (Aspercreme) 0 gm TOP TID [facility] Last Admin: 06/19/17 10:04 Dose: 85 gm - Labs Labs: 06/19/17 07:10 06/19/17 07:10 PT 14.3 SECONDS (9.7-12.2) H 06/13/17 12:53 INR 1.2 06/13/17 12:53 APTT 28 SECONDS (21-34) 06/13/17 12:53 - Constitutional Appears: Well, Non-toxic, No Acute Distress - Extremities Exam Additional comments: Right lower extremity exam DERM: Open wound noted to posterior aspect of right mid leg measuring 2.5cm x 1cm x 0.3cm with mixed granular and fibrotic base. Mild drainage, no malodor, no fluctuance noted. No erythema noted to wound periphery. No probe to bone noted. VASC: +2 lower extremity edema. DP/PT palpable 2/4. CFT<3 sec to all digits ORTHO: Pain on palpation to right lower extremity extending distally from knee to digits. NEURO: Gross sensation intact - Neurological Exam Neurological Exam: Alert, Awake, Oriented x3 - Psychiatric Exam Psychiatric exam: Normal Affect, Normal Mood Assessment and Plan - Assessment and Plan (Free Text) Assessment: 77 y/o female patient presents with open ulceration to posterior aspect of right calf Plan: Patient was seen, evaluated at bedside Discussed in detail with attending Dr. Andrade Labs and vitals reviewed; afebrile, WBC 7.4 cont. IV abx as recommended Right lower extremity dressed with Mupirocin and DSD Wound does not appear clinically infected at this time Podiatry will continue to follow in house <Oneal Andrade - Last Filed: 06/19/17 12:47> Objective - Vital Signs/Intake and Output Vital Signs (last 24 hours): Temp Pulse Resp BP Pulse Ox 98.4 F 74 20 99/50 L 95 06/19/17 08:37 06/19/17 08:37 06/19/17 08:37 06/19/17 10:13 06/19/17 08:37 Intake and Output: 06/19/17 06/19/17 06:59 18:59 Intake Total 340 Balance 340 - Medications Medications: Current Medications Acetaminophen (Tylenol 325mg Tab) 650 mg PO Q6 PRN PRN Reason: Fever >100.4 F Aspirin (Aspirin Chewable) 81 mg PO DAILY [facility] Last Admin: 06/19/17 10:07 Dose: 81 mg Carvedilol (Coreg) 3.125 mg PO DAILY [facility] Last Admin: 06/19/17 10:13 Dose: Not Given Ciprofloxacin (Cipro) 500 mg PO BID [facility] Last Admin: 06/19/17 10:07 Dose: 500 mg Clopidogrel Bisulfate (Plavix) 75 mg PO DAILY [facility] Last Admin: 06/19/17 10:07 Dose: 75 mg Cyclobenzaprine HCl (Flexeril) 10 mg PO BID [facility] Last Admin: 06/19/17 10:07 Dose: 10 mg Ferrous Sulfate (Feosol) 325 mg PO DAILY [facility] Last Admin: 06/19/17 10:07 Dose: 325 mg Furosemide (Lasix) 40 mg PO DAILY [facility] Last Admin: 06/19/17 10:13 Dose: Not Given Gabapentin (Neurontin) 200 mg PO TID [facility] Last Admin: 06/19/17 10:07 Dose: 200 mg Ipratropium [place] (Atrovent Hfa) 2 puff IH BID [facility] Levothyroxine Sodium (Synthroid) 100 mcg PO DAILY@0630 [facility] Last Admin: 06/19/17 06:25 Dose: 100 mcg Morphine Sulfate (Morphine) 2 mg IVP Q4 PRN PRN Reason: Pain, severe (8-10) Last Admin: 06/18/17 21:12 Dose: 2 mg Mupirocin (Bactroban Ointment) 0 gm TOP BID [facility] Last Admin: 06/19/17 10:15 Dose: 1 applic Pantoprazole Sodium (Protonix Ec Tab) 40 mg PO DAILY [facility] Last Admin: 06/19/17 10:07 Dose: 40 mg Polyethylene Glycol (Miralax) 17 gm PO DAILY [facility] Psyllium Hydrophilic Mucilloid (Hydrocil Instant) 1 pkt PO BID [facility] Rosuvastatin Calcium (Crestor) 10 mg PO HS [facility] Last Admin: 06/18/17 21:12 Dose: 10 mg Tramadol HCl (Ultram) 25 mg PO TID PRN PRN Reason: Pain, moderate (4-7) Last Admin: 06/19/17 08:22 Dose: 25 mg Trolamine Salicylate (Aspercreme) 0 gm TOP TID [facility] Last Admin: 06/19/17 10:04 Dose: 85 gm - Labs Labs: 06/19/17 07:10 06/19/17 07:10 PT 14.3 SECONDS (9.7-12.2) H 06/13/17 12:53 INR 1.2 06/13/17 12:53 APTT 28 SECONDS (21-34) 06/13/17 12:53 Attending/Attestation - Attestation I have personally seen and examined this patient.: Yes I have fully participated in the care of the patient.: Yes I have reviewed all pertinent clinical information, including history, physical exam and plan: Yes
--- NOTE | 2017-06-19 13:25 | CP.PCM.PN ---
Subjective - Date & Time of Evaluation Date of Evaluation: 06/19/17 Time of Evaluation: 13:24 - Subjective Subjective: seen and examined labs reviewed renal US 06/14 no hydronephrosis or stones denies any nasuea vomiting diarrhea sob chest pain lornazines sheadache c/o neck pain Objective - Vital Signs/Intake and Output Vital Signs (last 24 hours): Temp Pulse Resp BP Pulse Ox 98.4 F 74 20 99/50 L 95 06/19/17 08:37 06/19/17 08:37 06/19/17 08:37 06/19/17 10:13 06/19/17 08:37 Intake and Output: 06/19/17 06/19/17 06:59 18:59 Intake Total 340 Balance 340 - Medications Medications: Current Medications Acetaminophen (Tylenol 325mg Tab) 650 mg PO Q6 PRN PRN Reason: Fever >100.4 F Aspirin (Aspirin Chewable) 81 mg PO DAILY [facility] Last Admin: 06/19/17 10:07 Dose: 81 mg Carvedilol (Coreg) 3.125 mg PO DAILY [facility] Last Admin: 06/19/17 10:13 Dose: Not Given Ciprofloxacin (Cipro) 500 mg PO BID [facility] Last Admin: 06/19/17 10:07 Dose: 500 mg Clopidogrel Bisulfate (Plavix) 75 mg PO DAILY [facility] Last Admin: 06/19/17 10:07 Dose: 75 mg Cyclobenzaprine HCl (Flexeril) 10 mg PO BID [facility] Last Admin: 06/19/17 10:07 Dose: 10 mg Ferrous Sulfate (Feosol) 325 mg PO DAILY [facility] Last Admin: 06/19/17 10:07 Dose: 325 mg Furosemide (Lasix) 40 mg PO DAILY [facility] Last Admin: 06/19/17 10:13 Dose: Not Given Gabapentin (Neurontin) 200 mg PO TID [facility] Last Admin: 06/19/17 10:07 Dose: 200 mg Ipratropium [place] (Atrovent Hfa) 2 puff IH BID [facility] Levothyroxine Sodium (Synthroid) 100 mcg PO DAILY@0630 [facility] Last Admin: 06/19/17 06:25 Dose: 100 mcg Morphine Sulfate (Morphine) 2 mg IVP Q4 PRN PRN Reason: Pain, severe (8-10) Last Admin: 06/18/17 21:12 Dose: 2 mg Mupirocin (Bactroban Ointment) 0 gm TOP BID [facility] Last Admin: 06/19/17 10:15 Dose: 1 applic Pantoprazole Sodium (Protonix Ec Tab) 40 mg PO DAILY [facility] Last Admin: 06/19/17 10:07 Dose: 40 mg Polyethylene Glycol (Miralax) 17 gm PO DAILY [facility] Psyllium Hydrophilic Mucilloid (Hydrocil Instant) 1 pkt PO BID [facility] Rosuvastatin Calcium (Crestor) 10 mg PO HS [facility] Last Admin: 06/18/17 21:12 Dose: 10 mg Tramadol HCl (Ultram) 25 mg PO TID PRN PRN Reason: Pain, moderate (4-7) Last Admin: 06/19/17 08:22 Dose: 25 mg Trolamine Salicylate (Aspercreme) 0 gm TOP TID [facility] Last Admin: 06/19/17 10:04 Dose: 85 gm - Labs Labs: 06/19/17 07:10 06/19/17 07:10 PT 14.3 SECONDS (9.7-12.2) H 06/13/17 12:53 INR 1.2 06/13/17 12:53 APTT 28 SECONDS (21-34) 06/13/17 12:53 - Constitutional Appears: No Acute Distress, Chronically Ill (obese) - Head Exam Head Exam: NORMAL INSPECTION - Eye Exam Eye Exam: Normal appearance, PERRL - ENT Exam ENT Exam: Mucous Membranes Moist, Normal Exam - Neck Exam Neck Exam: Normal Inspection - Respiratory Exam Respiratory Exam: Decreased Breath Sounds, NORMAL BREATHING PATTERN - Cardiovascular Exam Cardiovascular Exam: REGULAR RHYTHM, RRR - GI/Abdominal Exam GI & Abdominal Exam: Distended, Soft, Normal Bowel Sounds - Extremities Exam Extremities Exam: Pedal Edema Assessment and Plan (1) Acute renal failure Status: Acute (2) CHF (congestive heart failure) Status: Acute (3) CAD (coronary artery disease) Status: Acute (4) Cellulitis of right leg Status: Acute (5) Pulmonary hypertension Status: Acute - Assessment and Plan (Free Text) Assessment: continue to hold ACEI/ARB. maintain lasix rdaily chems
[2017-06-19 14:12] LABS: SQUAMOUS EPITHIAL < 1 /hpf (0-5); URINE BILIRUBIN NEGATIVE (NEGATIVE); URINE BLOOD 1+ (NEGATIVE); URINE CLARITY Hazy (Clear); URINE COLOR Amber (YELLOW); URINE GLUCOSE (UA) NORMAL (Normal); URINE LEUKOCYTE ESTERASE NEG Leu/uL (Negative); URINE NITRATE NEGATIVE (NEGATIVE); URINE PROTEIN NEGATIVE (NEGATIVE); URINE UROBILINOGEN NORMAL mg/dL (0.2-1.0)
[2017-06-19] MEDS: POLYETHYLENE GLYCOL 3350 17 GM/Dose PACKET PO SCH (15:00)
[2017-06-19] MEDS: Psyllium Packet PO SCH ×2 (15:09→22:31)
--- NOTE | 2017-06-19 17:24 | CP.PCM.PN ---
Subjective - Date & Time of Evaluation Date of Evaluation: 06/19/17 Time of Evaluation: 07:00 - Subjective Subjective: PGY1- Medicine Note- Dr. Garcia's Service Patient seen and examined at bedside and in no acute distress. Patient says she is still having neck spasms. Patient denies any shortness of breath, abdominal pain, nausea, vomiting, constipation, or diarrhea. Objective - Vital Signs/Intake and Output Vital Signs (last 24 hours): Temp Pulse Resp BP Pulse Ox 98.4 F 67 18 98/58 L 96 06/19/17 15:18 06/19/17 15:18 06/19/17 15:18 06/19/17 15:18 06/19/17 15:18 Intake and Output: 06/19/17 06/19/17 06:59 18:59 Intake Total 340 400 Output Total 300 Balance 340 100 - Medications Medications: Current Medications Acetaminophen (Tylenol 325mg Tab) 650 mg PO Q6 PRN PRN Reason: Fever >100.4 F Aspirin (Aspirin Chewable) 81 mg PO DAILY [facility] Last Admin: 06/19/17 10:07 Dose: 81 mg Carvedilol (Coreg) 3.125 mg PO DAILY [facility] Last Admin: 06/19/17 10:13 Dose: Not Given Ciprofloxacin (Cipro) 500 mg PO BID [facility] Last Admin: 06/19/17 10:07 Dose: 500 mg Clopidogrel Bisulfate (Plavix) 75 mg PO DAILY [facility] Last Admin: 06/19/17 10:07 Dose: 75 mg Cyclobenzaprine HCl (Flexeril) 10 mg PO BID [facility] Last Admin: 06/19/17 10:07 Dose: 10 mg Ferrous Sulfate (Feosol) 325 mg PO DAILY [facility] Last Admin: 06/19/17 10:07 Dose: 325 mg Furosemide (Lasix) 40 mg PO DAILY [facility] Last Admin: 06/19/17 10:13 Dose: Not Given Gabapentin (Neurontin) 200 mg PO TID [facility] Last Admin: 06/19/17 15:00 Dose: 200 mg Ipratropium [place] (Atrovent Hfa) 2 puff IH BID [facility] Levothyroxine Sodium (Synthroid) 100 mcg PO DAILY@0630 [facility] Last Admin: 06/19/17 06:25 Dose: 100 mcg Morphine Sulfate (Morphine) 2 mg IVP Q4 PRN PRN Reason: Pain, severe (8-10) Last Admin: 06/18/17 21:12 Dose: 2 mg Mupirocin (Bactroban Ointment) 0 gm TOP BID [facility] Last Admin: 06/19/17 10:15 Dose: 1 applic Pantoprazole Sodium (Protonix Ec Tab) 40 mg PO DAILY [facility] Last Admin: 06/19/17 10:07 Dose: 40 mg Polyethylene Glycol (Miralax) 17 gm PO DAILY [facility] Last Admin: 06/19/17 15:00 Dose: Not Given Psyllium Hydrophilic Mucilloid (Hydrocil Instant) 1 pkt PO BID [facility] Last Admin: 06/19/17 15:09 Dose: 1 pkt Rosuvastatin Calcium (Crestor) 10 mg PO HS [facility] Last Admin: 06/18/17 21:12 Dose: 10 mg Tramadol HCl (Ultram) 25 mg PO TID PRN PRN Reason: Pain, moderate (4-7) Last Admin: 06/19/17 08:22 Dose: 25 mg Trolamine Salicylate (Aspercreme) 0 gm TOP TID [facility] Last Admin: 06/19/17 15:00 Dose: 85 gm - Labs Labs: 06/19/17 07:10 06/19/17 07:10 PT 14.3 SECONDS (9.7-12.2) H 06/13/17 12:53 INR 1.2 06/13/17 12:53 APTT 28 SECONDS (21-34) 06/13/17 12:53 - Additional Findings Additional findings: - Constitutional Appears: Non-toxic, No Acute Distress - Head Exam Head Exam: ATRAUMATIC, NORMAL INSPECTION, NORMOCEPHALIC - Eye Exam Eye Exam: EOMI, Normal appearance - ENT Exam ENT Exam: Mucous Membranes Moist - Respiratory Exam Respiratory Exam: Clear to Ausculation Bilateral, NORMAL BREATHING PATTERN - Cardiovascular Exam Cardiovascular Exam: REGULAR RHYTHM, RRR, +S1, +S2 - GI/Abdominal Exam GI & Abdominal Exam: Soft, Normal Bowel Sounds. absent: Tenderness - Extremities Exam Extremities Exam: Normal Inspection, Tenderness. absent: Full ROM (pain with movement), Pedal Edema - Neurological Exam Neurological Exam: Alert, Awake, Oriented x3 - Psychiatric Exam Psychiatric exam: Normal Affect, Normal Mood - Skin Skin Exam: Intact, Normal Color, Warm Assessment and Plan - Assessment and Plan (Free Text) Assessment: Acute on Chronic SYSTOLIC CHF exacerbation Improving c/o SOB on exertion BNP 4500,Cardiac Catheterization in 03/2016 showed EF 25-30% CXR: pulmonary venous congestion vs vascular crowding due to hypo-inflation. Borderline cardiomyopathy Continue Carvedilol 3.125,Continue Cozaar 25mg PO daily,Lasix 40mg IVP Qam, Lasix 20mg IVP Qpm Daily weights, Strict I/Os,Supplemental O2 prn ECHO done -EF 35% s/p ^ beats on VT d/w Dr Bautista 07/16 ,pending MUGA scan if EF <35 will need life vest or ICD eval as an outpatient * MUGA scan unable to be done because patient unable to be in proper positioning due to pain Lasix held today due to increasing LFTs, resume tomorrow Bilateral Lower Extremity Pain, Idiopathic Peripheral neuropathy Lower extremity dopplers negative for DVT,Pain contol Ultram 25mg Q8H prn pain Gabapentin 200mg TID (Home dose lowered due to CKD) Decline in ambulation and leg pain with hypersensitivity -PT/OT and rehab Fever afebrile for 24 hours r/o infectious process Cxray to r/o pneumonia 06/18/17: mild venous congestion with cardiomegaly blood cultures- negative after 24 hours 06/19/17 UA: 1+blood, 11-20 casts f/u UC Severe Coronary Artery Disease s/p stent placement Last stent was placed in [address] Kaur at [facility] continue aspirin and plavix Anemia likely due to Iron deficiency/CRF -Iron<10, TIBC: 223, %Sat 4.5, B12: 612, Folate >20 iron infusion contraindicated due to possible infectious process Feosol 325mg po daily Right Lower Extremity Healing Wound Wound care consulted,Podiatry consulted, help appreciated Cipro 500mg po BID Chronic Kidney Disease increasing, Lasix held on 06/19/17, resume tomorrow Avoid nephrotoxic medications,monitor creatinine on lasix, Lasix decreased to 40mg daily due to increasing BUN/Cr -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 ; right upper pole renal cyst 7.1cm -renal u/s: 7.7 x 7.0 x 7.3 cm right upper pole renal cyst d/w DR Meredith Hypertension Carvedilol 3.125mg PO daily Cozaar 25mg PO daily stopped on 06/18/17 due to increasing BUN/Cr Hypothyroidism Levothyroxine 100mcg daily Hyperlipdemia Crestor 10 mg po HS Neck stiffness pain meds increased flexeril to 10 mg po BID 1gm Magnesium given Hepatitis C no known risk factors repeat Hep C antibody f/u Hep C viral load Constipation Miralax Metamucil Prophylactic Measure -Protonix 40mg PO daily -Heparin 5000U Q8H -Heart Healthy Diet, Salt restricted Plan discussed with Dr. Garcia
--- NOTE | 2017-06-20 00:21 | CP.PCM.PN ---
Subjective - Date & Time of Evaluation Date of Evaluation: 06/19/17 Time of Evaluation: 11:00 - Subjective Subjective: Patient seen and evaluated Denies chest pain and dyspnea Systolic CHF CAD No cardiac symptoms at present ICD eval as out patient Objective - Vital Signs/Intake and Output Vital Signs (last 24 hours): Temp Pulse Resp BP Pulse Ox 98.4 F 80 18 98/58 L 96 06/19/17 15:18 06/20/17 00:01 06/19/17 15:18 06/19/17 15:18 06/19/17 15:18 Intake and Output: 06/19/17 06/20/17 18:59 06:59 Intake Total 400 Output Total 300 Balance 100 - Medications Medications: Current Medications Acetaminophen (Tylenol 325mg Tab) 650 mg PO Q6 PRN PRN Reason: Fever >100.4 F Aspirin (Aspirin Chewable) 81 mg PO DAILY [facility] Last Admin: 06/19/17 10:07 Dose: 81 mg Carvedilol (Coreg) 3.125 mg PO DAILY [facility] Last Admin: 06/19/17 10:13 Dose: Not Given Ciprofloxacin (Cipro) 500 mg PO BID [facility] Last Admin: 06/19/17 18:09 Dose: 500 mg Clopidogrel Bisulfate (Plavix) 75 mg PO DAILY [facility] Last Admin: 06/19/17 10:07 Dose: 75 mg Cyclobenzaprine HCl (Flexeril) 10 mg PO BID [facility] Last Admin: 06/19/17 18:10 Dose: 10 mg Ferrous Sulfate (Feosol) 325 mg PO DAILY [facility] Last Admin: 06/19/17 10:07 Dose: 325 mg Furosemide (Lasix) 40 mg PO DAILY [facility] Last Admin: 06/19/17 10:13 Dose: Not Given Gabapentin (Neurontin) 200 mg PO TID [facility] Last Admin: 06/19/17 18:10 Dose: 200 mg Ipratropium [place] (Atrovent Hfa) 2 puff IH RBID [facility] Levothyroxine Sodium (Synthroid) 100 mcg PO DAILY@0630 [facility] Last Admin: 06/19/17 06:25 Dose: 100 mcg Morphine Sulfate (Morphine) 2 mg IVP Q4 PRN PRN Reason: Pain, severe (8-10) Last Admin: 06/18/17 21:12 Dose: 2 mg Mupirocin (Bactroban Ointment) 0 gm TOP BID [facility] Last Admin: 06/19/17 18:10 Dose: 1 applic Pantoprazole Sodium (Protonix Ec Tab) 40 mg PO DAILY [facility] Last Admin: 06/19/17 10:07 Dose: 40 mg Polyethylene Glycol (Miralax) 17 gm PO DAILY [facility] Last Admin: 06/19/17 15:00 Dose: Not Given Psyllium Hydrophilic Mucilloid (Hydrocil Instant) 1 pkt PO BID [facility] Last Admin: 06/19/17 22:31 Dose: 1 pkt Rosuvastatin Calcium (Crestor) 10 mg PO HS [facility] Last Admin: 06/19/17 22:26 Dose: 10 mg Tramadol HCl (Ultram) 25 mg PO TID PRN PRN Reason: Pain, moderate (4-7) Last Admin: 06/19/17 08:22 Dose: 25 mg Trolamine Salicylate (Aspercreme) 0 gm TOP TID [facility] Last Admin: 06/19/17 18:09 Dose: 85 gm - Labs Labs: 06/19/17 07:10 06/19/17 07:10 PT 14.3 SECONDS (9.7-12.2) H 06/13/17 12:53 INR 1.2 06/13/17 12:53 APTT 28 SECONDS (21-34) 06/13/17 12:53
[2017-06-20] MEDS: Levothyroxine 100 MCG TAB PO SCH (06:18)
[2017-06-20] MEDS: Tramadol 25 mg PO PRN (06:33)
[2017-06-20] MEDS: Ipratropium 17 mcg/puff-200 puff/12.5 gm HFA Inh IH SCH (07:25)
[2017-06-20 07:26] LABS: BASO % 0.5 % (0.0-2.0); EOS # 0.1 K/uL (0.0-0.7); EOS % 1.9 % (0.0-4.0); HEMOGLOBIN 8.4 g/dL (11.0-16.0); LYMPH % 13.5 % (20.0-40.0); MEAN CELL VOLUME 89.8 fL (81.0-99.0); MEAN CORPUSCULAR HEMOGLOBIN 29.9 pg (27.0-31.0); MEAN CORPUSCULAR HGB CONC 33.3 g/dL (33.0-37.0); MEAN PLATELET VOLUME 7.6 fL (7.2-11.7); MONO # 0.6 K/uL (0.0-0.8); MONO % 8.4 % (0.0-10.0); NEUT # 5.7 K/uL (1.8-7.0); NEUT % 75.7 % (50.0-75.0); RBC 2.82 Mil/uL (3.80-5.20); RED CELL DISTRIBUTION WIDTH 15.5 % (11.5-14.5); WHITE BLOOD COUNT 7.5 K/uL (4.8-10.8)
[2017-06-20 08:01] LABS: ALB/GLOB RATIO 0.8 (1.0-2.1); ALBUMIN 2.8 g/dL (3.5-5.0); CALCIUM 7.6 mg/dl (8.6-10.4); MAGNESIUM 2.1 mg/dL (1.6-2.3)
--- NOTE | 2017-06-20 09:55 | CP.PCM.PN ---
Subjective - Date & Time of Evaluation Date of Evaluation: 06/20/17 Time of Evaluation: 07:00 - Subjective Subjective: PGY1-Medicine Note- Dr. Garcia's Service Patient seen and examined at bedside and in no acute distress. Patient says she is still having neck spasms. Patient denies any shortness of breath, abdominal pain, nausea, vomiting. Patient admits to constipation. Objective - Vital Signs/Intake and Output Vital Signs (last 24 hours): Temp Pulse Resp BP Pulse Ox 98.8 F 65 20 100/57 L 98 06/20/17 08:30 06/20/17 08:22 06/20/17 07:00 06/20/17 07:00 06/20/17 07:00 Intake and Output: 06/20/17 06/20/17 06:59 18:59 Intake Total 510 Output Total 175 Balance 335 - Medications Medications: Current Medications Acetaminophen (Tylenol 325mg Tab) 650 mg PO Q6 PRN PRN Reason: Fever >100.4 F Aspirin (Aspirin Chewable) 81 mg PO DAILY [facility] Last Admin: 06/19/17 10:07 Dose: 81 mg Carvedilol (Coreg) 3.125 mg PO DAILY [facility] Last Admin: 06/19/17 10:13 Dose: Not Given Ciprofloxacin (Cipro) 500 mg PO BID [facility] Last Admin: 06/19/17 18:09 Dose: 500 mg Clopidogrel Bisulfate (Plavix) 75 mg PO DAILY [facility] Last Admin: 06/19/17 10:07 Dose: 75 mg Cyclobenzaprine HCl (Flexeril) 10 mg PO BID [facility] Last Admin: 06/19/17 18:10 Dose: 10 mg Ferrous Sulfate (Feosol) 325 mg PO DAILY [facility] Last Admin: 06/19/17 10:07 Dose: 325 mg Furosemide (Lasix) 40 mg PO DAILY [facility] Last Admin: 06/19/17 10:13 Dose: Not Given Gabapentin (Neurontin) 200 mg PO TID [facility] Last Admin: 06/19/17 18:10 Dose: 200 mg Ipratropium [place] (Atrovent Hfa) 2 puff IH RBID [facility] Last Admin: 06/20/17 07:25 Dose: Not Given Levothyroxine Sodium (Synthroid) 100 mcg PO DAILY@0630 [facility] Last Admin: 06/20/17 06:18 Dose: 100 mcg Morphine Sulfate (Morphine) 2 mg IVP Q4 PRN PRN Reason: Pain, severe (8-10) Last Admin: 06/18/17 21:12 Dose: 2 mg Mupirocin (Bactroban Ointment) 0 gm TOP BID [facility] Last Admin: 06/19/17 18:10 Dose: 1 applic Pantoprazole Sodium (Protonix Ec Tab) 40 mg PO DAILY [facility] Last Admin: 06/19/17 10:07 Dose: 40 mg Polyethylene Glycol (Miralax) 17 gm PO DAILY [facility] Last Admin: 06/19/17 15:00 Dose: Not Given Psyllium Hydrophilic Mucilloid (Hydrocil Instant) 1 pkt PO BID [facility] Last Admin: 06/19/17 22:31 Dose: 1 pkt Rosuvastatin Calcium (Crestor) 10 mg PO HS [facility] Last Admin: 06/19/17 22:26 Dose: 10 mg Tramadol HCl (Ultram) 25 mg PO TID PRN PRN Reason: Pain, moderate (4-7) Last Admin: 06/20/17 06:33 Dose: 25 mg Trolamine Salicylate (Aspercreme) 0 gm TOP TID [facility] Last Admin: 06/19/17 18:09 Dose: 85 gm - Labs Labs: 06/20/17 07:12 06/20/17 07:12 PT 14.3 SECONDS (9.7-12.2) H 06/13/17 12:53 INR 1.2 06/13/17 12:53 APTT 28 SECONDS (21-34) 06/13/17 12:53 - Additional Findings Additional findings: - Constitutional Appears: Non-toxic, No Acute Distress - Head Exam Head Exam: ATRAUMATIC, NORMAL INSPECTION, NORMOCEPHALIC - Eye Exam Eye Exam: EOMI, Normal appearance - ENT Exam ENT Exam: Mucous Membranes Moist - Respiratory Exam Respiratory Exam: Clear to Ausculation Bilateral, NORMAL BREATHING PATTERN - Cardiovascular Exam Cardiovascular Exam: REGULAR RHYTHM, RRR, +S1, +S2 - GI/Abdominal Exam GI & Abdominal Exam: Soft, Normal Bowel Sounds. absent: Tenderness - Extremities Exam Extremities Exam: Normal Inspection, Tenderness. absent: Full ROM (pain with movement), Pedal Edema - Neurological Exam Neurological Exam: Alert, Awake, Oriented x3 - Psychiatric Exam Psychiatric exam: Normal Affect, Normal Mood - Skin Skin Exam: Intact, Normal Color, Warm Assessment and Plan - Assessment and Plan (Free Text) Assessment: Acute on Chronic SYSTOLIC CHF exacerbation Improving c/o SOB on exertion BNP 4500,Cardiac Catheterization in 03/2016 showed EF 25-30% CXR: pulmonary venous congestion vs vascular crowding due to hypo-inflation. Borderline cardiomyopathy Continue Carvedilol 3.125,ASA 81mg po daily, Continue Cozaar 25mg PO daily, Lasix 40mg IVP Qam, Lasix 20mg IVP Qpm Daily weights, Strict I/Os,Supplemental O2 prn ECHO done -EF 35% s/p ^ beats on VT d/w Dr Bautista 07/16 ,pending MUGA scan if EF <35 will need life vest or ICD eval as an outpatient * MUGA scan unable to be done because patient unable to be in proper positioning due to pain Lasix held today due to increasing LFTs, resume tomorrow Bilateral Lower Extremity Pain, Idiopathic Peripheral neuropathy Lower extremity dopplers negative for DVT,Pain contol Ultram 25mg Q8H prn pain Gabapentin 200mg TID (Home dose lowered due to CKD) Decline in ambulation and leg pain with hypersensitivity -PT/OT and rehab Fever 100.1 fever this am r/o infectious process Cxray to r/o pneumonia 06/18/17: mild venous congestion with cardiomegaly blood cultures- negative after 24 hours 06/19/17 UA: 1+blood, 11-20 casts f/u UC Severe Coronary Artery Disease s/p stent placement Last stent [place] placed [place] [address] Kaur at [place] continue aspirin and plavix Anemia likely due to Iron deficiency/CRF -Iron<10, TIBC: 223, %Sat 4.5, B12: 612, Folate >20 iron infusion contraindicated due to possible infectious process Feosol 325mg po daily Right Lower Extremity Healing Wound Wound care consulted,Podiatry consulted, help appreciated Cipro stopped on 06/20 TEO on Chronic Kidney Disease increasing BUN/Cr, Lasix stopped as Dr. 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 ; right upper pole renal cyst 7.1cm -renal u/s: 7.7 x 7.0 x 7.3 cm right upper pole renal cyst d/w DR Meredith evaluate for AIN - Urine eos, serial chemistries Urinary Retention bladder scan PRN and straight cath Hypertension Carvedilol 3.125mg PO daily Cozaar 25mg PO daily stopped on 06/18/17 due to increasing BUN/Cr Hypothyroidism Levothyroxine 100mcg daily Hyperlipdemia Crestor 10 mg po HS Neck stiffness pain meds increased flexeril to 10 mg po BID 1gm Magnesium given Hepatitis C Negative original lab said reactive in error repeat Hep C antibody : negative f/u Hep C viral load Constipation continue Miralax and Metamucil Prophylactic Measure -Protonix 40mg PO daily -Heparin 5000U Q8H -Heart Healthy Diet, Salt restricted Plan discussed with Dr. Garcia
[2017-06-20] MEDS: Psyllium Packet PO SCH ×2 (10:54→17:53)
[2017-06-20] MEDS: Pantoprazole 40 mg EC Tab PO SCH (10:54)
[2017-06-20] MEDS: POLYETHYLENE GLYCOL 3350 17 GM/Dose PACKET PO SCH ×2 (10:54→10:55)
[2017-06-20] MEDS: Trolamine Salicylate 10% Cream (85 gm) TOP SCH ×3 (10:54→17:51)
[2017-06-20] MEDS ORDERED: Dexamethasone 4 mg/1 ml IVP STA (12:02)
--- NOTE | 2017-06-20 12:20 | CP.PCM.PN ---
Subjective - Date & Time of Evaluation Date of Evaluation: 06/20/17 Time of Evaluation: 12:18 - Subjective Subjective: Podiatry note for Dr. Andrade 77 year old female patient was seen at bedside this afternoon for ulceration to posterior right leg. Patient resting comfortably in bed at time of visit. Patient is AAOx3, NAD. Patient still complains of severe pain to entire right lower extremity distal to knee, and says its painful to elevate the leg or foot. Patient denies F/C/N/V/SOB today Objective - Vital Signs/Intake and Output Vital Signs (last 24 hours): Temp Pulse Resp BP Pulse Ox 98.8 F 65 20 99/58 L 98 06/20/17 08:30 06/20/17 08:22 06/20/17 07:00 06/20/17 10:55 06/20/17 07:00 Intake and Output: 06/20/17 06/20/17 06:59 18:59 Intake Total 510 Output Total 175 Balance 335 - Medications Medications: Current Medications Acetaminophen (Tylenol 325mg Tab) 650 mg PO Q6 PRN PRN Reason: Fever >100.4 F Albuterol/Ipratropium (Duoneb 3 Mg/0.5 Mg (3 Ml) Ud) 3 ml INH RBID [facility] Aspirin (Aspirin Chewable) 81 mg PO DAILY [facility] Last Admin: 06/20/17 10:54 Dose: 81 mg Carvedilol (Coreg) 3.125 mg PO DAILY [facility] Last Admin: 06/20/17 11:32 Dose: 3.125 mg Ciprofloxacin (Cipro) 500 mg PO BID [facility] Last Admin: 06/20/17 10:53 Dose: 500 mg Clopidogrel Bisulfate (Plavix) 75 mg PO DAILY [facility] Last Admin: 06/20/17 10:54 Dose: 75 mg Cyclobenzaprine HCl (Flexeril) 10 mg PO BID [facility] Last Admin: 06/20/17 10:54 Dose: 10 mg Ferrous Sulfate (Feosol) 325 mg PO DAILY [facility] Last Admin: 06/20/17 10:53 Dose: 325 mg Furosemide (Lasix) 40 mg PO DAILY [facility] Last Admin: 06/20/17 10:55 Dose: Not Given Gabapentin (Neurontin) 200 mg PO TID [facility] Last Admin: 06/20/17 10:53 Dose: 200 mg Ipratropium [place] (Atrovent Hfa) 2 puff IH RBID [facility] Last Admin: 06/20/17 07:25 Dose: Not Given Levothyroxine Sodium (Synthroid) 100 mcg PO DAILY@0630 [facility] Last Admin: 06/20/17 06:18 Dose: 100 mcg Morphine Sulfate (Morphine) 2 mg IVP Q4 PRN PRN Reason: Pain, severe (8-10) Last Admin: 06/18/17 21:12 Dose: 2 mg Mupirocin (Bactroban Ointment) 0 gm TOP BID [facility] Last Admin: 06/20/17 10:54 Dose: 1 applic Pantoprazole Sodium (Protonix Ec Tab) 40 mg PO DAILY [facility] Last Admin: 06/20/17 10:54 Dose: 40 mg Polyethylene Glycol (Miralax) 17 gm PO DAILY [facility] Last Admin: 06/20/17 10:55 Dose: Not Given Psyllium Hydrophilic Mucilloid (Hydrocil Instant) 1 pkt PO BID [facility] Last Admin: 06/20/17 10:54 Dose: 1 pkt Rosuvastatin Calcium (Crestor) 10 mg PO HS [facility] Last Admin: 06/19/17 22:26 Dose: 10 mg Tramadol HCl (Ultram) 25 mg PO TID PRN PRN Reason: Pain, moderate (4-7) Last Admin: 06/20/17 06:33 Dose: 25 mg Trolamine Salicylate (Aspercreme) 0 gm TOP TID [facility] Last Admin: 06/20/17 10:54 Dose: 85 gm - Labs Labs: 06/20/17 07:12 06/20/17 07:12 PT 14.3 SECONDS (9.7-12.2) H 06/13/17 12:53 INR 1.2 06/13/17 12:53 APTT 28 SECONDS (21-34) 06/13/17 12:53 - Constitutional Appears: Well, Non-toxic, No Acute Distress - Extremities Exam Additional comments: Right lower extremity exam DERM: Open wound noted to posterior aspect of right mid leg measuring 2.5cm x 1cm x 0.3cm with mixed granular and fibrotic base. Mild drainage, no malodor, no fluctuance noted. No erythema noted to wound periphery. No probe to bone noted. VASC: +2 lower extremity edema. DP/PT palpable 2/4. CFT<3 sec to all digits ORTHO: Pain on palpation to right lower extremity extending distally from knee to digits. NEURO: Gross sensation intact - Neurological Exam Neurological Exam: Alert, Awake, Oriented x3 - Psychiatric Exam Psychiatric exam: Normal Affect, Normal Mood Assessment and Plan - Assessment and Plan (Free Text) Assessment: 77 y/o female patient presents with open ulceration to posterior aspect of right calf Plan: Patient was seen, evaluated at bedside Discussed in detail with attending Dr. Andrade Labs and vitals reviewed; afebrile, WBC 7.5 cont. IV abx as recommended Right lower extremity dressed with Mupirocin and DSD Wound does not appear clinically infected at this time Podiatry will continue to follow in house
--- NOTE | 2017-06-20 14:01 | CP.PCM.PN ---
Subjective - Date & Time of Evaluation Date of Evaluation: 06/20/17 Time of Evaluation: 13:58 - Subjective Subjective: Same severe neck pains c/o vague weakness not dyspneic, no nausea, vomiting, fevers, chills Objective - Vital Signs/Intake and Output Vital Signs (last 24 hours): Temp Pulse Resp BP Pulse Ox 98.8 F 65 20 99/58 L 98 06/20/17 08:30 06/20/17 08:22 06/20/17 07:00 06/20/17 10:55 06/20/17 07:00 Intake and Output: 06/20/17 06/20/17 06:59 18:59 Intake Total 510 Output Total 175 Balance 335 - Medications Medications: Current Medications Acetaminophen (Tylenol 325mg Tab) 650 mg PO Q6 PRN PRN Reason: Fever >100.4 F Albuterol/Ipratropium (Duoneb 3 Mg/0.5 Mg (3 Ml) Ud) 3 ml INH RBID [facility] Aspirin (Aspirin Chewable) 81 mg PO DAILY [facility] Last Admin: 06/20/17 10:54 Dose: 81 mg Carvedilol (Coreg) 3.125 mg PO DAILY [facility] Last Admin: 06/20/17 11:32 Dose: 3.125 mg Ciprofloxacin (Cipro) 500 mg PO BID [facility] Last Admin: 06/20/17 10:53 Dose: 500 mg Clopidogrel Bisulfate (Plavix) 75 mg PO DAILY [facility] Last Admin: 06/20/17 10:54 Dose: 75 mg Cyclobenzaprine HCl (Flexeril) 10 mg PO BID [facility] Last Admin: 06/20/17 10:54 Dose: 10 mg Ferrous Sulfate (Feosol) 325 mg PO DAILY [facility] Last Admin: 06/20/17 10:53 Dose: 325 mg Furosemide (Lasix) 40 mg PO DAILY [facility] Last Admin: 06/20/17 10:55 Dose: Not Given Gabapentin (Neurontin) 200 mg PO TID [facility] Last Admin: 06/20/17 10:53 Dose: 200 mg Ipratropium [place] (Atrovent Hfa) 2 puff IH RBID [facility] Last Admin: 06/20/17 07:25 Dose: Not Given Levothyroxine Sodium (Synthroid) 100 mcg PO DAILY@0630 [facility] Last Admin: 06/20/17 06:18 Dose: 100 mcg Morphine Sulfate (Morphine) 2 mg IVP Q4 PRN PRN Reason: Pain, severe (8-10) Last Admin: 06/18/17 21:12 Dose: 2 mg Mupirocin (Bactroban Ointment) 0 gm TOP BID [facility] Last Admin: 06/20/17 10:54 Dose: 1 applic Pantoprazole Sodium (Protonix Ec Tab) 40 mg PO DAILY [facility] Last Admin: 06/20/17 10:54 Dose: 40 mg Polyethylene Glycol (Miralax) 17 gm PO DAILY [facility] Last Admin: 06/20/17 10:55 Dose: Not Given Psyllium Hydrophilic Mucilloid (Hydrocil Instant) 1 pkt PO BID [facility] Last Admin: 06/20/17 10:54 Dose: 1 pkt Rosuvastatin Calcium (Crestor) 10 mg PO HS [facility] Last Admin: 06/19/17 22:26 Dose: 10 mg Tramadol HCl (Ultram) 25 mg PO TID PRN PRN Reason: Pain, moderate (4-7) Last Admin: 06/20/17 06:33 Dose: 25 mg Trolamine Salicylate (Aspercreme) 0 gm TOP TID [facility] Last Admin: 06/20/17 10:54 Dose: 85 gm - Labs Labs: 06/20/17 07:12 06/20/17 07:12 PT 14.3 SECONDS (9.7-12.2) H 06/13/17 12:53 INR 1.2 06/13/17 12:53 APTT 28 SECONDS (21-34) 06/13/17 12:53 - Constitutional Appears: No Acute Distress, Chronically Ill - Head Exam Head Exam: ATRAUMATIC, NORMAL INSPECTION - Eye Exam Eye Exam: EOMI, Normal appearance - Neck Exam Neck Exam: Normal Inspection. absent: Tenderness - Cardiovascular Exam Cardiovascular Exam: REGULAR RHYTHM, +S1 - GI/Abdominal Exam GI & Abdominal Exam: Soft. absent: Tenderness - Extremities Exam Extremities Exam: Normal Inspection. absent: Tenderness - Neurological Exam Neurological Exam: Awake, CN II-XII Intact - Skin Skin Exam: Dry, Warm Assessment and Plan (1) CHF (congestive heart failure) Status: Acute (2) Iron deficiency anemia Status: Acute (3) CAD (coronary artery disease) Status: Acute (4) Cellulitis of right leg Status: Acute - Assessment and Plan (Free Text) Assessment: TEO CKD hx evaluate for AIN Plan: Ueos stop lasix serial chemistries change AB use
[2017-06-20] MEDS ORDERED: Sodium Chloride 0.9% 500 ML IV ONE (16:03)
[2017-06-21 00:41] VITALS: RESP 20
--- NOTE | 2017-06-21 01:07 | CP.PCM.PN ---
Subjective - Date & Time of Evaluation Date of Evaluation: 06/20/17 Time of Evaluation: 08:05 Objective - Vital Signs/Intake and Output Vital Signs (last 24 hours): Temp Pulse Resp BP Pulse Ox 97 F L 67 20 101/56 L 96 06/20/17 23:10 06/20/17 23:10 06/20/17 23:10 06/20/17 23:10 06/20/17 23:10 Intake and Output: 06/20/17 06/21/17 18:59 06:59 Intake Total 480 Balance 480 - Medications Medications: Current Medications Acetaminophen (Tylenol 325mg Tab) 650 mg PO Q6 PRN PRN Reason: Fever >100.4 F Albuterol/Ipratropium (Duoneb 3 Mg/0.5 Mg (3 Ml) Ud) 3 ml INH RBID [facility] Aspirin (Aspirin Chewable) 81 mg PO DAILY [facility] Last Admin: 06/20/17 10:54 Dose: 81 mg Carvedilol (Coreg) 3.125 mg PO DAILY [facility] Last Admin: 06/20/17 11:32 Dose: 3.125 mg Clopidogrel Bisulfate (Plavix) 75 mg PO DAILY [facility] Last Admin: 06/20/17 10:54 Dose: 75 mg Cyclobenzaprine HCl (Flexeril) 10 mg PO BID [facility] Last Admin: 06/20/17 17:50 Dose: 10 mg Ferrous Sulfate (Feosol) 325 mg PO DAILY [facility] Last Admin: 06/20/17 10:53 Dose: 325 mg Gabapentin (Neurontin) 200 mg PO TID [facility] Last Admin: 06/20/17 17:50 Dose: 200 mg Heparin Sodium (Porcine) (Heparin) 5,000 units SC Q8 [facility] Last Admin: 06/20/17 21:31 Dose: 5,000 units Sodium Chloride (Sodium Chloride 0.9%) 500 mls @ 40 mls/hr IV .[id number] ONE Stop: 06/21/17 04:32 Last Admin: 06/20/17 17:00 Dose: 40 mls/hr Ipratropium [place] (Atrovent Hfa) 2 puff IH RBID [facility] Last Admin: 06/20/17 07:25 Dose: Not Given Levothyroxine Sodium (Synthroid) 100 mcg PO DAILY@0630 [facility] Last Admin: 06/20/17 06:18 Dose: 100 mcg Morphine Sulfate (Morphine) 2 mg IVP Q4 PRN PRN Reason: Pain, severe (8-10) Last Admin: 06/21/17 00:39 Dose: 2 mg Mupirocin (Bactroban Ointment) 0 gm TOP BID [facility] Last Admin: 06/20/17 17:52 Dose: 1 applic Pantoprazole Sodium (Protonix Ec Tab) 40 mg PO DAILY [facility] Last Admin: 06/20/17 10:54 Dose: 40 mg Polyethylene Glycol (Miralax) 17 gm PO DAILY [facility] Last Admin: 06/20/17 10:55 Dose: Not Given Psyllium Hydrophilic Mucilloid (Hydrocil Instant) 1 pkt PO BID [facility] Last Admin: 06/20/17 17:53 Dose: Not Given Rosuvastatin Calcium (Crestor) 10 mg PO HS [facility] Last Admin: 06/20/17 21:31 Dose: 10 mg Tramadol HCl (Ultram) 25 mg PO TID PRN PRN Reason: Pain, moderate (4-7) Last Admin: 06/20/17 06:33 Dose: 25 mg Trolamine Salicylate (Aspercreme) 0 gm TOP TID [facility] Last Admin: 06/20/17 17:51 Dose: 85 gm - Labs Labs: 06/20/17 07:12 06/20/17 07:12 PT 14.3 SECONDS (9.7-12.2) H 06/13/17 12:53 INR 1.2 06/13/17 12:53 APTT 30 SECONDS (21-34) 06/20/17 20:16
[2017-06-21] MEDS: Levothyroxine 100 MCG TAB PO SCH (06:37)
[2017-06-21 07:03] LABS: BASO % 0.3 % (0.0-2.0); EOS % 0.1 % (0.0-4.0); HEMOGLOBIN 8.4 g/dL (11.0-16.0); LYMPH # 0.5 K/uL (1.0-4.3); LYMPH % 11.4 % (20.0-40.0); MEAN CELL VOLUME 90.7 fL (81.0-99.0); MEAN CORPUSCULAR HEMOGLOBIN 28.8 pg (27.0-31.0); MEAN CORPUSCULAR HGB CONC 31.8 g/dL (33.0-37.0); MEAN PLATELET VOLUME 7.8 fL (7.2-11.7); MONO # 0.3 K/uL (0.0-0.8); MONO % 6.2 % (0.0-10.0); NEUT # 3.9 K/uL (1.8-7.0); NRBC % 0.1 % (0.0-2.0); RBC 2.9 Mil/uL (3.80-5.20); RED CELL DISTRIBUTION WIDTH 15.4 % (11.5-14.5); WHITE BLOOD COUNT 4.8 K/uL (4.8-10.8)
[2017-06-21 08:35] LABS: ALB/GLOB RATIO 0.8 (1.0-2.1); ALBUMIN 2.8 g/dL (3.5-5.0); CALCIUM 7.8 mg/dl (8.6-10.4); MAGNESIUM 2.3 mg/dL (1.6-2.3)
[2017-06-21] MEDS: Ipratropium 17 mcg/puff-200 puff/12.5 gm HFA Inh IH SCH ×2 (08:36→21:19)
[2017-06-21] MEDS: Albuterol-Ipratrop 3 mg / 0.5 (3 ml) UD INH SCH ×2 (08:36→21:19)
[2017-06-21] MEDS: Trolamine Salicylate 10% Cream (85 gm) TOP SCH ×3 (09:26→17:44)
[2017-06-21] MEDS: POLYETHYLENE GLYCOL 3350 17 GM/Dose PACKET PO SCH (09:26)
[2017-06-21] MEDS: Pantoprazole 40 mg EC Tab PO SCH (09:26)
[2017-06-21] MEDS: Psyllium Packet PO SCH ×2 (09:26→17:45)
--- NOTE | 2017-06-21 10:07 | CP.PCM.PN ---
Subjective - Date & Time of Evaluation Date of Evaluation: 06/21/17 Time of Evaluation: 10:04 - Subjective Subjective: Feels same; still lehargic UO adequate as per pt Creat decreasing now- 2.7 Ueos not done yet Off lasix,cipro due to TEO Objective - Vital Signs/Intake and Output Vital Signs (last 24 hours): Temp Pulse Resp BP Pulse Ox 97.2 F L 54 L 20 109/65 96 06/21/17 07:58 06/21/17 09:25 06/21/17 07:58 06/21/17 09:25 06/21/17 07:58 Intake and Output: 06/21/17 06/21/17 06:59 18:59 Intake Total 920 Balance 920 - Medications Medications: Current Medications Acetaminophen (Tylenol 325mg Tab) 650 mg PO Q6 PRN PRN Reason: Fever >100.4 F Albuterol/Ipratropium (Duoneb 3 Mg/0.5 Mg (3 Ml) Ud) 3 ml INH RBID [facility] Last Admin: 06/21/17 08:36 Dose: Not Given Aspirin (Aspirin Chewable) 81 mg PO DAILY [facility] Last Admin: 06/21/17 09:26 Dose: 81 mg Carvedilol (Coreg) 3.125 mg PO DAILY [facility] Last Admin: 06/21/17 09:26 Dose: 3.125 mg Clopidogrel Bisulfate (Plavix) 75 mg PO DAILY [facility] Last Admin: 06/21/17 09:26 Dose: 75 mg Cyclobenzaprine HCl (Flexeril) 10 mg PO BID [facility] Last Admin: 06/21/17 09:26 Dose: 10 mg Docusate Sodium (Colace) 100 mg PO TID [facility] Ferrous Sulfate (Feosol) 325 mg PO DAILY [facility] Last Admin: 06/21/17 09:26 Dose: 325 mg Gabapentin (Neurontin) 200 mg PO TID [facility] Last Admin: 06/21/17 09:26 Dose: 200 mg Heparin Sodium (Porcine) (Heparin) 5,000 units SC Q8 [facility] Last Admin: 06/21/17 06:37 Dose: 5,000 units Ipratropium [place] (Atrovent Hfa) 2 puff IH RBID [facility] Last Admin: 06/21/17 08:36 Dose: Not Given Levothyroxine Sodium (Synthroid) 100 mcg PO DAILY@0630 [facility] Last Admin: 06/21/17 06:37 Dose: 100 mcg Morphine Sulfate (Morphine) 1 mg IVP Q4 PRN PRN Reason: Pain, severe (8-10) Mupirocin (Bactroban Ointment) 0 gm TOP BID [facility] Last Admin: 06/21/17 09:25 Dose: 1 applic Pantoprazole Sodium (Protonix Ec Tab) 40 mg PO DAILY [facility] Last Admin: 06/21/17 09:26 Dose: 40 mg Polyethylene Glycol (Miralax) 17 gm PO DAILY [facility] Last Admin: 06/20/17 10:55 Dose: Not Given Psyllium Hydrophilic Mucilloid (Hydrocil Instant) 1 pkt PO BID [facility] Last Admin: 06/21/17 09:26 Dose: 1 pkt Rosuvastatin Calcium (Crestor) 10 mg PO HS [facility] Last Admin: 06/20/17 21:31 Dose: 10 mg Tramadol HCl (Ultram) 25 mg PO TID PRN PRN Reason: Pain, moderate (4-7) Last Admin: 06/20/17 06:33 Dose: 25 mg Trolamine Salicylate (Aspercreme) 0 gm TOP TID [facility] Last Admin: 06/21/17 09:26 Dose: 85 gm - Labs Labs: 06/21/17 06:13 06/21/17 06:13 PT 14.3 SECONDS (9.7-12.2) H 06/13/17 12:53 INR 1.2 06/13/17 12:53 APTT 30 SECONDS (21-34) 06/20/17 20:16 - Constitutional Appears: No Acute Distress, Chronically Ill - Head Exam Head Exam: ATRAUMATIC, NORMAL INSPECTION - Eye Exam Eye Exam: EOMI, Normal appearance - Neck Exam Neck Exam: Normal Inspection. absent: Tenderness - Respiratory Exam Respiratory Exam: Clear to Ausculation Bilateral, NORMAL BREATHING PATTERN - Cardiovascular Exam Cardiovascular Exam: REGULAR RHYTHM, +S1 - GI/Abdominal Exam GI & Abdominal Exam: Soft. absent: Tenderness - Extremities Exam Extremities Exam: Normal Inspection. absent: Tenderness - Neurological Exam Neurological Exam: Alert, CN II-XII Intact - Skin Skin Exam: Dry, Warm Assessment and Plan (1) CHF (congestive heart failure) Status: Acute (2) Iron deficiency anemia Status: Acute (3) CAD (coronary artery disease) Status: Acute (4) Cellulitis of right leg Status: Acute - Assessment and Plan (Free Text) Plan: s/p IV mild fluid bolus serial chemistries hold nephrotoxics
--- NOTE | 2017-06-21 11:12 | CP.PCM.PN ---
<Johanny Corcoran - Last Filed: 06/21/17 11:10> Subjective - Date & Time of Evaluation Date of Evaluation: 06/21/17 Time of Evaluation: 11:10 - Subjective Subjective: Podiatry note for Dr. Andrade 77 year old female patient was seen at bedside this afternoon for healin ulceration to posterior right leg. Patient resting comfortably in bed at time of visit. Patient is AAOx3, NAD. Patient still complains of mild pain to entire right lower extremity distal to knee, and says its painful to elevate the leg or foot but has improved over the past few days. Patient denies F/C/N/V/SOB today Objective - Vital Signs/Intake and Output Vital Signs (last 24 hours): Temp Pulse Resp BP Pulse Ox 97.2 F L 60 20 109/65 96 06/21/17 07:58 06/21/17 09:25 06/21/17 07:58 06/21/17 09:25 06/21/17 07:58 Intake and Output: 06/21/17 06/21/17 06:59 18:59 Intake Total 920 Balance 920 - Medications Medications: Current Medications Acetaminophen (Tylenol 325mg Tab) 650 mg PO Q6 PRN PRN Reason: Fever >100.4 F Albuterol/Ipratropium (Duoneb 3 Mg/0.5 Mg (3 Ml) Ud) 3 ml INH RBID [facility] Last Admin: 06/21/17 08:36 Dose: Not Given Aspirin (Aspirin Chewable) 81 mg PO DAILY [facility] Last Admin: 06/21/17 09:26 Dose: 81 mg Carvedilol (Coreg) 3.125 mg PO DAILY [facility] Last Admin: 06/21/17 09:26 Dose: 3.125 mg Clopidogrel Bisulfate (Plavix) 75 mg PO DAILY [facility] Last Admin: 06/21/17 09:26 Dose: 75 mg Cyclobenzaprine HCl (Flexeril) 10 mg PO BID [facility] Last Admin: 06/21/17 09:26 Dose: 10 mg Docusate Sodium (Colace) 100 mg PO TID [facility] Ferrous Sulfate (Feosol) 325 mg PO DAILY [facility] Last Admin: 06/21/17 09:26 Dose: 325 mg Gabapentin (Neurontin) 200 mg PO TID [facility] Last Admin: 06/21/17 09:26 Dose: 200 mg Heparin Sodium (Porcine) (Heparin) 5,000 units SC Q8 [facility] Last Admin: 06/21/17 06:37 Dose: 5,000 units Ipratropium [place] (Atrovent Hfa) 2 puff IH RBID [facility] Last Admin: 06/21/17 08:36 Dose: Not Given Levothyroxine Sodium (Synthroid) 100 mcg PO DAILY@0630 [facility] Last Admin: 06/21/17 06:37 Dose: 100 mcg Morphine Sulfate (Morphine) 1 mg IVP Q4 PRN PRN Reason: Pain, severe (8-10) Mupirocin (Bactroban Ointment) 0 gm TOP BID [facility] Last Admin: 06/21/17 09:25 Dose: 1 applic Pantoprazole Sodium (Protonix Ec Tab) 40 mg PO DAILY [facility] Last Admin: 06/21/17 09:26 Dose: 40 mg Polyethylene Glycol (Miralax) 17 gm PO DAILY [facility] Last Admin: 06/21/17 09:26 Dose: Not Given Psyllium Hydrophilic Mucilloid (Hydrocil Instant) 1 pkt PO BID [facility] Last Admin: 06/21/17 09:26 Dose: 1 pkt Rosuvastatin Calcium (Crestor) 10 mg PO HS [facility] Last Admin: 06/20/17 21:31 Dose: 10 mg Tramadol HCl (Ultram) 25 mg PO TID PRN PRN Reason: Pain, moderate (4-7) Last Admin: 06/20/17 06:33 Dose: 25 mg Trolamine Salicylate (Aspercreme) 0 gm TOP TID [facility] Last Admin: 06/21/17 09:26 Dose: 85 gm - Labs Labs: 06/21/17 06:13 06/21/17 06:13 PT 14.3 SECONDS (9.7-12.2) H 06/13/17 12:53 INR 1.2 06/13/17 12:53 APTT 30 SECONDS (21-34) 06/20/17 20:16 - Constitutional Appears: Well, Non-toxic, No Acute Distress - Extremities Exam Additional comments: Right lower extremity exam DERM: Open wound noted to posterior aspect of right mid leg measuring 2.0cm x 1cm x 0.3cm with fibrotic base. no drainage, no malodor, no fluctuance noted. No erythema noted to wound periphery. No probe to bone noted. VASC: +2 lower extremity edema. DP/PT palpable 2/4. CFT<3 sec to all digits ORTHO: mild Pain on palpation to right lower extremity extending distally from knee to digits. NEURO: Gross sensation intact - Neurological Exam Neurological Exam: Alert, Awake, Oriented x3 - Psychiatric Exam Psychiatric exam: Normal Affect, Normal Mood Assessment and Plan - Assessment and Plan (Free Text) Assessment: 77 y/o female patient presents with open ulceration to posterior aspect of right calf, healing Plan: Patient was seen, evaluated at bedside Discussed in detail with attending Dr. Andrade Labs and vitals reviewed; afebrile, WBC 4.8 cont. IV abx as recommended Right lower extremity dressed with Mupirocin and DSD Wound does not appear clinically infected at this time Podiatry will continue to follow in house <Oneal Andrade - Last Filed: 06/22/17 12:15> Objective - Vital Signs/Intake and Output Vital Signs (last 24 hours): Temp Pulse Resp BP Pulse Ox 97.5 F L 56 L 20 108/69 97 06/22/17 08:36 06/22/17 10:47 06/22/17 08:36 06/22/17 10:47 06/22/17 08:36 Intake and Output: 06/22/17 06/22/17 06:59 18:59 Intake Total 720 Balance 720 - Medications Medications: Current Medications Acetaminophen (Tylenol 325mg Tab) 650 mg PO Q6 PRN PRN Reason: Fever >100.4 F Albuterol/Ipratropium (Duoneb 3 Mg/0.5 Mg (3 Ml) Ud) 3 ml INH RBID [facility] Last Admin: 06/22/17 09:02 Dose: Not Given Aspirin (Aspirin Chewable) 81 mg PO DAILY [facility] Last Admin: 06/22/17 10:49 Dose: 81 mg Carvedilol (Coreg) 3.125 mg PO DAILY [facility] Last Admin: 06/21/17 09:26 Dose: 3.125 mg Clopidogrel Bisulfate (Plavix) 75 mg PO DAILY [facility] Last Admin: 06/22/17 10:50 Dose: 75 mg Cyclobenzaprine HCl (Flexeril) 10 mg PO BID [facility] Last Admin: 06/22/17 10:50 Dose: 10 mg Docusate Sodium (Colace) 100 mg PO TID [facility] Last Admin: 06/22/17 10:54 Dose: Not Given Ferrous Sulfate (Feosol) 325 mg PO DAILY [facility] Last Admin: 06/22/17 10:50 Dose: 325 mg Gabapentin (Neurontin) 200 mg PO TID [facility] Last Admin: 06/22/17 10:51 Dose: 200 mg Heparin Sodium (Porcine) (Heparin) 5,000 units SC Q8 [facility] Last Admin: 06/22/17 05:44 Dose: 5,000 units Ipratropium [place] (Atrovent Hfa) 2 puff IH RBID [facility] Last Admin: 06/22/17 09:02 Dose: Not Given Levothyroxine Sodium (Synthroid) 100 mcg PO DAILY@0630 [facility] Last Admin: 06/22/17 05:44 Dose: 100 mcg Morphine Sulfate (Morphine) 1 mg IVP Q4 PRN PRN Reason: Pain, severe (8-10) Mupirocin (Bactroban Ointment) 0 gm TOP BID [facility] Last Admin: 06/22/17 10:48 Dose: 1 applic Pantoprazole Sodium (Protonix Ec Tab) 40 mg PO DAILY [facility] Last Admin: 06/22/17 10:49 Dose: 40 mg Polyethylene Glycol (Miralax) 17 gm PO DAILY [facility] Last Admin: 06/22/17 10:52 Dose: Not Given Psyllium Hydrophilic Mucilloid (Hydrocil Instant) 1 pkt PO BID [facility] Last Admin: 06/22/17 10:52 Dose: Not Given Rosuvastatin Calcium (Crestor) 10 mg PO HS [facility] Last Admin: 06/21/17 21:34 Dose: 10 mg Tramadol HCl (Ultram) 25 mg PO TID PRN PRN Reason: Pain, moderate (4-7) Last Admin: 06/21/17 21:37 Dose: 25 mg Trolamine Salicylate (Aspercreme) 0 gm TOP TID [facility] Last Admin: 06/22/17 10:48 Dose: 85 gm - Labs Labs: 06/22/17 07:01 06/22/17 07:01 PT 14.3 SECONDS (9.7-12.2) H 06/13/17 12:53 INR 1.2 06/13/17 12:53 APTT 30 SECONDS (21-34) 06/20/17 20:16 Attending/Attestation - Attestation I have fully participated in the care of the patient.: Yes I have reviewed all pertinent clinical information, including history, physical exam and plan: Yes
[2017-06-21] MEDS ORDERED: Bisacodyl 5mg EC Tab PO ONE (13:13)
[2017-06-21] MEDS: Tramadol 25 mg PO PRN ×2 (13:19→21:37)
--- NOTE | 2017-06-21 15:21 | CP.PCM.PN ---
Subjective - Date & Time of Evaluation Date of Evaluation: 06/21/17 Time of Evaluation: 07:00 - Subjective Subjective: PGY1-Medicine Note- Dr. Garcia's Service Patient seen and examined at bedside and in no acute distress. Patient says she is still having neck spasms, but they are getting better. Patient was able to urinate overnight and this am. Patient admits to constipation. Patient denies any shortness of breath, abdominal pain, nausea, vomiting. Objective - Vital Signs/Intake and Output Vital Signs (last 24 hours): Temp Pulse Resp BP Pulse Ox 97.2 F L 53 L 20 109/65 96 06/21/17 07:58 06/21/17 13:00 06/21/17 07:58 06/21/17 09:25 06/21/17 07:58 Intake and Output: 06/21/17 06/21/17 06:59 18:59 Intake Total 920 360 Balance 920 360 - Medications Medications: Current Medications Acetaminophen (Tylenol 325mg Tab) 650 mg PO Q6 PRN PRN Reason: Fever >100.4 F Albuterol/Ipratropium (Duoneb 3 Mg/0.5 Mg (3 Ml) Ud) 3 ml INH RBID [facility] Last Admin: 06/21/17 08:36 Dose: Not Given Aspirin (Aspirin Chewable) 81 mg PO DAILY [facility] Last Admin: 06/21/17 09:26 Dose: 81 mg Carvedilol (Coreg) 3.125 mg PO DAILY [facility] Last Admin: 06/21/17 09:26 Dose: 3.125 mg Clopidogrel Bisulfate (Plavix) 75 mg PO DAILY [facility] Last Admin: 06/21/17 09:26 Dose: 75 mg Cyclobenzaprine HCl (Flexeril) 10 mg PO BID [facility] Last Admin: 06/21/17 09:26 Dose: 10 mg Docusate Sodium (Colace) 100 mg PO TID [facility] Last Admin: 06/21/17 13:45 Dose: Not Given Ferrous Sulfate (Feosol) 325 mg PO DAILY [facility] Last Admin: 06/21/17 09:26 Dose: 325 mg Gabapentin (Neurontin) 200 mg PO TID [facility] Last Admin: 06/21/17 13:47 Dose: 200 mg Heparin Sodium (Porcine) (Heparin) 5,000 units SC Q8 [facility] Last Admin: 06/21/17 13:47 Dose: 5,000 units Ipratropium [place] (Atrovent Hfa) 2 puff IH RBID [facility] Last Admin: 06/21/17 08:36 Dose: Not Given Levothyroxine Sodium (Synthroid) 100 mcg PO DAILY@0630 [facility] Last Admin: 06/21/17 06:37 Dose: 100 mcg Morphine Sulfate (Morphine) 1 mg IVP Q4 PRN PRN Reason: Pain, severe (8-10) Mupirocin (Bactroban Ointment) 0 gm TOP BID [facility] Last Admin: 06/21/17 09:25 Dose: 1 applic Pantoprazole Sodium (Protonix Ec Tab) 40 mg PO DAILY [facility] Last Admin: 06/21/17 09:26 Dose: 40 mg Polyethylene Glycol (Miralax) 17 gm PO DAILY [facility] Last Admin: 06/21/17 09:26 Dose: Not Given Psyllium Hydrophilic Mucilloid (Hydrocil Instant) 1 pkt PO BID [facility] Last Admin: 06/21/17 09:26 Dose: 1 pkt Rosuvastatin Calcium (Crestor) 10 mg PO HS [facility] Last Admin: 06/20/17 21:31 Dose: 10 mg Tramadol HCl (Ultram) 25 mg PO TID PRN PRN Reason: Pain, moderate (4-7) Last Admin: 06/21/17 13:19 Dose: 25 mg Trolamine Salicylate (Aspercreme) 0 gm TOP TID [facility] Last Admin: 06/21/17 13:47 Dose: 85 gm - Labs Labs: 06/21/17 06:13 06/21/17 06:13 PT 14.3 SECONDS (9.7-12.2) H 06/13/17 12:53 INR 1.2 06/13/17 12:53 APTT 30 SECONDS (21-34) 06/20/17 20:16 - Additional Findings Additional findings: - Constitutional Appears: Non-toxic, No Acute Distress - Head Exam Head Exam: ATRAUMATIC, NORMAL INSPECTION, NORMOCEPHALIC - Eye Exam Eye Exam: EOMI, Normal appearance - ENT Exam ENT Exam: Mucous Membranes Moist - Respiratory Exam Respiratory Exam: Clear to Ausculation Bilateral, NORMAL BREATHING PATTERN - Cardiovascular Exam Cardiovascular Exam: REGULAR RHYTHM, RRR, +S1, +S2 - GI/Abdominal Exam GI & Abdominal Exam: Soft, Normal Bowel Sounds. absent: Tenderness - Extremities Exam Extremities Exam: Normal Inspection, Tenderness. absent: Full ROM (pain with movement), Pedal Edema - Neurological Exam Neurological Exam: Alert, Awake, Oriented x3 - Psychiatric Exam Psychiatric exam: Normal Affect, Normal Mood - Skin Skin Exam: Intact, Normal Color, Warm Assessment and Plan - Assessment and Plan (Free Text) Assessment: Acute on Chronic SYSTOLIC CHF exacerbation Improved BNP on admission 4500,Cardiac Catheterization in 03/2016 showed EF 25-30% CXR: pulmonary venous congestion vs vascular crowding due to hypo-inflation. Borderline cardiomyopathy Continue Carvedilol 3.125,ASA 81mg po daily, Continue Cozaar 25mg PO daily, Lasix 40mg IVP Qam, Lasix 20mg IVP Qpm Daily weights, Strict I/Os,Supplemental O2 prn ECHO done -EF 35% s/p ^ beats on VT d/w Dr Bautista 07/16 ,pending MUGA scan if EF <35 will need life vest or ICD eval as an outpatient * MUGA scan unable to be done because patient unable to be in proper positioning due to pain Lasix stopped due to elevated LFTs Bilateral Lower Extremity Pain, Idiopathic Peripheral neuropathy Lower extremity dopplers negative for DVT,Pain contol Ultram 25mg Q8H prn pain Gabapentin 200mg TID (Home dose lowered due to CKD) Decline in ambulation and leg pain with hypersensitivity -PT/OT and rehab Fever patient afebrile for 24 hours r/o infectious process Cxray to r/o pneumonia 06/18/17: mild venous congestion with cardiomegaly blood cultures- negative after 24 hours 06/19/17 UA: 1+blood, 11-20 casts UC (06/19/17): no growth Severe Coronary Artery Disease s/p stent placement Last stent was placed in [address] Kaur at [place] continue aspirin and plavix Anemia likely due to Iron deficiency/CRF -Iron<10, TIBC: 223, %Sat 4.5, B12: 612, Folate >20 iron infusion contraindicated due to possible infectious process Feosol 325mg po daily Right Lower Extremity Healing Wound Wound care consulted,Podiatry consulted, help appreciated Cipro stopped on 06/20 TEO on Chronic Kidney Disease Cr decreased from 3.3 to 2.7 on 06/21, do not resume Lasix Avoid nephrotoxic medications -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 ; right upper pole renal cyst 7.1cm -renal u/s: 7.7 x 7.0 x 7.3 cm right upper pole renal cyst d/w DR Meredith evaluate for AIN - Urine eos, serial chemistries Urinary Retention patient able to urinate overnight and this morning bladder scan PRN and straight cath monitor Hypertension Carvedilol 3.125mg PO daily Cozaar 25mg PO daily stopped on 06/18/17 due to increasing BUN/Cr Hypothyroidism Levothyroxine 100mcg daily Hyperlipdemia Crestor 10 mg po HS Neck stiffness pain meds increased flexeril to 10 mg po BID patient unable to lie flat for CT of cervical spine f/u xray of cervical spine Hepatitis C Negative original lab said reactive in error repeat Hep C antibody : negative f/u Hep C viral load Constipation continue Miralax and Metamucil Dulcolax one time dose will need enema if no bm Prophylactic Measure -Protonix 40mg PO daily -Heparin 5000U Q8H -Heart Healthy Diet, Salt restricted
--- NOTE | 2017-06-21 16:55 | RAD ---
PROCEDURE: Cervical Spine Radiographs. HISTORY: Pain. COMPARISON: None. FINDINGS: BONES: Cervical spine straightening. . No gross fracture. ; evaluation of C7 and posterior elements is particularly limited due to the obscuration attributed to shoulders Dens Intact. DISC SPACES: C5-6 and C6-7 disc space narrowing SOFT TISSUES: Extensive thyroid arytenoid and cricoid cartilage like calcifications suggested OTHER FINDINGS: None. IMPRESSION: Limited exam of C7 as above. No gross fracture or gross subluxation seen. Senescent changes
[2017-06-22] MEDS: Levothyroxine 100 MCG TAB PO SCH (05:44)
[2017-06-22 07:26] LABS: BASO % 0.6 % (0.0-2.0); EOS # 0.1 K/uL (0.0-0.7); EOS % 2.7 % (0.0-4.0); HEMOGLOBIN 8.4 g/dL (11.0-16.0); LYMPH # 0.9 K/uL (1.0-4.3); LYMPH % 19.8 % (20.0-40.0); MEAN CELL VOLUME 89.8 fL (81.0-99.0); MEAN CORPUSCULAR HEMOGLOBIN 29.7 pg (27.0-31.0); MEAN PLATELET VOLUME 7.9 fL (7.2-11.7); MONO # 0.3 K/uL (0.0-0.8); MONO % 5.6 % (0.0-10.0); NEUT # 3.2 K/uL (1.8-7.0); NEUT % 71.3 % (50.0-75.0); RBC 2.84 Mil/uL (3.80-5.20); RED CELL DISTRIBUTION WIDTH 15.6 % (11.5-14.5); WHITE BLOOD COUNT 4.6 K/uL (4.8-10.8)
[2017-06-22 08:22] LABS: ALB/GLOB RATIO 0.9 (1.0-2.1); ALBUMIN 2.8 g/dL (3.5-5.0); MAGNESIUM 2.4 mg/dL (1.6-2.3)
[2017-06-22] MEDS: Albuterol-Ipratrop 3 mg / 0.5 (3 ml) UD INH SCH (09:02)
[2017-06-22] MEDS: Ipratropium 17 mcg/puff-200 puff/12.5 gm HFA Inh IH SCH (09:02)
[2017-06-22] MEDS: Trolamine Salicylate 10% Cream (85 gm) TOP SCH ×2 (10:48→14:25)
[2017-06-22] MEDS: Pantoprazole 40 mg EC Tab PO SCH (10:49)
[2017-06-22] MEDS: POLYETHYLENE GLYCOL 3350 17 GM/Dose PACKET PO SCH (10:52)
[2017-06-22] MEDS: Psyllium Packet PO SCH (10:52)
--- NOTE | 2017-06-22 12:17 | CP.PCM.PN ---
Subjective - Date & Time of Evaluation Date of Evaluation: 06/22/17 Time of Evaluation: 12:16 - Subjective Subjective: Pt seen at bedside for f/u wound right leg. No acute change in status of wound. Cont with local wound care. Will cont to follow while inhouse. Objective - Vital Signs/Intake and Output Vital Signs (last 24 hours): Temp Pulse Resp BP Pulse Ox 97.5 F L 56 L 20 108/69 97 06/22/17 08:36 06/22/17 10:47 06/22/17 08:36 06/22/17 10:47 06/22/17 08:36 Intake and Output: 06/22/17 06/22/17 06:59 18:59 Intake Total 720 Balance 720 - Medications Medications: Current Medications Acetaminophen (Tylenol 325mg Tab) 650 mg PO Q6 PRN PRN Reason: Fever >100.4 F Albuterol/Ipratropium (Duoneb 3 Mg/0.5 Mg (3 Ml) Ud) 3 ml INH RBID [facility] Last Admin: 06/22/17 09:02 Dose: Not Given Aspirin (Aspirin Chewable) 81 mg PO DAILY [facility] Last Admin: 06/22/17 10:49 Dose: 81 mg Carvedilol (Coreg) 3.125 mg PO DAILY [facility] Last Admin: 06/21/17 09:26 Dose: 3.125 mg Clopidogrel Bisulfate (Plavix) 75 mg PO DAILY [facility] Last Admin: 06/22/17 10:50 Dose: 75 mg Cyclobenzaprine HCl (Flexeril) 10 mg PO BID [facility] Last Admin: 06/22/17 10:50 Dose: 10 mg Docusate Sodium (Colace) 100 mg PO TID [facility] Last Admin: 06/22/17 10:54 Dose: Not Given Ferrous Sulfate (Feosol) 325 mg PO DAILY [facility] Last Admin: 06/22/17 10:50 Dose: 325 mg Gabapentin (Neurontin) 200 mg PO TID [facility] Last Admin: 06/22/17 10:51 Dose: 200 mg Heparin Sodium (Porcine) (Heparin) 5,000 units SC Q8 [facility] Last Admin: 06/22/17 05:44 Dose: 5,000 units Ipratropium [place] (Atrovent Hfa) 2 puff IH RBID [facility] Last Admin: 06/22/17 09:02 Dose: Not Given Levothyroxine Sodium (Synthroid) 100 mcg PO DAILY@0630 [facility] Last Admin: 06/22/17 05:44 Dose: 100 mcg Morphine Sulfate (Morphine) 1 mg IVP Q4 PRN PRN Reason: Pain, severe (8-10) Mupirocin (Bactroban Ointment) 0 gm TOP BID [facility] Last Admin: 06/22/17 10:48 Dose: 1 applic Pantoprazole Sodium (Protonix Ec Tab) 40 mg PO DAILY [facility] Last Admin: 06/22/17 10:49 Dose: 40 mg Polyethylene Glycol (Miralax) 17 gm PO DAILY [facility] Last Admin: 06/22/17 10:52 Dose: Not Given Psyllium Hydrophilic Mucilloid (Hydrocil Instant) 1 pkt PO BID [facility] Last Admin: 06/22/17 10:52 Dose: Not Given Rosuvastatin Calcium (Crestor) 10 mg PO HS [facility] Last Admin: 06/21/17 21:34 Dose: 10 mg Tramadol HCl (Ultram) 25 mg PO TID PRN PRN Reason: Pain, moderate (4-7) Last Admin: 06/21/17 21:37 Dose: 25 mg Trolamine Salicylate (Aspercreme) 0 gm TOP TID [facility] Last Admin: 06/22/17 10:48 Dose: 85 gm - Labs Labs: 06/22/17 07:01 06/22/17 07:01 PT 14.3 SECONDS (9.7-12.2) H 06/13/17 12:53 INR 1.2 06/13/17 12:53 APTT 30 SECONDS (21-34) 06/20/17 20:16
[2017-06-22 13:21] LABS: SQUAMOUS EPITHIAL 2 /hpf (0-5); URINE BACTERIA RARE (<OCC); URINE BILIRUBIN NEGATIVE (NEGATIVE); URINE BLOOD NEGATIVE (NEGATIVE); URINE CLARITY Clear (Clear); URINE COLOR Yellow (YELLOW); URINE GLUCOSE (UA) NORMAL (Normal); URINE LEUKOCYTE ESTERASE NEG Leu/uL (Negative); URINE NITRATE NEGATIVE (NEGATIVE); URINE PROTEIN NEGATIVE (NEGATIVE); URINE UROBILINOGEN NORMAL mg/dL (0.2-1.0)
--- NOTE | 2017-06-22 13:32 | CP.PCM.DIS ---
Provider - Provider Date of Admission: 06/13/17 15:12 Attending physician: Jackie Vargas MD Primary care physician: ONEL: Guille Consults: Cardio: Michele Nephro: Jose Podiatry: Raymond Time Spent in preparation of Discharge (in minutes): 45 Diagnosis - Discharge Diagnosis (1) CHF (congestive heart failure) Status: Chronic (2) Idiopathic peripheral neuropathy Status: Chronic (3) Neck pain Status: Resolved (4) Iron deficiency anemia Status: Chronic (5) CAD (coronary artery disease) Status: Chronic (6) CKD (chronic kidney disease) stage 4, GFR 15-29 ml/min Status: Chronic (7) Cellulitis of right leg Status: Chronic Hospital Course - Lab Results Lab Results: Micro Results 06/18/17 08:58 Blood Blood Culture - Preliminary NO GROWTH AFTER 4 DAYS 06/18/17 08:58 Blood Blood Culture - Preliminary NO GROWTH AFTER 4 DAYS 06/19/17 12:00 Urine Urine Culture - Final No Growth (<1,000 CFU/ML) Most Recent Lab Values WBC 4.6 K/uL (4.8-10.8) L 06/22/17 07:01 RBC 2.84 Mil/uL (3.80-5.20) L 06/22/17 07:01 Hgb 8.4 g/dL (11.0-16.0) L 06/22/17 07:01 Hct 25.5 % (34.0-47.0) L 06/22/17 07:01 MCV 89.8 fL (81.0-99.0) 06/22/17 07:01 MCH 29.7 pg (27.0-31.0) 06/22/17 07:01 MCHC 33.0 g/dL (33.0-37.0) 06/22/17 07:01 RDW 15.6 % (11.5-14.5) H 06/22/17 07:01 Plt Count 203 K/uL (130-400) 06/22/17 07:01 MPV 7.9 fL (7.2-11.7) 06/22/17 07:01 Neut % (Auto) 71.3 % (50.0-75.0) 06/22/17 07:01 Lymph % (Auto) 19.8 % (20.0-40.0) L 06/22/17 07:01 [place] % (Auto) 5.6 % (0.0-10.0) 06/22/17 07:01 Eos % (Auto) 2.7 % (0.0-4.0) 06/22/17 07:01 Baso % (Auto) 0.6 % (0.0-2.0) 06/22/17 07:01 Neut # 3.2 K/uL (1.8-7.0) 06/22/17 07:01 Lymph # 0.9 K/uL (1.0-4.3) L 06/22/17 07:01 [place]rell # 0.3 K/uL (0.0-0.8) 06/22/17 07:01 Eos # 0.1 K/uL (0.0-0.7) 06/22/17 07:01 Baso # 0.0 K/uL (0.0-0.2) 06/22/17 07:01 Neutrophils % (Manual) 82 % (50-75) H 06/13/17 12:53 Band Neutrophils % 1 % (0-2) 06/13/17 12:53 Lymphocytes % (Manual) 10 % (20-40) L 06/13/17 12:53 Monocytes % (Manual) 7 % (0-10) 06/13/17 12:53 Platelet Estimate Normal (NORMAL) 06/13/17 12:53 Hypochromasia (manual) Slight 06/13/17 12:53 Poikilocytosis (manual Slight 06/13/17 12:53 Anisocytosis (manual) Slight 06/13/17 12:53 Target Cells Slight 06/13/17 12:53 PT 14.3 SECONDS (9.7-12.2) H 06/13/17 12:53 INR 1.2 06/13/17 12:53 APTT 30 SECONDS (21-34) 06/20/17 20:16 Sodium 134 mmol/L (132-148) 06/22/17 07:01 Potassium 4.1 mmol/L (3.6-5.2) 06/22/17 07:01 Chloride 100 mmol/L (98-107) 06/22/17 07:01 Carbon Dioxide 27 mmol/L (22-30) 06/22/17 07:01 Anion Gap 11 (10-20) 06/22/17 07:01 BUN 77 mg/dL (7-17) H 06/22/17 07:01 Creatinine 2.2 mg/dL (0.7-1.2) H 06/22/17 07:01 Est GFR ( Amer) 26 06/22/17 07:01 Est GFR (Non-Af Amer) 22 06/22/17 07:01 Random Glucose 98 mg/dL (65-105) 06/22/17 07:01 Hemoglobin A1c 6.1 % (4.2-6.5) 06/14/17 06:41 Calcium 8.0 mg/dl (8.6-10.4) L 06/22/17 07:01 Phosphorus 3.2 mg/dL (2.5-4.5) 06/22/17 07:01 Magnesium 2.4 mg/dL (1.6-2.3) H 06/22/17 07:01 Iron < 10 ug/dL (37-170) L 06/15/17 07:23 TIBC 223 ug/dL (250-450) L 06/15/17 07:23 % Saturation 4.5 (20-55) L 06/15/17 07:23 Ferritin 113.0 ng/mL 06/15/17 07:23 Total Bilirubin 0.2 mg/dL (0.2-1.3) 06/22/17 07:01 AST 86 U/L (14-36) H D 06/22/17 07:01 ALT 42 U/L (9-52) 06/22/17 07:01 Alkaline Phosphatase 86 U/L (38-126) 06/22/17 07:01 Total Creatine Kinase 43 U/L (30-135) 06/17/17 08:50 CK-MB (Mass) < 0.22 ng/mL (0.0-3.38) 06/17/17 08:50 Troponin I 0.0360 ng/mL (0.00-0.120) 06/17/17 08:50 NT-Pro-B Natriuret Pep 4500 pg/mL (0-900) H 06/13/17 12:53 Total Protein 6.1 g/dL (6.3-8.3) L 06/22/17 07:01 Albumin 2.8 g/dL (3.5-5.0) L 06/22/17 07:01 Globulin 3.3 gm/dL (2.2-3.9) 06/22/17 07:01 Albumin/Globulin Ratio 0.9 (1.0-2.1) L 06/22/17 07:01 Triglycerides 79 mg/dL (0-149) 06/14/17 06:41 Cholesterol 98 mg/dL (0-199) 06/14/17 06:41 LDL Cholesterol Direct 35 mg/dL (0-129) 06/14/17 06:41 HDL Cholesterol 29 mg/dL (30-70) L 06/14/17 06:41 Lipase 215 U/L (23-300) 06/13/17 12:53 Vitamin B12 612 pg/mL (239-931) 06/15/17 07:23 Folate > 20.0 ng/mL 06/15/17 07:23 Free T4 1.12 ng/dL (0.78-2.19) 06/14/17 06:41 TSH 3rd Generation 4.08 mIU/L (0.46-4.68) 06/14/17 06:41 PTH Intact Whole [place] 54 pg/mL (14-64) 06/17/17 08:50 Urine Color Yellow (YELLOW) 06/22/17 13:07 Urine Clarity Clear (Clear) 06/22/17 13:07 Urine pH 5.0 (5.0-8.0) 06/22/17 13:07 Ur Specific [place] 1.015 (1.003-1.030) 06/22/17 13:07 Urine Protein Negative mg/dL (NEGATIVE) 06/22/17 13:07 Urine Glucose (UA) Normal mg/dL (Normal) 06/22/17 13:07 Urine Ketones Negative mg/dL (NEGATIVE) 06/22/17 13:07 Urine Blood Negative (NEGATIVE) 06/22/17 13:07 Urine Nitrate Negative (NEGATIVE) 06/22/17 13:07 Urine Bilirubin Negative (NEGATIVE) 06/22/17 13:07 Urine Urobilinogen Normal mg/dL (0.2-1.0) 06/22/17 13:07 Ur Leukocyte Esterase Neg [place]/uL (Negative) 06/22/17 13:07 Urine WBC (Auto) 4 /hpf (0-5) 06/22/17 13:07 Urine RBC (Auto) 2 /hpf (0-3) 06/22/17 13:07 Ur Squamous Epith Cells 2 /hpf (0-5) 06/22/17 13:07 Urine Bacteria Rare (<OCC) 06/22/17 13:07 Hyaline Casts 3-5 /lpf (0-2) H 06/22/17 13:07 Stool Occult Blood Negative (NEGATIVE) 06/16/17 21:52 Hep Bs Antigen Negative (NEGATIVE) 06/17/17 08:50 Hepatitis C Antibody Negative (NEGATIVE) 06/19/17 17:27 HCV RNA Qual (TMA) Not detected 06/19/17 07:10 - Hospital Course Hospital Course: "CC: "My legs hurt, I cant stand on them" HPI: Patient is a 77 year old female with past medical history of CHF, AL, HTN, HLD, CKD, CAD s/p 4 stents (last stent was placed in 2015) presents to the ED for bilateral lower extremity pain that has progressively getting worse. Patient has also noticed lower extremity swelling. Patient ambulates with a rollator however has not been able to walk due to the pain. Patient took ibuprofen at home with no relief in symptoms. Patient states that she does get short of breath on exertion, however she is currently at her baseline. Patient was recently seen in the ED for abdominal pain. At that time she was discharged on Ciprofloxacin, Motrin and Zantac. Denies fevers, chills, headaches, dizziness , cp, palpitations, urinary symptoms. Admits to feeling constipated, last BM was on Sunday." Hospital Course: Patient was admitted for acute on chronic systolic CHF exacerbation. Patient's BNP level was 4500, with CXR showing pulmonary venous congestion vs. vascular crowding due to hypoinflation, and borderline cardiomyopathy. Cardiology (Dr. Bautista) was consulted. She was given Carvedilol 3.125, aspirin 81 mg po daily, Cozaar 25 mg po daily, Lasix 40 mg IVP qam, and Lasic 20 mg IVP qpm. Patient's echo showed ischemic cardiomyopathy with moderately reduced LVEF of 35%. Her previous cardiac cath was done in 03/2016, which showed EF of 25-30%. Her weight and inputs, and outputs were monitored daily, and she was placed on salt restricted diet. MUGA scan was also recommended but was unable to be done because of patient being unable to be in proper positioning due to pain. Patient also complained of bilateral lower extremity pain which was controlled with Ultram 25 mg. Her home dose of Gabapentin was lowered to 200 mg TID due to CKD. Patient was evaluated by PT and will be going to subacute rehab for further management. Patient had fever, and CXR was performed to rule out pneumonia which showed mild venous congestion with cardiomegaly. Her blood cultures were negative, and her UA showed +1 blood, with hyaline casts which resolved on the following UA. Her fever has resolved. Patient also complained of neck stiffness, which was managed with Flexeril [address] scan of the cervical spine was recommended but patient refused the scan due to being unable to lie down. Patient's cervical spine X-ray showed C5-6 and C6-7 disc spacing narrowing, but no gross fracture or gross subluxation. Patient's TEO on CKD as noted by increasing BUN/Cr was managed by stopping Lasix as per nephrology (Dr. Meredith), and nephrotoxic medications were avoided. Renal ultrasound was markedly limited, but showed a 7.7x7.0x7.3 cm right upper pole renal cyst. Patient's Cr is trending down currently at 2.2, with highest level at 3.4. Patient's Hepatitis C antibody tested negative. Patient complained of constipation during the course of her stay, and was managed with Miralax and Metamucil. Patient also complained of urinary retention , for which bladder scan was performed. Patient's constipation and urinary retention have been resolved. Patient had a healing wound on right leg posterior aspect for which podiatry ( Dr. Andrade) was consulted. Right lower extremity was dressed with Xeroform, DSD and wound was monitored. Patient's history of severe CAD s/p stent placement was managed with aspirin and Plavix. Her last stent was placed in [address] Kaur at [place]. Patient's history of chronic anemia was managed with regular monitoring, and Feosol 325 mg po. Her baseline Hb is 9-10. Her Hb has been stable at 8.5-9. Patient's history of hypertension was managed with Carvedilol 3.125 mg po daily , and Cozaar 25 mg po daily. Cozaar was stopped on 06/18 due to increasing BUN/Cr. Patient's hypothyroidism was managed with levothyroxine 100 mcg daily, and Crestor 10 mg po for history of hyperlipidemia. This is a summary of patient's hospital course. Please see chart for full details. Patient is stable for discharge as per Dr. Garica, and she will be going to subacute rehab. Patient to return to ED if symptoms return. Discharge Exam - Head Exam Head Exam: ATRAUMATIC, NORMAL INSPECTION, NORMOCEPHALIC - Eye Exam Eye Exam: EOMI, Normal appearance - Respiratory Exam Respiratory Exam: Clear to PA & Lateral, NORMAL BREATHING PATTERN - Cardiovascular Exam Cardiovascular Exam: REGULAR RHYTHM, RRR, +S1, +S2 - GI/Abdominal Exam GI & Abdominal Exam: Normal Bowel Sounds, Soft. absent: Tenderness - Extremities Exam Extremities exam: normal inspection, tenderness Additional comments: mild tenderness - Neurological Exam Neurological exam: Alert, Oriented x3 - Psychiatric Exam Psychiatric exam: Normal Affect, Normal Mood - Skin Skin Exam: Intact, Normal Color, Warm Discharge Plan - Follow Up Plan Condition: FAIR Disposition: REHAB FACILITY/REHAB UNIT Instructions: Heart Failure (DC), Acute Kidney Injury (DC), Heart Healthy Diet (DC), Acute Abdominal Pain (DC) Additional Instructions: Patient stable for discharge to [facility] as per Dr. Garcia and Dr. Meredith. Patient to decrease home Lasix to 20mg po daily, patient to continue other medications as listed above. Patient to follow up with Dr. Meredith (nephro) after [facility]. Patient to follow up with vascular nurse, Dr Parker and PMD, Dr. Han within 2 weeks of discharge from [facility]. Patient explained instructions who understands and agrees. Patient to return to ED if symptoms return. Referrals: Heath Han [Staff Provider] - Gavin Meredith MD [Staff Provider] - Mary Parker MD [Staff Provider] -
--- NOTE | 2017-06-22 13:43 | PCM.HF ---
Heart Failure Core Measure - Heart Failure Ejection Fraction: Less Than 40 % Left Ventricular Function to be assessed after discharge: Yes MARIAMA Inhibitor Prescribed: No Contraindication/Reason for not providing: increasing BUN/Cr Beta-Eric Prescribed: Carvedilol Angiotensin II Receptor Eric Prescribed: No Contraindication/Reason for not providing: increasing BUN/Cr AnticoagulationTherapy for Atrial Fibrillation/Atrialflutter: No Contraindication/Reason for not providing: patient has no history of a fib Aldosterone Antagonist Prescribed: No Contraindication/Reason for not providing: not indicated Hydralazine Nitrate Prescribed: No Contraindication/Reason for not providing: no indicated Implantable Cardioverter Defibrillator Therapy: No Contraindication/Reason for not providing: will be further evaluated as an outpatient for possible AICD/ life best Cardiac Resynchronization Therapy Prescribed: No Contraindication/Reason for not providing: not indicated - Follow up Will be discharged to: Assisted Facility (Subacte Rehab) Follow Up Date (must be within 7 days from discharge): 06/28/17 Follow Up Time: 09:00
--- NOTE | 2017-06-22 14:14 | CP.PCM.PN ---
Subjective - Date & Time of Evaluation Date of Evaluation: 06/22/17 Time of Evaluation: 14:12 - Subjective Subjective: Feels better; still with vague abdominal pains, neck pains Creat decreased to 2.2 Recommended smaller diuretic dose upon discharge Likely for discharge soon Objective - Vital Signs/Intake and Output Vital Signs (last 24 hours): Temp Pulse Resp BP Pulse Ox 97.5 F L 65 20 108/69 97 06/22/17 08:36 06/22/17 12:00 06/22/17 08:36 06/22/17 10:47 06/22/17 08:36 Intake and Output: 06/22/17 06/22/17 06:59 18:59 Intake Total 720 Balance 720 - Medications Medications: Current Medications Acetaminophen (Tylenol 325mg Tab) 650 mg PO Q6 PRN PRN Reason: Fever >100.4 F Albuterol/Ipratropium (Duoneb 3 Mg/0.5 Mg (3 Ml) Ud) 3 ml INH RBID [facility] Last Admin: 06/22/17 09:02 Dose: Not Given Aspirin (Aspirin Chewable) 81 mg PO DAILY [facility] Last Admin: 06/22/17 10:49 Dose: 81 mg Carvedilol (Coreg) 3.125 mg PO DAILY [facility] Last Admin: 06/21/17 09:26 Dose: 3.125 mg Clopidogrel Bisulfate (Plavix) 75 mg PO DAILY [facility] Last Admin: 06/22/17 10:50 Dose: 75 mg Cyclobenzaprine HCl (Flexeril) 10 mg PO BID [facility] Last Admin: 06/22/17 10:50 Dose: 10 mg Docusate Sodium (Colace) 100 mg PO TID [facility] Last Admin: 06/22/17 10:54 Dose: Not Given Ferrous Sulfate (Feosol) 325 mg PO DAILY [facility] Last Admin: 06/22/17 10:50 Dose: 325 mg Gabapentin (Neurontin) 200 mg PO TID [facility] Last Admin: 06/22/17 10:51 Dose: 200 mg Heparin Sodium (Porcine) (Heparin) 5,000 units SC Q8 [facility] Last Admin: 06/22/17 05:44 Dose: 5,000 units Ipratropium [place] (Atrovent Hfa) 2 puff IH RBID [facility] Last Admin: 06/22/17 09:02 Dose: Not Given Levothyroxine Sodium (Synthroid) 100 mcg PO DAILY@0630 [facility] Last Admin: 06/22/17 05:44 Dose: 100 mcg Morphine Sulfate (Morphine) 1 mg IVP Q4 PRN PRN Reason: Pain, severe (8-10) Mupirocin (Bactroban Ointment) 0 gm TOP BID [facility] Last Admin: 06/22/17 10:48 Dose: 1 applic Pantoprazole Sodium (Protonix Ec Tab) 40 mg PO DAILY [facility] Last Admin: 06/22/17 10:49 Dose: 40 mg Polyethylene Glycol (Miralax) 17 gm PO DAILY [facility] Last Admin: 06/22/17 10:52 Dose: Not Given Psyllium Hydrophilic Mucilloid (Hydrocil Instant) 1 pkt PO BID [facility] Last Admin: 06/22/17 10:52 Dose: Not Given Rosuvastatin Calcium (Crestor) 10 mg PO HS [facility] Last Admin: 06/21/17 21:34 Dose: 10 mg Tramadol HCl (Ultram) 25 mg PO TID PRN PRN Reason: Pain, moderate (4-7) Last Admin: 06/21/17 21:37 Dose: 25 mg Trolamine Salicylate (Aspercreme) 0 gm TOP TID [facility] Last Admin: 06/22/17 10:48 Dose: 85 gm - Labs Labs: 06/22/17 07:01 06/22/17 07:01 PT 14.3 SECONDS (9.7-12.2) H 06/13/17 12:53 INR 1.2 06/13/17 12:53 APTT 30 SECONDS (21-34) 06/20/17 20:16 - Constitutional Appears: No Acute Distress, Chronically Ill - Head Exam Head Exam: ATRAUMATIC, NORMAL INSPECTION - Eye Exam Eye Exam: EOMI, Normal appearance - Neck Exam Neck Exam: Normal Inspection. absent: Tenderness - Respiratory Exam Respiratory Exam: Clear to Ausculation Bilateral, NORMAL BREATHING PATTERN - Cardiovascular Exam Cardiovascular Exam: REGULAR RHYTHM, +S1 - GI/Abdominal Exam GI & Abdominal Exam: Soft. absent: Tenderness - Extremities Exam Extremities Exam: Normal Inspection. absent: Tenderness - Neurological Exam Neurological Exam: Awake, CN II-XII Intact - Skin Skin Exam: Dry, Warm Assessment and Plan (1) CHF (congestive heart failure) Status: Acute (2) Iron deficiency anemia Status: Chronic (3) CAD (coronary artery disease) Status: Chronic (4) Cellulitis of right leg Status: Chronic - Assessment and Plan (Free Text) Plan: Recommend follow up chemistries , BP as outpt
[2017-06-22 14:25] VITALS: BP 113/70; PULSE 62; TEMP 98; O2SAT 100
[2017-06-22] MEDS ORDERED: Simethicone 80 mg Chewtab PO ONE (15:15)
== END 2017-06-22 15:49 | DRG 291 ==
LOC: C.ER 11:57 → C.9E 15:12 → C.6T 16:48
PROVIDERS: ADMIT Internal Medicine; ATTEND Internal Medicine
DX: I13.0 Hypertensive heart and chronic kidney disease with heart failure and stage 1 through stage 4 chronic kidney disease, or unspecified chronic kidney disease (principal); I50.23 Acute on chronic systolic (congestive) heart failure; N18.4 Chronic kidney disease, stage 4 (severe); I27.20 Pulmonary hypertension, unspecified; L03.115 Cellulitis of right lower limb; N17.9 Acute kidney failure, unspecified; L97.519 Non-pressure chronic ulcer of other part of right foot with unspecified severity; I25.5 Ischemic cardiomyopathy; I25.10 Atherosclerotic heart disease of native coronary artery without angina pectoris; D50.9 Iron deficiency anemia, unspecified; E87.6 Hypokalemia; E03.9 Hypothyroidism, unspecified; E78.5 Hyperlipidemia, unspecified; I25.2 Old myocardial infarction; Z95.5 Presence of coronary angioplasty implant and graft; K59.00 Constipation, unspecified; R33.9 Retention of urine, unspecified; G60.9 Hereditary and idiopathic neuropathy, unspecified